=== PATIENT | female | born 1955 | race Caucasian/White ===

== ENCOUNTER 2020-06-16 07:56 | Outpatient (REF) | payer MEDICARE, BC, SELFPAY ==
--- NOTE | 2020-06-16 08:12 | US_ITS ---
EXAMINATION: US ABDOMEN COMPLETE CLINICAL INFORMATION: Cholelithiasis. COMPARISON: Abdominal ultrasound dated 04/14/2011 TECHNIQUE: Real-time imaging of the abdominal viscera. FINDINGS: PANCREAS: Normal. ABDOMINAL AORTA: The visualized proximal segment is normal in caliber. INFERIOR VENA CAVA: Visualized portions are normal. LIVER: The liver demonstrates normal size, contour and echogenicity. No focal lesion or intrahepatic biliary duct dilatation. GALLBLADDER: There is some debris within the gallbladder. No gallbladder wall thickening, tenderness, or pericholecystic fluid. COMMON BILE DUCT: Normal in caliber measuring 0.4 cm in diameter. RIGHT KIDNEY: No hydronephrosis. No renal calculi or focal parenchymal lesions. The kidney measures 11.0 cm in maximum dimension. LEFT KIDNEY: No hydronephrosis. No renal calculi or focal parenchymal lesions. The kidney measures 10.0 cm in maximum dimension. SPLEEN: Normal. The spleen measures 9.3 cm in maximum dimension. FREE FLUID: None. IMPRESSION: No evidence of acute cholecystitis.
--- NOTE | 2020-06-16 08:12 | US_ITS ---
EXAMINATION: US THYROID CLINICAL INFORMATION: Thyroid nodule. COMPARISON: Ultrasound thyroid soft tissues dated 05/15/2019 and 05/20/2018. TECHNIQUE: Linear transducer grayscale and color Doppler examination with attention to the region of the thyroid. FINDINGS: SIZE: Measurements of the thyroid lobes and nodules are given in sagittal, anteroposterior and transverse dimensions respectively. Right Thyroid Lobe: 4.7 x 2.0 x 1.7 cm, volume 8.1 mL. Previously 4.5 x 2.1 x 1.4 cm, volume 6.7 mL. Parenchyma: The gland echotexture is homogeneous. Thyroid vascularity is normal. Left Thyroid Lobe: 4.2 x 1.3 x 1.3 cm, volume 3.8 mL. Previously 4.1 x 1.3 x 1.3 cm, volume 3.5 mL. Parenchyma: The gland echotexture is homogeneous. Thyroid vascularity is normal. Isthmus: 0.4 cm in maximum AP dimension. Previously 0.3 cm. RIGHT THYROID LOBE: There is 1 nodule seen. 1. Location: Upper. Size: 0.2 x 0.1 x 0.2 cm. Previous: Not seen. Nodule characteristics: Hypoechoic and cystic, smooth margin, no calcification and no intranodular flow. ISTHMUS: No nodules. LEFT THYROID LOBE: There are 2 nodules seen. 1. Location: Lower/lateral. Size: 0.3 x 0.2 x 0.2 cm. Previous: 0.3 x 0.2 x 0.2 cm. Nodule characteristics: Hypoechoic and cystic, smooth margin, no calcification and no intranodular flow. 2. Location: Lower. Size: 0.3 x 0.2 x 0.2 cm. Previous: 0.3 x 0.2 x 0.3 cm. Nodule characteristics: Hypoechoic and cystic, smooth margin, no calcification and no intranodular flow. NODES: No lymphadenopathy is seen in the tissue surrounding the thyroid gland. IMPRESSION: Small bilateral cystic nodules, newly appreciated on the right and unchanged on the left from 2019 exam.
== END 2020-06-16 07:57 | disposition home or self-care (01) ==
LOC: HO.US 07:56
PROVIDERS: PCP Internal Medicine; Visit Provider Internal Medicine
DX: E04.1 Nontoxic single thyroid nodule (principal); K80.20 Calculus of gallbladder without cholecystitis without obstruction
CPT/HCPCS: 76536; 76700

== ENCOUNTER 2020-10-01 12:02 | Outpatient (REF) | payer MEDICARE, BC, SELFPAY | END 2020-10-01 12:03 | disposition home or self-care (01) | LOC: HO.WFDLDS 12:02 | PROVIDERS: PCP Internal Medicine; Visit Provider Internal Medicine | DX: Z20.822 Contact with and (suspected) exposure to COVID-19 (principal) | CPT/HCPCS: 36415; C9803; U0003 ==

== ENCOUNTER 2021-03-04 06:27 | Day surgery (SDC) | payer MEDICARE, BC, SELFPAY ==
[2021-03-04] VITALS (9 sets, daily range): BP systolic 100–137; BP diastolic 58–76; PULSE 51–77; RESP 14–18; TEMP 36.5–36.9; O2SAT 97–100; BMI 20.2
--- NOTE | 2021-03-04 07:25 | P.HPSUR_ITS ---
Pre-Procedural Eval Section A Date of Service: 03/04/21 Section B Chief Complaint: screening Details of Present Illness: screening Present Medications: see Short Stay Collaborative assessment Medical History: No relevant PMH Allergies: Allergies Allergy/AdvReac Type Severity Reaction Status Date / Time No Known Allergies Allergy Unverified 05/27/20 16:05 seasonal Allergy Unknown Uncoded 06/30/19 00:00 Review of Systems Sugical H&P ROS: Negative: Constitution, Cardiovascular, Respiratory, Neurological, Psychiatric, Hem-Onc, Allergic/Immunologic, Gastrointestinal, Genitourinary, Musculoskeletal, Integumentary, Endocrine and Eyes/Ears/Nose/Throat Exam Surgical H&P Exam: Normal: HEENT, Normal: Heart, Normal: Lungs, Normal: Extre mities, Normal: Abdomen, Normal: Skin and Normal: Neurological Plan I have reviewed the history and physical and performed a pertinent physical examination on my patient. No changes have occurred unless specified.
--- NOTE | 2021-03-04 07:37 | HO.ANESPROP2 ---
HPI - Anesthesia Eval Consult details Narrative: 65 yo female patient here for colonoscopy PMFSH Active Problems Active Problems: All Active Problems (Updated 02/25/21 @ 08:42 by Tiffany Gallagher) Exposure to COVID-19 virus (Acute) Nausea and vomiting (Acute) Digestive symptoms (Acute) Hypercholesterolemia (Acute) Past Medical History Medical History (Updated 02/25/21 @ 08:42 by Tiffany Gallagher) Digestive symptoms Hypercholesterolemia Nausea & vomiting Nausea and vomiting OAB (overactive bladder) Family History Family history of problems with anesthesia: No Surgical History Surgical History (Updated 02/25/21 @ 08:36 by Tiffany Gallagher) Hx of colonoscopy Hx of eye surgery History of Problems with Anesthesia: Yes (PONV ?after conscious sedation) Social History Social History Patient Tobacco Use Status: Never used Tobacco Second Hand Smoke Exposure: No Use of substances other than those prescribed or required for medical reasons: No Are you DNR?: No Advance Directives: No Advance Directives Information Provided: No Advance Directives Date on File: 06/16/20 Nutrition Risks: No Nutritional Risk Patient : No : No Poor oral hygiene: No Meds Allergies Allergy/AdvReac Type Severity Reaction Status Date / Time No Known Allergies Allergy Unverified 05/27/20 16:05 seasonal Allergy Unknown Uncoded 06/30/19 00:00 Home Medications Medication Instructions Recorded Confirmed Last Taken Type oxybutynin chloride 5 mg 5 mg PO DAILY 09/27/20 02/25/21 Unknown History tablet,extended release 24 hr simvastatin 5 mg tablet 5 mg PO BEDTIME 09/27/20 02/25/21 Unknown History flaxseed oil 1,000 mg PO BID 02/25/21 02/25/21 Unknown History fluticasone propionate 2 spray INTRANASAL DAILY 02/25/21 02/25/21 Unknown History Exam Exam Date and Time: March 04, 2021 0737 Height,Weight and Vital Signs: Height 5 ft 4.5 in Weight 54.431 kg Last Vital Signs Temp 97.7 F 03/04/21 06:47 Pulse 56 03/04/21 06:47 Resp 18 03/04/21 06:47 BP 137/76 03/04/21 06:47 Pulse Ox 97 03/04/21 06:47 Airway Mallampati Class: II TM Dist: >3cm Neck ROM: Full Heart: RRR Lungs: CTAB Assessment and Plan Assessment Anesthesia Assessment: Anesthesia Plan Discussed and Chart Reviewed Final Anesthetic Review NPO: Yes ASA Class: II Final Preanesthetic Review: No Changes in Pt Med Stat, Meds/Allgs Chart Reviewed, Consent Obtained/Reviewed and Anes Risks/Benef Reviewed Patient Risk: Low Procedure Risk: Low Assessment/Block/Sedation in SS: Assess/Block/Sedation-SS Anesthetic Plan Anesthetic Plan: MAC: Disposition: Standard PACU
--- NOTE | 2021-03-04 08:25 | PM.OP ---
Brief Operative Note Date of Service: 03/04/21 Pre-op diagnosis: screening Procedure: colonosocpy Surgeon: Fabricio Sandoval Anesthesia: MAC Was an Guide Delegate used for this Procedure?: No Estimated blood loss (mL): 2 Pathology: other (rectal bx) Condition: stable Disposition: other
[2021-03-04] MEDS: ondansetron HCL 4 MG/2 ML VIAL IVPUSH (08:39)
[2021-03-04] MEDS: Lactated Ringers 1,000 ML 100 ML IVCONT (09:00)
[2021-03-04] MEDS: Scopolamine 1.5 MG PATCH.TD.3 EAR-BEHIND (09:08)
--- NOTE | 2021-03-04 14:31 | OP_ITS ---
SURGEON: Fabricio Sandoval MD INDICATIONS: Colon cancer screening and family history of colon cancer. PREOPERATIVE DIAGNOSIS: POSTOPERATIVE DIAGNOSIS: PROCEDURE PERFORMED: Colonoscopy to the terminal ileum with biopsy. ESTIMATED BLOOD LOSS: COMPLICATIONS: ANESTHESIA: Monitored anesthesia care. ASSISTANTS: SPECIMENS: DESCRIPTION OF PROCEDURE: History and physical was performed. The risks and benefits of the procedure were explained to the patient, and informed consent was obtained. The patient was placed in the left lateral decubitus position. A digital rectal exam was performed and it was found to be normal. The Olympus pediatric video colonoscope was introduced into the rectum and advanced to the cecum with the assistance of abdominal wall pressure. The cecum was identified by transillumination, palpation, and identification of the ileocecal valve. Examination was performed. The scope was removed. She tolerated the procedure well and was taken to the recovery area in stable condition. FINDINGS: The terminal ileum was examined and it appeared normal. The visualized colonic mucosa was normal. The quality of the prep was good. No polyps were identified. Retroflexed examination was normal. There was some mild nonspecific irritation in the rectum, which was biopsied. IMPRESSION: Normal colonoscopy. RECOMMENDATIONS: 1. Follow up biopsy results. 2. Repeat colonoscopy is recommended in 5 years due to family history. MD JEREMY Pendleton/RADUL / [id number]
== END 2021-03-04 13:41 | disposition home or self-care (01) ==
PROVIDERS: PCP Internal Medicine; Visit Provider Internal Medicine Gastroenterology
PROC: 0DJD8ZZ Inspection of Lower Intestinal Tract, Via Natural or Artificial Opening Endoscopic (ICD-10-PCS; CPT 45378; principal; 2021-03-04 07:30)
DX: Z12.11 Encounter for screening for malignant neoplasm of colon (principal); Z80.0 Family history of malignant neoplasm of digestive organs; Z86.010 Personal history of colon polyps; K62.89 Other specified diseases of anus and rectum; R68.89 Other general symptoms and signs; N32.81 Overactive bladder; Z79.899 Other long term (current) drug therapy; Z87.891 Personal history of nicotine dependence
CPT/HCPCS: 45380; 88305; J2250; J2405; J2550

== ENCOUNTER 2021-04-21 10:26 | Outpatient (REF) | payer MEDICARE, BC, SELFPAY | END 2021-04-21 10:27 | disposition home or self-care (01) | LOC: HO.WFDLDS 10:26 | PROVIDERS: Visit Provider Internal Medicine | DX: Z20.822 Contact with and (suspected) exposure to COVID-19 (principal) | CPT/HCPCS: C9803; U0003; U0005 ==

== ENCOUNTER 2021-04-26 07:10 | Outpatient (REF) | payer MEDICARE, BC, SELFPAY ==
[2021-04-26 10:46] LABS: MANUAL DIFF FLAG NO
[2021-04-26 10:59] LABS: Basophils Percent Auto 0.9 % (0-2); Eosinophils Absolute Auto 0.2 X10*3/uL (0.0-0.4); Eosinophils Percent Auto 3.9 % (0-4); Hematocrit 41.5 % (37-47); Hemoglobin 13.9 g/dl (12.0-16.0); Imm Gran Abs Auto 0.01 X10*3/uL (0.00-0.03); Imm Gran Pct Auto 0.2 % (0.0-0.4); Lymphocytes Absolute Auto 1.8 X10*3/uL (1.2-4.9); Lymphocytes Percent Auto 37.6 % (20-40); Mean Corpuscular HGB Conc 33.5 g/dl (31.0-35.0); Mean Corpuscular Hemoglobin 30.2 pg (27.0-33.0); Mean Corpuscular Volume 90.2 fL (80-98); Mean Platelet Volume 9.3 fL (9.4-12.3); Monocytes Absolute Auto 0.4 X10*3/uL (0.1-1.2); Monocytes Percent Auto 8.6 % (2-11); Neutrophils Absolute Auto 2.3 X10*3/uL (2.0-8.3); Neutrophils Percent Auto 48.8 % (45-73); Platelet Count 278 X10*3/uL (160-400); Red Cell Distribution Width 12.1 % (11.0-16.0); White Blood Count 4.7 X10*3/uL (4.8-10.8)
[2021-04-26 11:41] LABS: Alanine Aminotransferase 25 U/L (0-31); Albumin Level 4.2 g/dL (3.5-5.0); Alkaline Phosphatase 85 U/L (39-117); Anion Gap 10 (12-20); Aspartate Amino Transferase 28 U/L (5-31); Bilirubin Total 0.9 mg/dL (0.0-1.0); Blood Urea Nitrogen 16 mg/dL (9-16); Calcium 9.8 mg/dL (8.4-10.2); Carbon Dioxide 27 mmol/L (22-29); Chloride 107 mmol/L (96-108); Cholesterol 221 mg/dL; Estimated Glomerular Filt Rate > 60; Glucose Random 84 mg/dL (60-115); HDL Cholesterol 57 mg/dL; LDL Cholesterol Calculated 149 mg/dl; Potassium 4.1 mmol/L (3.3-5.1); Sodium 140 mmol/L (135-145); Total Protein 6.7 g/dL (6.5-8.0); Triglycerides 77 mg/dL
[2021-04-26 12:05] LABS: Free T4 (Free Thyroxine) 0.87 ng/dL (0.71-1.85); Thyroid Stimulating Hormone 3.12 uIU/mL (0.32-4.0)
[2021-04-26 13:03] LABS: Folate > 20.0 ng/mL (> or = 4.0); Vitamin B12 1005 pg/mL (200-900)
== END 2021-04-26 07:11 | disposition home or self-care (01) ==
LOC: HO.WFDLDS 07:10
PROVIDERS: Visit Provider Internal Medicine
DX: E78.00 Pure hypercholesterolemia, unspecified (principal)
CPT/HCPCS: 36415; 80053; 80061; 82306; 82607; 82746; 84439; 84443; 85025

== ENCOUNTER 2021-06-23 14:29 | Outpatient (REF) | payer MEDICARE, BC, SELFPAY ==
--- NOTE | ~2021-06-23 | MM_ITS ---
EXAMINATION: BONE DENSITOMETRY CLINICAL INDICATION: Other specified disorders of bone density and structure. COMPARISON: Baseline BD dated 04/29/2015. TECHNIQUE: Using a [employer] DXA System (software version: 13.1) manufactured by [employer], dual-energy x-ray absorptiometry was performed of the lumbar spine and left hip. The images are of good technical quality. Summary results are attached. FINDINGS: AP SPINE L1-L4: Current: BMD 0.961 g/cm2, Z-score 0.1, T-score -1.8, osteopenia, 2.2% increase from baseline (<5% change is not significant). Baseline: BMD 0.940 g/cm2. LEFT FEMUR, NECK: Current: BMD 0.746 g/cm2, Z-score -0.4, T-score -2.1, osteopenia. Baseline: BMD 0.780 g/cm2. LEFT FEMUR, TOTAL: Current: BMD 0.818 g/cm2, Z-score 0.0, T-score -1.5, osteopenia, 4.2% increase from baseline (<5% change is not significant). Baseline: BMD 0.785 g/cm2. IDENTIFIED RISK FACTORS: Menopause. HISTORY OF FRACTURE: None listed. MEDICATIONS: Calcium supplements or multivitamin, vitamin D. MM/XR DEXA axial skeleton IMPRESSION: 1. DIAGNOSIS: Osteopenia based on the lowest T-score value of -2.1 in the femoral neck applying World Health Organization criteria. 2. 10-YEAR FRACTURE RISK PREDICTION, FRAX: Major osteoporotic fracture (clinical spine, forearm, hip or shoulder) 10.3%. Hip fracture 1.9%. 3. Treatment Recommendations: NOF guidelines recommend consideration for treatment in postmenopausal women and men age 50 and older presenting with the following: -A hip or vertebral (clinical or morphometric) fracture. -T-score less than or equal to -2.5 at the femoral neck or spine after appropriate evaluation to exclude secondary causes. -Low bone mass at the hip or spine and a 10-year fracture probability by FRAX of greater than or equal to 3% for hip fracture or greater than or equal to 20% for major osteoporotic fracture based on the [place] adapted WHO algorithm. 4. Other Recommendations: All treatment decisions require clinical judgment and consideration of individual patient factors, including patient preferences, comorbidities, previous drug use, risk factors not captured in the FRAX model (e.g. frailty, falls, vitamin D deficiency, increased bone turnover, interval significant decline in bone density) and possible under or overestimation of fracture risk by FRAX. Additional medical evaluation for secondary cause of low bone mineral density may be appropriate. FUTURE SCAN RECOMMENDATION: People with diagnosed cases of osteoporosis or at high risk for fracture should have regular bone mineral density tests. For patients eligible for Medicare, routine testing is allowed once every 2 years. The testing frequency can be increased to one year for patients who have rapidly progressing disease, those who are receiving or discontinuing medical therapy to restore bone mass, or have additional risk factors.
== END 2021-06-23 14:30 | disposition home or self-care (01) ==
LOC: HO.MAMMO 14:29
PROVIDERS: PCP Internal Medicine; Visit Provider Internal Medicine
DX: Z13.820 Encounter for screening for osteoporosis (principal); Z78.0 Asymptomatic menopausal state; M85.80 Other specified disorders of bone density and structure, unspecified site
CPT/HCPCS: 77080

== ENCOUNTER 2021-07-05 14:38 | Outpatient (REF) | payer MEDICARE, BC, SELFPAY ==
--- NOTE | ~2021-07-05 | US_ITS ---
EXAMINATION: US THYROID CLINICAL INFORMATION: Nontoxic single thyroid nodule. COMPARISON: Thyroid ultrasound, most recent 06/16/2020. TECHNIQUE: Linear transducer mcpherson-scale and color Doppler examination with attention to the region of the thyroid. FINDINGS: SIZE: Measurements of the thyroid lobes and nodules are given in sagittal, anteroposterior and transverse dimensions respectively. Right Thyroid Lobe: 4.7 x 1.7 x 1.5 cm, volume 6.4 mL. Previously 4.7 x 2.0 x 1.7 cm, volume 8.1 mL. Parenchyma: The gland echotexture is homogeneous. Thyroid vascularity is normal. Left Thyroid Lobe: 4.1 x 1.1 x 1.3 cm, volume 3.0 mL. Previously 4.2 x 1.3 x 1.3 cm, volume 3.8 mL. Parenchyma: The gland echotexture is homogeneous. Thyroid vascularity is normal. Isthmus: 0.4 cm in maximum AP dimension. Previously 0.4 cm. Estimated total number of nodules greater than or equal to 1 cm: 0. There are small Sleeping Bag Filler nodules are described as follows: 1. Location: Right upper. Size: 0.2 x 0.2 x 0.2 cm, volume 0.003 mL. Previously: 0.2 x 0.1 x 0.2 cm, volume 0.002 mL. 2. Location: Left lower. Size: 0.3 x 0.2 x 0.2 cm, volume 0.007 mL. Previously: 0.3 x 0.2 x 0.2 cm, volume 0.007 mL. Nodule characteristics: Composition: Cystic(0). US/US thyroid IMPRESSION: Upper normal-size right lobe. Two small cystic nodules. According to TI RADS criteria, no imaging follow-up is indicated. ACR TI-RADS RECOMMENDATION REFERENCE: Ultrasound-guided fine-needle aspiration, followup ultrasound, no further follow up. * TR1 (0 point) and TR 2 (2 points): No FNA or follow up * TR3 (3 points): FNA if more than or equal to 2.5 cm in maximum dimension, followup ultrasound in 1, 3 and 5 years if 1.5 to 2.4 cm in maximum dimension. * TR4 (4-6 points): FNA if more than or equal to 1.5 cm in maximum dimension, followup ultrasound in 1, 2, 3 and 5 years if 1 to 1.4 cm in maximum dimension. * TR5 (more than or equal to 7 points): FNA if more than or equal to 1 cm in maximum dimension, followup ultrasound every year for 5 years if 0.5 to 0.9 cm in maximum dimension. * TR3, TR4 or TR5 nodules that are below the size threshold for follow up receive no follow up.
== END 2021-07-05 14:39 | disposition home or self-care (01) ==
LOC: HO.US 14:38
PROVIDERS: PCP Internal Medicine; Visit Provider Internal Medicine
DX: E04.1 Nontoxic single thyroid nodule (principal)
CPT/HCPCS: 76536

== ENCOUNTER 2021-08-23 08:06 | Outpatient (REF) | payer MEDICARE, BC, SELFPAY ==
[2021-08-23 12:22] LABS: Alanine Aminotransferase 31 U/L (0-31); Albumin Level 4.2 g/dL (3.5-5.0); Alkaline Phosphatase 77 U/L (39-117); Anion Gap 12 (12-20); Aspartate Amino Transferase 25 U/L (5-31); Bilirubin Total 0.5 mg/dL (0.0-1.0); Blood Urea Nitrogen 18 mg/dL (9-16); Carbon Dioxide 26 mmol/L (22-29); Chloride 106 mmol/L (96-108); Cholesterol 196 mg/dL; Estimated Glomerular Filt Rate > 60; Glucose Random 94 mg/dL (60-115); HDL Cholesterol 65 mg/dL; LDL Cholesterol Calculated 117 mg/dl; Potassium 4.1 mmol/L (3.3-5.1); Sodium 140 mmol/L (135-145); Total Protein 6.8 g/dL (6.5-8.0); Triglycerides 74 mg/dL
== END 2021-08-23 08:07 | disposition home or self-care (01) ==
LOC: HO.WFDLDS 08:06
PROVIDERS: Visit Provider Internal Medicine
DX: E78.00 Pure hypercholesterolemia, unspecified (principal)
CPT/HCPCS: 36415; 80053; 80061

== ENCOUNTER 2022-05-08 07:32 | Outpatient (REF) | payer MEDICARE, BC, SELFPAY ==
[2022-05-08 11:17] LABS: MANUAL DIFF FLAG NO
[2022-05-08 11:36] LABS: Basophils Absolute Auto 0.1 X10*3/uL (0.0-0.2); Basophils Percent Auto 1.5 % (0-2); Eosinophils Absolute Auto 0.2 X10*3/uL (0.0-0.4); Eosinophils Percent Auto 4.6 % (0-4); Hematocrit 42.7 % (37.0-47.0); Hemoglobin 14.5 g/dl (12.0-16.0); Imm Gran Abs Auto 0.01 X10*3/uL (0.00-0.03); Imm Gran Pct Auto 0.2 % (0.0-0.4); Lymphocytes Absolute Auto 1.8 X10*3/uL (1.2-4.9); Lymphocytes Percent Auto 39.1 % (20-40); Mean Corpuscular Hemoglobin 30.5 pg (27.0-33.0); Mean Corpuscular Volume 89.9 fL (80.0-98.0); Mean Platelet Volume 9.5 fL (9.4-12.3); Monocytes Absolute Auto 0.4 X10*3/uL (0.1-1.2); Monocytes Percent Auto 8.6 % (2-11); Neutrophils Absolute Auto 2.1 x10*3/uL (2.0-8.3); Platelet Count 254 X10*3/uL (160-400); Red Blood Count 4.75 X10*6/uL (4.20-5.50); Red Cell Distribution Width 11.9 % (11.0-16.0); White Blood Count 4.5 X10*3/uL (4.8-10.8)
[2022-05-08 12:21] LABS: Folate 19.9 ng/mL (> or = 4.0); Vitamin B12 651 pg/mL (200-900)
[2022-05-08 12:24] LABS: Alanine Aminotransferase 43 U/L (0-31); Albumin Level 4.2 g/dL (3.5-5.0); Alkaline Phosphatase 83 U/L (39-117); Anion Gap 14 (12-20); Aspartate Amino Transferase 39 U/L (5-31); Bilirubin Total 0.3 mg/dL (0.0-1.0); Blood Urea Nitrogen 22 mg/dL (9-16); Calcium 9.6 mg/dL (8.4-10.2); Carbon Dioxide 27 mmol/L (22-29); Chloride 106 mmol/L (96-108); Cholesterol 214 mg/dL; Estimated Glomerular Filt Rate > 60; Glucose Random 93 mg/dL (60-115); HDL Cholesterol 59 mg/dL; LDL Cholesterol Calculated 140 mg/dl; Potassium 4.7 mmol/L (3.3-5.1); Sodium 142 mmol/L (135-145); Total Protein 6.8 g/dL (6.5-8.0); Triglycerides 78 mg/dL
[2022-05-08 12:34] LABS: Free T4 (Free Thyroxine) 0.89 ng/dL (0.71-1.85); Thyroid Stimulating Hormone 5.11 uIU/mL (0.32-4.0); Vitamin D 25-OH Total 75.3 ng/mL (>30)
== END 2022-05-08 07:33 | disposition home or self-care (01) ==
LOC: HO.WFDLDS 07:32
PROVIDERS: Visit Provider Internal Medicine
DX: E78.00 Pure hypercholesterolemia, unspecified (principal)
CPT/HCPCS: 36415; 80053; 80061; 82306; 82607; 82746; 84439; 84443; 85025

== ENCOUNTER 2022-07-13 07:46 | Outpatient (REF) | payer MEDICARE, BC, SELFPAY ==
--- NOTE | ~2022-07-13 | FL_ITS ---
EXAMINATION: FLUOROSCOPY UPPER GI WITH AIR. BARIUM SWALLOW CLINICAL INFORMATION: Dysphagia COMPARISON: None. TECHNIQUE: A barium swallow with upper GI examination is performed under fluoroscopic observation with digital image acquisition. The patient drank effervescent granules, thick and thin barium consistencies without difficulty. Patient was observed during swallowing in the lateral projection using a cine loop sequence The patient also swallowed a 13 mm barium tablet with water under fluoroscopic observation. FINDINGS: There were a few tertiary contractions of the distal esophagus. Otherwise normal motility and morphology. Normal caliber. No hiatal hernia. No spontaneous gastroesophageal reflux. The stomach demonstrates normal motility with normal rugal folds. The duodenal bulb and proximal duodenum demonstrate no evidence of ulcer, mass lesion, or displacement. The barium tablet coursed promptly into the stomach. No esophageal stricture. FLUOROSCOPY TIME: 2.2 minutes. 42. Fluoroscopy dose: 7.683 Gycm2 ADDITIONAL FINDINGS: None. FL/FL upper GI w air w Ba Swallow IMPRESSION: Few tertiary contractions of the distal esophagus with slight delay in emptying. Otherwise normal UGI. Normal esophageal and gastric motility. No hiatal hernia.
[2022-07-13 08:39] LABS: Alanine Aminotransferase 40 U/L (0-31); Albumin Level 4.4 g/dL (3.5-5.0); Alkaline Phosphatase 88 U/L (39-117); Anion Gap 15 (12-20); Aspartate Amino Transferase 38 U/L (5-31); Bilirubin Direct 0.2 mg/dL (0.0-0.5); Bilirubin Total 0.6 mg/dL (0.0-1.0); Blood Urea Nitrogen 18 mg/dL (9-16); Calcium 10.1 mg/dL (8.4-10.2); Carbon Dioxide 27 mmol/L (22-29); Chloride 105 mmol/L (96-108); Cholesterol 208 mg/dL; Estimated Glomerular Filt Rate > 60; Glucose Random 93 mg/dL (60-115); HDL Cholesterol 60 mg/dL; LDL Cholesterol Calculated 125 mg/dl; Potassium 4.7 mmol/L (3.3-5.1); Sodium 142 mmol/L (135-145); Total Protein 7.1 g/dL (6.5-8.0); Triglycerides 115 mg/dL
[2022-07-13 09:03] LABS: Free T4 (Free Thyroxine) 0.92 ng/dL (0.71-1.85); Thyroid Stimulating Hormone 4.83 uIU/mL (0.32-4.0)
[2022-07-13 10:20] LABS: HBS Num1 1.21 mIU/mL (0-7.99); HBsAGNum1 0.18 S/CO (0.00-0.99); Hepatitis B Core Antibody Nonreactive (Nonreactive); Hepatitis B Surface Antigen Negative (Negative); ~HepC Num1 0.08 S/CO (0.00-0.79); ~Hepatitis B Surface Antibody NONREACTIVE (Nonreactive); ~Hepatitis C Antibody Nonreactive (Nonreactive)
== END 2022-07-13 07:47 | disposition home or self-care (01) ==
LOC: HO.XRAY 07:46
PROVIDERS: PCP Internal Medicine; Visit Provider Internal Medicine
DX: E78.00 Pure hypercholesterolemia, unspecified (principal); R79.89 Other specified abnormal findings of blood chemistry; E04.1 Nontoxic single thyroid nodule; R13.10 Dysphagia, unspecified
CPT/HCPCS: 36415; 74246; 80053; 80061; 82248; 84439; 84443; 86704; 86706; 86803; 87340

== ENCOUNTER 2022-07-18 07:48 | Outpatient (REF) | payer MEDICARE, BC, SELFPAY ==
--- NOTE | ~2022-07-18 | US_ITS ---
EXAMINATION: US ABDOMEN COMPLETE CLINICAL INFORMATION: Other specified abnormal findings of blood chemistry. COMPARISON: Ultrasound abdomen complete 06/16/2020. TECHNIQUE: Real-time imaging of the abdominal viscera. FINDINGS: PANCREAS: Normal. ABDOMINAL AORTA: The proximal, mid, and distal segments are normal in caliber. INFERIOR VENA CAVA: Visualized portions are normal. LIVER: Normal. The liver is normal in size. The liver contour is normal. Parenchymal echogenicity is normal. No focal hepatic lesion. There is no intrahepatic biliary duct dilatation seen. GALLBLADDER: Gallbladder wall thickness is 0.2 cm. The gallbladder is physiologically distended without evidence of stones, sludge, polyps, wall thickening or pericholecystic fluid. COMMON BILE DUCT: Normal in caliber measuring 0.5 cm in diameter. RIGHT KIDNEY: There is mild pelvic fullness. No hydronephrosis is seen. No renal calculi or focal parenchymal lesions. The kidney measures 10.0 cm in maximum dimension. LEFT KIDNEY: Normal. No hydronephrosis. No renal calculi or focal parenchymal lesions. The kidney measures 9.0 cm in maximum dimension. SPLEEN: Normal. The spleen measures 8.6 cm in maximum dimension. FREE FLUID: None. US/US abdomen complete IMPRESSION: Mild pelvic right renal fullness. No echogenic renal calculi are seen. The rest of the abdominal ultrasound is unremarkable.
== END 2022-07-18 07:49 | disposition home or self-care (01) ==
LOC: HO.US 07:48
PROVIDERS: PCP Internal Medicine; Visit Provider Internal Medicine
DX: R79.89 Other specified abnormal findings of blood chemistry (principal)
CPT/HCPCS: 76700

== ENCOUNTER 2023-01-29 15:14 | Outpatient (REF) | payer MEDICARE, BC, SELFPAY ==
--- NOTE | ~2023-01-29 | XR_ITS ---
EXAMINATION: XR CHEST CLINICAL INFORMATION: Other specified symptoms and signs involving involving the circumflex of the pituitary respiratory system COMPARISON: None available. TECHNIQUE: 2 views of the chest were obtained. FINDINGS: The cardiac and mediastinal contours are normal. There is increased retrosternal density seen on the lateral view posterior to the lower sternum. This may be artifactual due to rotation on the lateral view. The lungs are otherwise clear. No pleural effusion or pneumothorax. Degenerative changes of the spine. XR/XR chest 2V IMPRESSION: Retrosternal density seen on the lateral view. This may be artifactual related to rotation. Repeat chest x-ray recommended.
== END 2023-01-29 15:15 | disposition home or self-care (01) ==
LOC: HO.XRAY 15:14
PROVIDERS: Visit Provider Family Medicine
DX: R09.89 Other specified symptoms and signs involving the circulatory and respiratory systems (principal)
CPT/HCPCS: 71046

== ENCOUNTER 2023-02-08 15:46 | Outpatient (REF) | payer MEDICARE, BC, SELFPAY ==
--- NOTE | ~2023-02-08 | XR_ITS ---
EXAMINATION: XR CHEST CLINICAL INFORMATION: Retrosternal density COMPARISON: Chest x-ray 01/29/2023 TECHNIQUE: 2 views of the chest were obtained. FINDINGS: Cardiac silhouette is normal in size. The lungs are well aerated. There is no lobar consolidation. No pleural effusion or pneumothorax. Persistent but slightly less prominent retrosternal density. No acute osseous abnormality. XR/XR chest 2V IMPRESSION: 1. No acute pulmonary pathology. 2. Persistent but slightly less prominent retrosternal density. This can be further assessed with chest CT if clinically indicated.
== END 2023-02-08 15:47 | disposition home or self-care (01) ==
LOC: HO.XRAY 15:46
PROVIDERS: PCP Internal Medicine; Visit Provider Internal Medicine
DX: J98.4 Other disorders of lung (principal)
CPT/HCPCS: 71046

== ENCOUNTER 2023-02-09 15:34 | Outpatient (REF) | payer MEDICARE, BC, SELFPAY ==
[2023-02-09 16:37] LABS: Blood Urea Nitrogen 20 mg/dL (9-16); Estimated Glomerular Filt Rate > 60
== END 2023-02-09 15:35 | disposition home or self-care (01) ==
LOC: HO.LAB 15:34
PROVIDERS: PCP Internal Medicine; Visit Provider Internal Medicine
DX: J98.4 Other disorders of lung (principal)
CPT/HCPCS: 36415; 82565; 84520

== ENCOUNTER 2023-02-12 13:05 | Outpatient (REF) | payer MEDICARE, BC, SELFPAY ==
--- NOTE | ~2023-02-12 | CT_ITS ---
EXAMINATION: CT CHEST WITH CONTRAST CLINICAL INFORMATION: Retrosternal density. COMPARISON: Chest x-rays of 02/08/2023 and 01/29/2023. TECHNIQUE: Multidetector volumetric CT imaging of the chest was obtained after the administration of 65 mL of Omnipaque 350 intravenous contrast without immediate adverse reactions. Axial MIP volume rendering provided. Sagittal and coronal reformatted images were obtained. This CT examination was performed using dose optimization techniques as appropriate, variously including the following: *Automated exposure control *Adjustment of mA and/or kV according to patient size (this includes techniques or standardized protocols for targeted exams where dose is matched to indication/reason for exam; i.e. extremities or head) *Use of iterative reconstruction technique DLP: 80 mGy-cm FINDINGS: LUNGS: The central airways are patent. No bronchial wall thickening or bronchiectasis appreciated. No emphysematous changes are seen. There are some sub-4 mm densities present. There are a few scattered calcified granulomas seen. A few linear or oval intrafissural lymph nodes are present. There is a 3 mm region of mucus plugging seen within the right middle lobe on image [address] series #7. There are some bilateral dependent regions of pleural-parenchymal density which may be related to atelectasis. Within the anterior aspect of the right upper lobe extending to the minor fissure there is a 1.9 x 1.3 x 2.5 cm soft tissue density which is also abutting the anterior pericardium and anterior pleural surface. No calcification is identified. MEDIASTINUM: Heart normal size. No pericardial effusion. No coronary artery calcification is seen. Visualized thyroid gland unremarkable. No thoracic aortic aneurysm or dissection. No hilar or mediastinal lymphadenopathy appreciated. No internal mammary lymphadenopathy is seen. PLEURA: There is no pleural effusion. No pleural mass or thickening. AXILLA: No lymphadenopathy. UPPER ABDOMEN: Unremarkable. OSSEOUS STRUCTURES: No suspicious destructive bony lesion identified. CT/CT chest w IV con IMPRESSION: 1. Right upper lobe soft tissue lesion measuring up to 2.5 cm in diameter. According to the UPDATED 2017 Fleischner Society recommendations, the advised follow-up imaging for a single solid nodule measuring 8 mm or greater is: Consider CT, PET/CT, or tissue sampling at 3 months. 2. Old granulomatous disease.
[2023-02-12] MEDS: iohexoL 350 MG/ML 100 ML INFUS..BTL 85 ML IV (15:13)
== END 2023-02-12 13:06 | disposition home or self-care (01) ==
LOC: HO.CT 13:05
PROVIDERS: PCP Internal Medicine; Visit Provider Internal Medicine
DX: J98.4 Other disorders of lung (principal)
CPT/HCPCS: 71260; Q9967

== ENCOUNTER → 2023-02-23 09:47 | Outpatient (BNVA) | payer MEDICARE, BC, SELFPAY | PROVIDERS: PCP Internal Medicine; Visit Provider Surgery | DX: R91.8 Other nonspecific abnormal finding of lung field (principal); J98.4 Other disorders of lung | CPT/HCPCS: 99202 ==

== ENCOUNTER 2023-05-15 12:42 | Outpatient (REF) | payer MEDICARE, BC, SELFPAY ==
--- NOTE | ~2023-05-15 | CT_ITS ---
EXAMINATION: CT CHEST WITHOUT CONTRAST CLINICAL INFORMATION: Prior abnormal imaging. COMPARISON: 02/12/2023 TECHNIQUE: Multidetector volumetric CT imaging of the chest was done. Axial MIP volume rendering provided. Sagittal and coronal reformatted images were obtained. This CT examination was performed using dose optimization techniques as appropriate, variously including the following: *Automated exposure control *Adjustment of mA and/or kV according to patient size (this includes techniques or standardized protocols for targeted exams where dose is matched to indication/reason for exam; i.e. extremities or head) *Use of iterative reconstruction technique DLP: 167 mGy-cm FINDINGS: LUNGS: No suspicious pulmonary nodule. No focal consolidation. Central airways are patent. Interval resolution of nodular density in the anterior right upper lobe extending to the interlobar fissure. MEDIASTINUM: Imaged thyroid gland is unremarkable. No bulky axillary, hilar or mediastinal lymphadenopathy. Great vessels are of normal caliber. Heart size is normal. No pericardial effusion. CORONARY ARTERY CALCIFICATION: None visualized on this study. PLEURA: No pleural effusion. UPPER ABDOMEN: No adrenal mass. OSSEOUS STRUCTURES: No destructive bone lesions. CT/CT chest wo IV con IMPRESSION: No suspicious pulmonary nodule.
== END 2023-05-15 12:43 | disposition home or self-care (01) ==
LOC: HO.CT 12:42
PROVIDERS: PCP Internal Medicine; Visit Provider Surgery
DX: R91.8 Other nonspecific abnormal finding of lung field (principal)
CPT/HCPCS: 71250

== ENCOUNTER 2023-05-19 07:23 | Outpatient (REF) | payer MEDICARE, BC, SELFPAY ==
[2023-05-19 07:51] LABS: MANUAL DIFF FLAG NO
[2023-05-19 08:19] LABS: Basophils Absolute Auto 0.1 X10*3/uL (0.0-0.2); Basophils Percent Auto 1.8 % (0-2); Eosinophils Absolute Auto 0.2 X10*3/uL (0.0-0.4); Eosinophils Percent Auto 4.6 % (0-4); Hematocrit 39.8 % (37.0-47.0); Hemoglobin 13.4 g/dl (12.0-16.0); Imm Gran Abs Auto 0.01 X10*3/uL (0.00-0.03); Imm Gran Pct Auto 0.3 % (0.0-0.4); Lymphocytes Absolute Auto 1.3 X10*3/uL (1.2-4.9); Lymphocytes Percent Auto 33.2 % (20-40); Mean Corpuscular HGB Conc 33.7 g/dl (31.0-35.0); Mean Corpuscular Hemoglobin 30.2 pg (27.0-33.0); Mean Corpuscular Volume 89.8 fL (80.0-98.0); Mean Platelet Volume 9.2 fL (9.4-12.3); Monocytes Absolute Auto 0.3 X10*3/uL (0.1-1.2); Monocytes Percent Auto 8.4 % (2-11); Neutrophils Percent Auto 51.7 % (45-73); Platelet Count 252 X10*3/uL (160-400); Red Blood Count 4.43 X10*6/uL (4.20-5.50); Red Cell Distribution Width 12.2 % (11.0-16.0); White Blood Count 3.9 X10*3/uL (4.8-10.8)
[2023-05-19 08:59] LABS: Alanine Aminotransferase 36 U/L (0-31); Alkaline Phosphatase 78 U/L (39-117); Anion Gap 9 (12-20); Aspartate Amino Transferase 33 U/L (5-31); Bilirubin Total 0.5 mg/dL (0.0-1.0); Blood Urea Nitrogen 18 mg/dL (9-16); Carbon Dioxide 26 mmol/L (22-29); Chloride 110 mmol/L (96-108); Cholesterol 195 mg/dL (<200); Estimated Glomerular Filt Rate > 60; Glucose Random 84 mg/dL (60-115); HDL Cholesterol 59 mg/dL (>40); LDL Cholesterol Calculated 120 mg/dL (<100); Sodium 141 mmol/L (135-145); Total Protein 6.6 g/dL (6.5-8.0); Triglycerides 84 mg/dL (<150)
[2023-05-19 09:09] LABS: Free T4 (Free Thyroxine) 0.97 ng/dL (0.71-1.85); Thyroid Stimulating Hormone 3.35 uIU/mL (0.32-4.0); Vitamin D 25-OH Total 73.2 ng/mL (>30)
[2023-05-19 09:19] LABS: Folate 16.3 ng/mL (> or = 4.0); Vitamin B12 825 pg/mL (200-900)
== END 2023-05-19 07:24 | disposition home or self-care (01) ==
LOC: HO.LAB 07:23
PROVIDERS: PCP Internal Medicine; Visit Provider Internal Medicine
DX: K21.9 Gastro-esophageal reflux disease without esophagitis (principal); E03.8 Other specified hypothyroidism; E78.00 Pure hypercholesterolemia, unspecified; M85.80 Other specified disorders of bone density and structure, unspecified site; E55.9 Vitamin D deficiency, unspecified
CPT/HCPCS: 36415; 80053; 80061; 82306; 82607; 82746; 84439; 84443; 85025

== ENCOUNTER 2023-05-25 10:48 | Outpatient (AMB) | payer MEDICARE, BC, SELFPAY ==
--- NOTE | 2023-05-25 11:34 | MHC.OFFVIS ---
Intake Vital Signs 05/25/23 11:35 Height 5 ft 4 in Weight 119 lb BMI 20.4 BP 110/70 Blood Pressure Location Lt brachial Position Sitting Pulse 90 Pulse Oximetry (%) 98 Intake Visit Reasons: Lung Mass Allergies No Known Allergies Allergy (Verified 05/25/23 11:36) seasonal Allergy (Unknown, Uncoded 05/25/23 11:36) Itchy Eyes Medication List - Last Reconciled 05/25/23 by Herlinda Rowell MD ascorbate calcium (vitamin C) 500 mg PO DAILY azithromycin (Zithromax Z-Tate) take 500 mg today (day 1), then 250 mg for 4 days (days 2-5) PO 5 days C,E,zinc,copper 88-[id number] 250-5-1 mg (Ocuvite Adult 50 Plus) 1 cap PO DAILY calcium carb,lactat-vitamin D3 200 mg-6.25 mcg (250 unit) 2 tabs PO DAILY cetirizine 10 mg PO DAILY PRN clobetasol 0.05% 1 appl topical BEDTIME flaxseed oil 1,000 mg PO BID fluticasone propionate 50 mcg/actuation 2 sprays intranasal DAILY tlnpylwq-eku-etodi-[id number]-gbns 500-500-66.7 mg (Hqvcpffuzhz-Dqiphnytfgw-GBB (with antiox)) tabs PO mometasone 0.1% 1 appl topical DAILY Monodox (doxycycline monohydrate) 100 mg PO DAILY NS omeprazole 20 mg PO DAILY 90 days oxybutynin chloride ER 5 mg PO DAILY prednisone 40 mg (2 x 20 mg) PO DAILY 5 days psyllium husk (Fiber (psyllium husk)) 0.4 grams PO BEDTIME simvastatin 5 mg PO BEDTIME 90 days triamcinolone acetonide 0.1% 1 appl topical BID HPI Lung Mass HPI Details 67-year-old woman nonsmoker never smoker who January 29 actually presented in to urgent care with a cough and was diagnosed with a sinus infection at that time was given antibiotics in the form of a Z-Tate with some improvement but not resolution of her symptoms. Around that time she had a chest x-ray followed by a 2nd chest x-ray 2 weeks ago which was ultimately followed with a CT scan of the chest done on 02/12/2023. This scan was reviewed interpreted by me directly. It shows a 1.9 x 1.3 x 2.3 cm anterior right upper lobe irregular looking pulmonary nodule at does have an inflammatory look to it. There is also old granulomatous disease in some sub 5 mm pulmonary nodules. There is no pleural fluid in there is no mediastinal lymphadenopathy. At that time, given her symptoms and its appearance I repeated her CT scan which was done on 05/17/23 which I reviewed and interepreted showing resolution of the nodue in question in the right upper lobe indicating this was likely an inflammatory nodule. She is very active and reports feeling generally in good health. She does report a 5-9 lb weight loss over the past year denies decreased appetite fevers chills or soaking sweats. She denies chest pain or hemoptysis. With this episode she does report some shortness of breath although she is very active with wheezing and a persistent cough that she says is worse in the morning and at night but this does seem to be slowly improving. She denies any neurologic symptoms. Her cough and sob has now totally resolved and she feels well. [facility] Medical History Urinary incontinence, mixed History of COVID-19 Vitamin D deficiency Otosclerosis Peptic ulcer disease Allergic rhinitis Cholelithiasis Thyroid nodule Tubular adenoma of colon (~2006) Hypercholesterolemia Surgical History History of eye surgery History of colonoscopy Family History Father Colorectal cancer Mother Colorectal cancer Social History Housing: House Alcohol intake: never Patient Tobacco Use Status: Former Tobacco user Years Smoked: stopped 12/1986 e-Cigarette/Vaping Use: Never Used Second Hand Smoke Exposure: No Advance Directives Date on File: 06/16/20 service: No Current occupational status: employed Cognitive needs: No Hearing needs: No Vision needs: Yes Physical Exam Vital Signs: Last Vital Signs Pulse 90 05/25/23 11:35 BP 110/70 05/25/23 11:35 Pulse Ox 98 05/25/23 11:35 BMI result Body Mass Index 20.4 nad rrr ctab abd soft nl bs no edema Assessment & Plan Assessment & Plan (1) Mass of upper lobe of right lung: Comment: (1.9 x 1.3 x 2.5 cm RUL soft tissue density extending to minor fissure - 02/12/[address] - no longer noted on 05/15/[address]) Code(s): R91.8 - Other nonspecific abnormal finding of lung field Plan: I went over the ct scan with her and explained that the resolution of the nodularity indicates this was indeed an inflammatory or infectious nodule correlating with her symptoms at the time. She was quite pleased with this and all questions were answered. She can follow up as needed moving forward. Coding Level of Care Code Est Pt Level 4 (28348) Diagnoses Mass of upper lobe of right lung R91.8 Time Spent (min) 32
[2023-05-25 11:35] VITALS: BP 110/70; PULSE 90; O2SAT 98; BMI 20.4
== END 2023-05-25 13:01 | disposition home or self-care (01) ==
PROVIDERS: PCP Internal Medicine; Visit Provider Surgery
DX: R91.8 Other nonspecific abnormal finding of lung field (principal)

== ENCOUNTER → 2023-05-25 10:48 | Outpatient (BNVA) | payer MEDICARE, BC, SELFPAY | PROVIDERS: PCP Internal Medicine; Visit Provider Surgery | DX: R91.8 Other nonspecific abnormal finding of lung field (principal) | CPT/HCPCS: 99212 ==

== ENCOUNTER 2023-06-11 14:37 | Outpatient (AMB) | payer MEDICARE, BC, SELFPAY ==
[2023-06-11 14:38] VITALS: BP 132/76; PULSE 65; O2SAT 100; BMI 20.1
--- NOTE | 2023-06-11 14:38 | A.OFFPC_ITS ---
Vital Signs 06/11/23 14:38 Height 5 ft 4 in Weight 117 lb 0.4 oz BMI 20.1 BP 132/76 Blood Pressure Location Lt brachial Position Sitting Pulse 65 Pulse Source Pulse Oximeter Temp Source Skin Pulse Oximetry (%) 100 Oxygen Delivery Method Room Air Intake Visit Reasons: Annual Exam Intake Note: Patient is here today for a physical. [employer] Required: No Allergies No Known Allergies Allergy (Verified 06/11/23 14:39) seasonal Allergy (Unknown, Uncoded 06/11/23 14:39) Itchy Eyes Medication List - Last Reconciled 06/11/23 by Ida Campa MD ascorbate calcium (vitamin C) 500 mg PO DAILY C,E,zinc,copper 86-[id number] 250-5-1 mg (Ocuvite Adult 50 Plus) 1 cap PO DAILY calcium carb,lactat-vitamin D3 200 mg-6.25 mcg (250 unit) 2 tabs PO DAILY cetirizine 10 mg PO DAILY PRN clobetasol 0.05% 1 appl topical BEDTIME flaxseed oil 1,000 mg PO BID fluticasone propionate 50 mcg/actuation 2 sprays intranasal DAILY yuncwhkb-mqo-jhjxx-[id number]-tpkq 500-500-66.7 mg (Indujrvvalq-Rmeszydekfd-KDI (with antiox)) tabs PO mometasone 0.1% 1 appl topical DAILY omeprazole 20 mg PO DAILY PRN oxybutynin chloride ER 5 mg PO DAILY psyllium husk (Fiber (psyllium husk)) 0.4 grams PO BEDTIME simvastatin 5 mg PO BEDTIME 90 days triamcinolone acetonide 0.1% 1 appl topical BID Tobacco use date assessed: 06/11/23 Fall risk assessment: No Falls in past year Last assessed Fall Risk: 06/11/23 Dental Screening Dental Screen Date: 06/11/23 Did you have a dental visit in the last 12 months?: Yes Did you have a dental problem in the last 6 months where you did not have access to dental care?: No Was dental information given to patient?: Patient has dentist HPI Annual Exam HPI Details 67-year-old female with hypercholesterol emia GERD coming here for physical exam. Last seen in September 2022. Patient had an LFT elevation and TSH. Patient's colonoscopy is up-to-date, has osteopenia and last bone density was done in June 2021. Mammogram is due patient had a CT scan done in May 2023 and results show no suspicious pulmonary nodule R =neck pain, deny fall or trauma patient has a nonhealing wound on the right Amber Nasi and so discussed with the patient about this and has dermatology to see Dr. Robison in so advised to mention to derm. [facility] Medical History Urinary incontinence, mixed History of COVID-19 Vitamin D deficiency Otosclerosis Peptic ulcer disease Allergic rhinitis Cholelithiasis Thyroid nodule Tubular adenoma of colon (~2006) Hypercholesterolemia Surgical History History of eye surgery History of colonoscopy Family History Father Colorectal cancer Mother Colorectal cancer Social History Housing: House Alcohol intake: never Patient Tobacco Use Status: Former Tobacco user Years Smoked: stopped 12/1986 e-Cigarette/Vaping Use: Never Used Second Hand Smoke Exposure: No Advance Directives Date on File: 06/16/20 service: No Current occupational status: employed Cognitive needs: No Hearing needs: No Vision needs: Yes Questionnaire Thrive Questionnaire Date Thrive assessed: 09/21/22 AUDIT C Alcohol Use Questionnaire (AUDIT-C) 1. How often do you have a drink containing alcohol?: Never 3. How often do you have six or more drinks on one occasion?: Never Total Score: 0 LANA-7 AMB Questionnaire LANA-7 Date LANA - 7 assessed: 09/21/22 Feeling nervous, anxious, or on edge: 0 = Not at all Not being able to stop or control worryin = Not at all Worrying too much about different things: 0 = Not at all Trouble relaxin = Not at all Being so restless that it is hard to sit still: 0 = Not at all Becoming easily annoyed or irritable: 0 = Not at all Feeling afraid as if something awful might happen: 0 = Not at all Total LANA-7 score (0-4 normal; 5-9 mild; 10-14 moderate; 15-21 severe): 0 Source: Developed by Drs. Wally Agustin, Lenore Garrison, Lee Limon and colleagues, with an educational jose carlos from [employer]. Review of Systems Const Denies poor appetite and Denies weakness Eyes Denies no additional complaints ENT Reports Normal hearing present, Denies dizziness, Denies nasal congestion, Denies tinnitus and Denies sore throat Card Denies chest pain, Denies syncope, Denies rapid heart rate and Denies dyspnea Resp Denies cough and Denies dyspnea GI Denies change in stool character, Reports constipation, Denies diarrhea, Denies nausea and Denies vomiting Denies urinary frequency, Denies difficulty voiding and Denies dysuria Neuro Reports Normal hearing present, Denies confusion, Denies dizziness, Denies syncope and Denies weakness Psych Denies confusion Physical exam (Primary Care) Vital Signs: Last Vital Signs Pulse 65 06/11/23 14:38 BP 132/76 06/11/23 14:38 Pulse Ox 100 06/11/23 14:38 Oxygen Delivery Method Room Air 06/11/23 14:38 BMI result Body Mass Index 20.1 Tobacco/Smoking Status: Tobacco use Status Tobacco use date assessed 06/11/23 06/11/23 14:40 Patient Tobacco Use Status Former Tobacco user 06/11/23 14:40 e-Cigarette/Vaping Use Never Used 06/11/23 14:40 Thrive Assessment: Date of Thrive Assessment Date Thrive assessed 09/21/22 06/11/23 14:40 Const General: alert and awake; No confusion Orientation/consciousness: No confusion HENMT Head: Yes normocephalic Ears: external ears normal and TM's normal bilaterally Face and sinus: Yes normal facial exam Mouth: moist mucous membranes Throat: Yes tonsils normal Eyes Conjunctivae: conjunctivae normal Pupils: Equal, round and reactive pupils present and Pupil accommodation reflex normal Direct Ophthalmoscopy: normal light reflex Neck Neck: No lymphadenopathy Thyroid: Thyroid normal Chest Chest palpation & inspection: normal inspection of the chest Resp Effort & Inspection: normal respiratory effort and no audible wheezes Auscultation: clear to auscultation bilaterally, no crackles, no wheezes and lung sounds not diminished Cardio Rate: regular rate Rhythm: regular rhythm Peripheral pulses: radial pulses present and dorsalis pedis present GI Palpation (GI): no masses Auscultation: normal bowel sounds and normoactive bowel sounds Rectal Exam - Female: deferred Skin General skin exam: no rashes or lesions noted Rashes: no rashes Neuro General: deep tendon reflexes 2+ bilaterally and No confusion Cranial nerves: Yes Equal, round and reactive pupils present, Yes Midline tongue present, Yes Normal hearing present and Yes Ability to bilaterally elevate shoulders present Cognition (Neuro): normal cognition Gait exam (Neuro): Normal gait present Motor exam (neuro): 5/5 motor strength present throughout Deep tendon reflexes (DTR's): Right brachioradialis reflex intensity grade: 2+, Left brachioradialis reflex intensity grade: 2+, Right patellar reflex intensity grade: 2+ and Left patellar reflex intensity grade: 2+ Extrem General: No edema Office Procedures Flu Questionnaire Does the patient have a severe egg allergy?: No Does the patient have severe life threatening allergies?: No Does the patient have a fever or illness today?: No Has the patient ever had Guillain-[place] Syndrome?: No Has the patient ever had any past reaction to a flu shot?: No Immunizations flu vacc [id number] 6mos up(PF) 60 mcg(15 mcgx4)/0.5 mL IM syringe Performing Provider: Ida Campa MD [facility] Documented (not given) by: Lorraine Pillai Eleonora on 06/11/23 14:49 Reason Not Given: Patient Refused Assessment and Plan Assessment & Plan (1) Annual physical exam: Code(s): Z00.00 - Encounter for general adult medical examination without abnormal findings (2) Osteopenia: Onset Date: ~2014 Comment: (Bone Dexa T-score: -2.0 on 05/07/15; -2.1 on 06/23/21) Code(s): M85.80 - Other specified disorders of bone density and structure, unspecified site Plan: Advised to repeat bone density (3) Hypercholesterolemia: Code(s): E78.00 - Pure hypercholesterolemia, unspecified Plan: Avoid fried foods, chicken skin, eggs, butter margarine, pastries and meat. Be it pork or beef they have a lot of cholesterol patient on simvastatin 5 mg once a day (4) GERD (gastroesophageal reflux disease): Code(s): K21.9 - Gastro-esophageal reflux disease without esophagitis Plan: Avoid the foods that causes that usually spicy foods, tomato products, juices, coffee, soda and foods that your sensitive to. After eating do not lie down, allow 3-4 hours before in lie down. And keep the head of bed above 30 degrees to avoid the acid from going up. (5) Urge incontinence: Code(s): N39.41 - Urge incontinence Plan: Timed voiding meaning every 1-2 hours even if you do not feel like urinating e mpty the bladder, avoid drinks with high sweet content like juices or caffeine that makes her urinate, 2 hours before you sleep hold liquids so that in the morning you do not get the bladder to be too full. (6) Dysphagia: Code(s): R13.10 - Dysphagia, unspecified (7) Neck pain: Code(s): M54.2 - Cervicalgia Orders: Orders XR cervical spine 2V Today M54.2 - Cervicalgia Influenza [id number] Immunization Today Z23 - Encounter for immunization XR DEXA axial skeleton Today M81.0 - Age-related osteoporosis without current pathological fracture, M85.80 - Other specified disorders of bone density and structure, unspecified site Referrals Allergy & Immunology Referral R13.10 - Dysphagia, unspecified Medications: Changed From omeprazole 20 mg PO DAILY 90 days 90 caps 3RF To omeprazole 20 mg PO DAILY PRN Refilled simvastatin 5 mg PO BEDTIME 90 tabs 3RF 90 days E78.00 - Pure hypercholest erolemia, unspecified Coding Level of Care Code Est Pt Prev Care >65y(22563) Diagnoses Annual physical exam Z00.00 Osteopenia M85.80 Hypercholesterolemia E78.00 GERD (gastroesophageal reflux disease) K21.9 Urge incontinence N39.41 Dysphagia R13.10 Neck pain M54.2
== END 2023-06-11 15:28 | disposition home or self-care (01) ==
PROVIDERS: Visit Provider Internal Medicine
DX: Z00.00 Encounter for general adult medical examination without abnormal findings (principal); M85.80 Other specified disorders of bone density and structure, unspecified site; E78.00 Pure hypercholesterolemia, unspecified; K21.9 Gastro-esophageal reflux disease without esophagitis; N39.41 Urge incontinence; R13.10 Dysphagia, unspecified; M54.2 Cervicalgia
CPT/HCPCS: 99397

== ENCOUNTER 2023-06-11 15:32 | Outpatient (REF) | payer MEDICARE, BC, SELFPAY ==
--- NOTE | ~2023-06-11 | XR_ITS ---
EXAMINATION: XR CERVICAL SPINE CLINICAL INFORMATION: Cervicalgia COMPARISON: None available. TECHNIQUE: 4 views of the cervical spine were obtained. FINDINGS: Mild anterolisthesis C4 on C5. Vertebral bodies and intervertebral discs are maintained in height. Odontoid is intact, posterior elements are aligned and no prevertebral soft tissue swelling is seen. Lung apices are clear. Soft tissues are unremarkable. XR/XR cervical spine 2V IMPRESSION: Mild anterolisthesis C4 on C5.
== END 2023-06-11 15:33 | disposition home or self-care (01) ==
LOC: HO.XRAY 15:32
PROVIDERS: PCP Internal Medicine; Visit Provider Internal Medicine
DX: M54.2 Cervicalgia (principal); M81.0 Age-related osteoporosis without current pathological fracture; M85.80 Other specified disorders of bone density and structure, unspecified site
CPT/HCPCS: 72040

== ENCOUNTER 2023-07-19 14:33 | Outpatient (REF) | payer MEDICARE, BC, SELFPAY ==
--- NOTE | ~2023-07-19 | MM_ITS ---
EXAMINATION: BONE DENSITOMETRY CLINICAL INDICATION: Osteopenia. COMPARISON: Previous BD dated 06/23/2021 and baseline BD dated 05/04/2015. TECHNIQUE: Using a [employer] DXA System (software version: 13.1) manufactured by [employer], dual-energy x-ray absorptiometry was performed of the lumbar spine and left hip. The images are of good technical quality. Summary results are attached. FINDINGS: LEFT FEMUR, NECK: Current: BMD 0.754 g/cm2, Z-score -0.2, T-score -2.0, osteopenia. Prior: BMD 0.746 g/cm2. Baseline: BMD 0.780 g/cm2. LEFT FEMUR, TOTAL: Current: BMD 0.797 g/cm2, Z-score 0.0, T-score -1.7, osteopenia, 2.6% decrease from previous, 1.5% increase from baseline (<5% change is not significant). Prior: BMD 0.818 g/cm2. Baseline: BMD 0.785 g/cm2. AP SPINE L1-L4: Current: BMD 0.946 g/cm2, Z-score 0.1, T-score -2.0, osteopenia, 1.6% decrease from previous, 0.6% increase from baseline (<5% change is not significant). Prior: BMD 0.961 g/cm2. Baseline: BMD 0.940 g/cm2. IDENTIFIED RISK FACTORS: Menopause. HISTORY OF FRACTURE: None listed. MEDICATIONS: Calcium or multivitamin. Vitamin D. MM/XR DEXA axial skeleton IMPRESSION: 1. DIAGNOSIS: Osteopenia based on the lowest T-score value of -2.0 in the lumbar spine and femur neck applying World Health Organization criteria. 2. 10-YEAR FRACTURE RISK PREDICTION, FRAX: Major osteoporotic fracture (clinical spine, forearm, hip or shoulder) 10.1%. Hip fracture 2.0%. 3. Treatment Recommendations: NOF guidelines recommend consideration for treatment in postmenopausal women and men age 50 and older presenting with the following: -A hip or vertebral (clinical or morphometric) fracture. -T-score less than or equal to -2.5 at the femoral neck or spine after appropriate evaluation to exclude secondary causes. -Low bone mass at the hip or spine and a 10-year fracture probability by FRAX of greater than or equal to 3% for hip fracture or greater than or equal to 20% for major osteoporotic fracture based on the [place] adapted WHO algorithm. 4. Other Recommendations: All treatment decisions require clinical judgment and consideration of individual patient factors, including patient preferences, comorbidities, previous drug use, risk factors not captured in the FRAX model (e.g. frailty, falls, vitamin D deficiency, increased bone turnover, interval significant decline in bone density) and possible under or overestimation of fracture risk by FRAX. Additional medical evaluation for secondary cause of low bone mineral density may be appropriate. FUTURE SCAN RECOMMENDATION: People with diagnosed cases of osteoporosis or at high risk for fracture should have regular bone mineral density tests. For patients eligible for Medicare, routine testing is allowed once every 2 years. The testing frequency can be increased to one year for patients who have rapidly progressing disease, those who are receiving or discontinuing medical therapy to restore bone mass, or have additional risk factors.
== END 2023-07-19 14:34 | disposition home or self-care (01) ==
LOC: HO.MAMMO 14:33
PROVIDERS: PCP Internal Medicine; Visit Provider Internal Medicine
DX: Z13.820 Encounter for screening for osteoporosis (principal); Z78.0 Asymptomatic menopausal state; M81.0 Age-related osteoporosis without current pathological fracture; M85.80 Other specified disorders of bone density and structure, unspecified site
CPT/HCPCS: 77080

== ENCOUNTER 2024-06-10 08:02 | Outpatient (REF) | payer MEDICARE, BC, SELFPAY ==
[2024-06-10 11:12] LABS: Appearance Urine Clear; Color Urine Yellow; Glucose Urine UA Negative (Negative); Leukocyte Esterase Urine Negative (Negative); Nitrite Urine Negative (Negative); Specific Gravity - Urine 1.015 (1.005-1.025); Urine Blood Negative (Negative); Urine Ketones Negative (Negative); Urine Protein Negative (Neg-Trace)
[2024-06-10 11:29] LABS: Alanine Aminotransferase 42 U/L (0-31); Albumin Level 4.4 g/dL (3.5-5.0); Alkaline Phosphatase 82 U/L (39-117); Anion Gap 12 (12-20); Aspartate Amino Transferase 38 U/L (5-31); Bilirubin Total 0.5 mg/dL (0.0-1.0); Blood Urea Nitrogen 21 mg/dL (9-16); Calcium 10.1 mg/dL (8.4-10.2); Carbon Dioxide 27 mmol/L (22-29); Chloride 107 mmol/L (96-108); Cholesterol 204 mg/dL (<200); Estimated Glomerular Filt Rate > 60; Glucose Random 88 mg/dL (60-115); HDL Cholesterol 57 mg/dL (>40); LDL Cholesterol Calculated 133 mg/dL (<100); Sodium 142 mmol/L (135-145); Total Protein 7.1 g/dL (6.5-8.0); Triglycerides 74 mg/dL (<150)
[2024-06-10 11:50] LABS: Free T4 (Free Thyroxine) 0.79 ng/dL (0.71-1.85); Vitamin D 25-OH Total 90.2 ng/mL (>30)
[2024-06-10 11:57] LABS: Folate > 20.0 ng/mL (> or = 4.0); Vitamin B12 890 pg/mL (200-900)
[2024-06-10 14:21] LABS: MANUAL DIFF FLAG NO
[2024-06-10 14:33] LABS: Basophils Absolute Auto 0.1 X10*3/uL (0.0-0.2); Basophils Percent Auto 1.5 % (0-2); Eosinophils Absolute Auto 0.1 X10*3/uL (0.0-0.4); Eosinophils Percent Auto 3.4 % (0-4); Hematocrit 42.2 % (37.0-47.0); Hemoglobin 13.8 g/dl (12.0-16.0); Imm Gran Abs Auto 0.01 X10*3/uL (0.00-0.03); Imm Gran Pct Auto 0.2 % (0.0-0.4); Lymphocytes Absolute Auto 1.4 X10*3/uL (1.2-4.9); Lymphocytes Percent Auto 34.1 % (20-40); Mean Corpuscular HGB Conc 32.7 g/dl (31.0-35.0); Mean Corpuscular Hemoglobin 29.9 pg (27.0-33.0); Mean Corpuscular Volume 91.5 fL (80.0-98.0); Mean Platelet Volume 9.4 fL (9.4-12.3); Monocytes Absolute Auto 0.4 X10*3/uL (0.1-1.2); Monocytes Percent Auto 9.1 % (2-11); Neutrophils Absolute Auto 2.1 x10*3/uL (2.0-8.3); Neutrophils Percent Auto 51.7 % (45-73); Platelet Count 259 X10*3/uL (160-400); Red Blood Count 4.61 X10*6/uL (4.20-5.50); Red Cell Distribution Width 12.3 % (11.0-16.0); White Blood Count 4.1 X10*3/uL (4.8-10.8)
== END 2024-06-10 08:03 | disposition home or self-care (01) ==
LOC: HO.WFDLDS 08:02
PROVIDERS: Visit Provider Internal Medicine
DX: E78.00 Pure hypercholesterolemia, unspecified (principal); R30.0 Dysuria
CPT/HCPCS: 36415; 80053; 80061; 81003; 82306; 82607; 82746; 84439; 84443; 85025

== ENCOUNTER 2024-06-24 14:49 | Outpatient (AMB) | payer MEDICARE, BC, SELFPAY ==
[2024-06-24 15:03] VITALS: BP 130/78; PULSE 60; O2SAT 99; BMI 19.9
--- NOTE | 2024-06-24 15:03 | MHC.PC.OV ---
Vital Signs 06/24/24 15:03 Height 5 ft 4 in Weight 116 lb BMI 19.9 BP 130/78 Blood Pressure Location Lt brachial Position Sitting Pulse 60 Pulse Source Pulse Oximeter Pulse Oximetry (%) 99 Oxygen Delivery Method Room Air Intake Visit Reasons: pe Filter Washer And Presser Required: No Accompanied by: Self / Same As Patient Allergies No Known Allergies Allergy (Verified 06/24/24 15:05) seasonal Allergy (Unknown, Uncoded 06/24/24 15:05) Itchy Eyes Medication List - Last Reconciled 06/24/24 by Ida Campa MD ascorbate calcium (vitamin C) 500 mg PO DAILY C,E,zinc,copper 78-bzvyt9s-jah 250-5-1 mg (Ocuvite Adult 50 Plus) 1 cap PO DAILY calcium carb,lactat-vitamin D3 200 mg-6.25 mcg (250 unit) 2 tabs PO DAILY cetirizine 10 mg PO DAILY PRN clobetasol 0.05% 1 appl topical BEDTIME flaxseed oil 1,000 mg PO BID fluticasone propionate 50 mcg/actuation 2 sprays intranasal DAILY ybfmuocd-ynq-wupuk-coj474-bhyf 500-500-66.7 mg (Hsotdrfcthx-Tuopfyjjfdq-JBH (with antiox)) tabs PO mometasone 0.1% 1 appl topical DAILY oxybutynin chloride ER 10 mg PO DAILY psyllium husk (Fiber (psyllium husk)) 0.4 grams PO BEDTIME simvastatin 5 mg PO BEDTIME 90 days triamcinolone acetonide 0.1% 1 appl topical BID Tobacco use date assessed: 06/24/24 Fall risk assessment: No Falls in past year Last assessed Fall Risk: 06/24/24 Dental Screening Dental Screen Date: 06/24/24 Did you have a dental visit in the last 12 months?: Yes Did you have a dental problem in the last 6 months where you did not have access to dental care?: No Was dental information given to patient?: Patient has dentist HPI pe HPI Details 68-year-old female with a history of osteopenia hypercholesterolemia GERD urge incontinence coming in for physical exam last seen in June 2023. Patient is colon test was done in 2020 5 years bone density up-to-date July 2023 mammogram is up-to-date 05/30/2024 review of the notes has been following up with Urology seen in February 21 on oxybutynin ER 10 mg once a day. Patient also follows up with Allergy and immunology allergic rhinitis Declan Haider. [facility] Medical History (Updated 06/24/24 @ 15:46 by Ida Campa MD) Urinary incontinence, mixed History of COVID-19 Vitamin D deficiency Otosclerosis Peptic ulcer disease Allergic rhinitis Cholelithiasis Thyroid nodule Tubular adenoma of colon (~2006) Hypercholesterolemia Surgical History History of eye surgery History of colonoscopy Family History Father Colorectal cancer Mother Colorectal cancer Social History Housing: House Alcohol intake: never Patient Tobacco Use Status: Former Tobacco user Tobacco use type: Cigarette Years Smoked: stopped 12/1986 e-Cigarette/Vaping Use: Never Used Second Hand Smoke Exposure: No Advance Directives Date on File: 06/16/20 service: No Current occupational status: employed Cognitive needs: No Hearing needs: No Vision needs: Yes Questionnaire PHQ-9 Over the last 2 weeks, how often have you been bothered by any of the following problems? 1. Little interest or pleasure in doing things: not at all 2. Feeling down, depressed, or hopeless: not at all 3. Trouble falling or staying asleep, or sleeping too much: not at all 4. Feeling tired or having little energy: not at all 5. Poor appetite or overeating: not at all 6. Feeling bad about yourself - or that you are a failure or have let yourself or your family down: not at all 7. Trouble concentrating on things, such as reading the newspaper or watching television: not at all 8. Moving or speaking so slowly that other people could have noticed. Or the opposite - being so fidgety or restless that you have been moving around a lot more than usual: not at all 9. Thoughts that you would be better off or of hurting yourself in some way: not at all Total score: 0 Source: Developed by Drs. Wally Agustin, Lenore Garrison, Lee Limon and colleagues, with an educational jose carlos from [employer]. Thrive Questionnaire Date Thrive assessed: 06/17/24 I am a: Patient What is your living situation today?: I have a steady place to live Within the past 12 months, did the food you bought not last and you didn't have the money to get more?: Never true Within the past 12 months, did you worry whether your food would run out before you got money to buy more?: Never true Do you have trouble paying for medicines?: No Do you have trouble getting transportation to medical appointments?: No Do you have trouble paying your heating and electricity bill?: No Do you have trouble taking care of your child, family member or friend?: No Do you have trouble with day-to-day activities such as bathing, preparing meals, shopping, managing finances, etc.?: No Are you currently unemployed and looking for a job?: No Are you interested in more education?: No Please select the resources that you would like help with: None Currently or been in a relationship where the following occur: No concerns reported THRIVE Score: 0 AUDIT C Alcohol Use Questionnaire (AUDIT-C) 1. How often do you have a drink containing alcohol?: Never Total Score: 0 LANA-7 AMB Questionnaire LANA-7 Date LANA - 7 assessed: 06/24/24 Feeling nervous, anxious, or on edge: 0 = Not at all Not being able to stop or control worryin = Not at all Worrying too much about different things: 0 = Not at all Trouble relaxin = Not at all Being so restless that it is hard to sit still: 0 = Not at all Becoming easily annoyed or irritable: 0 = Not at all Feeling afraid as if something awful might happen: 0 = Not at all Total LANA-7 score (0-4 normal; 5-9 mild; 10-14 moderate; 15-21 severe): 0 Source: Developed by Drs. Wally Agustin, Lenore Garrison, Lee Limon and colleagues, with an educational jose carlos from [employer]. Review of Systems Const Denies poor appetite and Denies weakness Eyes Denies no additional complaints ENT Reports Normal hearing present, Denies dizziness, Denies nasal congestion, Denies tinnitus and Denies sore throat Card Denies chest pain, Denies syncope, Denies rapid heart rate and Denies dyspnea Resp Denies cough and Denies dyspnea GI Denies change in stool character, Reports constipation, Denies diarrhea, Denies nausea and Denies vomiting Denies urinary frequency, Denies difficulty voiding and Denies dysuria Neuro Reports Normal hearing present, Denies confusion, Denies dizziness, Denies syncope and Denies weakness Psych Denies confusion Physical exam (Primary Care) Vital Signs: Last Vital Signs Pulse 60 06/24/24 15:03 BP 130/78 06/24/24 15:03 Pulse Ox 99 06/24/24 15:03 Oxygen Delivery Method Room Air 06/24/24 15:03 BMI result Body Mass Index 19.9 Tobacco/Smoking Status: Tobacco use Status Tobacco use date assessed 06/24/24 06/24/24 15:08 Patient Tobacco Use Status Former Tobacco user 06/24/24 15:08 Tobacco use type Cigarette 06/24/24 15:08 e-Cigarette/Vaping Use Never Used 06/24/24 15:08 PHQ-9: PHQ-9 Score PHQ-9: Total score 0 06/24/24 15:08 Thrive Assessment: Date of Thrive Assessment Date Thrive assessed 06/17/24 06/24/24 15:08 Currently or been in a relationship where the following occur: No concerns reported Const General: No confusion Orientation/consciousness: No confusion HENMT Head: Yes normocephalic Ears: external ears normal and TM's normal bilaterally Face and sinus: Yes normal facial exam Mouth: moist mucous membranes Throat: Yes tonsils normal Eyes Conjunctivae: conjunctivae normal Pupils: Equal, round and reactive pupils present and Pupil accommodation reflex normal Direct Ophthalmoscopy: normal light reflex Neck Neck: No lymphadenopathy Thyroid: Thyroid normal Chest Chest palpation & inspection: normal inspection of the chest Resp Effort & Inspection: normal respiratory effort and no audible wheezes Auscultation: clear to auscultation bilaterally, no crackles, no wheezes and lung sounds not diminished Cardio Rate: regular rate Rhythm: regular rhythm Peripheral pulses: radial pulses present and dorsalis pedis present GI Palpation (GI): no masses Auscultation: normal bowel sounds and normoactive bowel sounds Rectal Exam - Female: deferred Skin General skin exam: no rashes or lesions noted Rashes: no rashes Neuro General: No confusion Cranial nerves: Yes Equal, round and reactive pupils present and Yes Normal hearing present Cognition (Neuro): normal cognition Gait exam (Neuro): Normal gait present Motor exam (neuro): 5/5 motor strength present throughout Deep tendon reflexes (DTR's): Right brachioradialis reflex intensity grade: 2+, Left brachioradialis reflex intensity grade: 2+, Right patellar reflex intensity grade: 2+ and Left patellar reflex intensity grade: 2+ Extrem General: No edema Coding Level of Care Code Est Pt Prev Care >65y(66965) Diagnoses Annual physical exam Z00.00 Gastroesophageal reflux disease without esophagitis K21.9 Esophagitis presence: without esophagitis Hypercholesterolemia E78.00 Urinary incontinence, mixed N39.46 Allergic rhinitis J30.9 Assessment & Plan Assessment & Plan (1) Annual physical exam: Code(s): Z00.00 - Encounter for general adult medical examination without abnormal findings Category: Medical Plan: Patient is advised to eat healthy, keep well hydrated, keep active and have adequate sleep. (2) GERD (gastroesophageal reflux disease): Code(s): K21.9 - Gastro-esophageal reflux disease without esophagitis Category: Medical Qualifiers: Esophagitis presence: without esophagitis Qualified Code(s): K21.9 - Gastro-esophageal reflux disease without esophagitis Plan: Avoid the foods that causes that usually spicy foods, tomato products, juices, coffee, soda and foods that your sensitive to. After eating do not lie down, allow 3-4 hours before in lie down. And keep the head of bed above 30 degrees to avoid the acid from going up. (3) Hypercholesterolemia: Code(s): E78.00 - Pure hypercholesterolemia, unspecified Category: Medical Plan: Avoid fried foods, chicken skin, eggs, butter margarine, pastries and meat. Be it pork or beef they have a lot of cholesterol LDL goal of less than 130 and triglyceride of less than 150 on simvastatin 5 mg at bedtime (4) Urinary incontinence, mixed: Comment: (known to [facility]) Code(s): N39.46 - Mixed incontinence Category: Medical Plan: Patient follows up with urology and has been placed on oxybutynin ER 10 mg once a day (5) Allergic rhinitis: Code(s): J30.9 - Allergic rhinitis, unspecified Category: Medical Plan: Patient follows up with Allergy and immunology on Zyrtec Medications: Refilled fluticasone propionate 50 mcg/actuation 2 sprays intranasal DAILY 3 ea 3RF simvastatin 5 mg PO BEDTIME 90 days 90 tabs 3RF E78.00 - Pure hypercholesterolemia, unspecified
== END 2024-06-24 16:08 | disposition home or self-care (01) ==
PROVIDERS: PCP Internal Medicine; Visit Provider Internal Medicine
DX: Z00.00 Encounter for general adult medical examination without abnormal findings (principal); K21.9 Gastro-esophageal reflux disease without esophagitis; E78.00 Pure hypercholesterolemia, unspecified; N39.46 Mixed incontinence; J30.9 Allergic rhinitis, unspecified

== ENCOUNTER → 2024-06-24 14:49 | Outpatient (BNVA) | payer MEDICARE, BC, SELFPAY | PROVIDERS: PCP Internal Medicine; Visit Provider Internal Medicine | DX: Z00.01 Encounter for general adult medical examination with abnormal findings (principal); K21.9 Gastro-esophageal reflux disease without esophagitis; E78.00 Pure hypercholesterolemia, unspecified; J30.9 Allergic rhinitis, unspecified | CPT/HCPCS: 96127; 99397 ==

== ENCOUNTER 2024-10-31 07:44 | Day surgery (SDC) | payer MEDICARE, BC, SELFPAY ==
[2024-10-29 12:22] VITALS: BMI 19.9
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
--- OUTSIDE RECORDS SUMMARY | 2024-10-29 15:23 | XMS_ITS ---
Author Organization [facility] Address [address] [place] [phone] Care Team Providers Care Transportation Modeler Name Role Phone Ida Campa MD Primary Care Provider Fabricio Sutherland Jr Unavailable [phone] ALLERGIES Allergen (clinical drug ingredient) Drug/Non Drug Allergy documented on EMR Reaction Allergy Type Onset Date Status trees,grass (uncoded) Unknown Allergy Active REASON FOR VISIT Patient presents today for can't swallow foods MEDICATIONS Medication SIG (Take, Route, Frequency, Duration) Notes Start Date End Date Status Fiber Orally once a day Ac tive Vitamin C 1000 MG 1 tablet Orally Once a day Active Mupirocin 2 % 1 application Operations Officer Afloat ally as needed Active Mometasone Furoate 0.1 % Externally as needed Active MiraLax (colon prep) 8.3 ounce ((238) grams mixed with Gatorade or Crystal Light orally begin at 5:00 p.m. the day before the procedure for 1 day 01/27/2021 Active Glucosamine 1500 1 tablet with meals Orally Once a day Active Simvastatin 5 MG TAKE 1 TABLET BY MARCOS TH EVERY DAY IN THE EVENING Oral for 90 Active ZyrTEC 10 MG 1 tablet Orally Once a day for 30 day(s) Active Multi Vitamin/Minerals Orally Active oxyBUTYnin Chloride 5 MG 1 tablet Orally Twice a day Active Ocuvite Orally Active Flax Seed Oil 1000 MG as directed Orally twice a day Active Calcium + D 3 1 tablet Orally once a day Active Triamcinolone Acet-Pentoxifyll 0.1-0.5 % as directed Externally Active Clobetasol Prop Emollient Base 0.05 % 1 application Externally Twice a day for 10 day(s) Active Flonase 50 MCG/ACT 1 spray in each nost ril Nasally Once or twice a day Active Tacrolimus 0.1 % 1 application Operations Officer Afloat ally Once a day Active PROBLEMS Problem Type ICD Code Onset Dates Problem Status W/U Status Risk SNOMED Code Notes Problem Other dysphagia (R13.19) Active confirmed 24936949 VITAL SIGNS BMI 19.94 kg/m2 09/18/2024 Blood pressure systolic 00 mm Hg 09/18/19 25 Blood pressure diastolic 00 mm Hg 025 Height 64.5 in 09/18/2024 Weight 118 lbs 09/18/2024 Encounters Encounter Location Date Provider Diagnosis [facility] [address] [place] [address] 09/18/2024 Fabricio Sandoval Jr Other dysphagia R13.19 ASSESSMENTS Encounter Date Diagnosis Assessment Notes Treatment Notes Treatment Clinical Notes 09/18/2024 Other dysphagia (ICD-10 - R13.19) Swallowing problems material was printed PLAN OF TREATMENT Treatment Notes Assessment Notes Other dysphagia Swallowing problems material was printed Future Test Test Name Order Date UPPER GI ENDOSCOPY 09/18/2024 Next Appt Details Follow Up: 1 Year, Reason: Provider Name:Fabricio jackson Jr, 10/31/2024 09:00:00 AM, [address] [place] [address] , [place], [place], [phone], Progress Notes * Examination Category Sub-Category Detail Notes General Examination GENERAL APPEARANCE: in no ac tyler distress HEAD: normocephalic EYES: sclera non-icteric NECK/THYROID: no lymphadenopathy HEART: S1, S2 normal, no mu rmurs CHEST: normal shape and exp ansion LUNGS: clear to auscultatio n bilaterally ABDOMEN: soft, nontender, non distended, bowel sounds present, no organomegaly SKIN: anicteric EXTREMITIES: no clubbing, cyanosi s, or edema PSYCH: cognitive function i ntact ORAL CAVITY: mucosa moist
--- OUTSIDE RECORDS SUMMARY | 2024-10-29 15:23 | XMS_ITS ---
Author Organization [facility] Address [address] [place] [phone] Care Team Providers Care Cargo Broker Name Role Phone Ida Campa MD Primary Care Provider Fabricio Sutherland Jr REASON FOR VISIT food not going down Encounters Encounter Location Date Provider Diagnosis [facility] [address] [place] [phone] 09/12/2024 Fabricio Sandoval Jr PLAN OF TREATMENT Next Appt Details Provider Name:Fabricio jackson Jr, 10/31/2024 09:00:00 AM, [address] [place] [address] , [place], [place], [phone],
[2024-10-31 07:54] VITALS: BP 136/74; PULSE 61; RESP 20; TEMP 36.4; O2SAT 98
[2024-10-31] MEDS: Lactated Ringers 1,000 ML 50 ML IVCONT (08:18)
--- NOTE | 2024-10-31 08:29 | HO.ANESPROP2 ---
[facility] Active Problems Active Problems: All Active Problems Annual physical exam (Acute) COVID-19 virus infection (Acute) Neck pain (Acute) Urge incontinence (Acute) Mass of upper lobe of right lung (Acute) Lung density on x-ray (Acute) Abnormal lung sounds (Acute) Dysphagia (Acute) TSH (thyroid-stimulating hormone deficiency) (Acute) LFT elevation (Acute) GERD (gastroesophageal reflux disease) (Acute) Osteopenia (Acute ~2015) Allergic rhinitis (Acute) Hypercholesterolemia (Acute) Thyroid nodule (Acute) Urinary incontinence, mixed (Acute) Past Medical History Medical History Pulmonary nodule Osteopenia GERD (gastroesophageal reflux disease) Urinary incontinence, mixed History of COVID-19 Vitamin D deficiency Otosclerosis Peptic ulcer disease Allergic rhinitis Cholelithiasis Thyroid nodule Tubular adenoma of colon (~2006) Hypercholesterolemia Family History Family History Father Colorectal cancer Mother Colorectal cancer Family history of problems with anesthesia: No Surgical History Surgical History History of eye surgery History of colonoscopy History of Problems with Anesthesia: Yes (PONV ?after conscious sedation) Social History Social History Housing: House Alcohol intake: never Patient Tobacco Use Status: Former Tobacco user Tobacco use type: Cigarette Years Smoked: stopped 12/1986 e-Cigarette/Vaping Use: Never Used Second Hand Smoke Exposure: No Have you been hit, kicked, punched, or otherwise hurt by someone within the past year? If so, by whom?: No Are you DNR?: No Advance Directives: No Advance Directives Information Provided: Yes Advance Directives Date on File: 06/16/20 service: No Current occupational status: employed Cognitive needs: No Hearing needs: No Vision needs: Yes Meds Allergies Allergy/AdvReac Type Severity Reaction Status Date / Time Seasonal Allergies Allergy Intermediate Itchy Eyes Verified 10/29/24 12:16 Active Medications: Current Medications Lactated Ringer's (Lr) 1,000 mls @ 50 mls/hr IVCONT .Q20H DAREK Last Admin: 10/31/24 08:18 Dose: 50 mls/hr Home Medications ?Medication ?Instructions ?Recorded ?Confirmed ?Last Taken ?Type flaxseed oil 1,000 mg capsule 1,000 mg PO BID 02/25/21 10/29/24 10/23/24 History ascorbate calcium (vitamin C) 500 500 mg PO DAILY 05/11/21 10/29/24 Unknown History mg tablet calcium carb and lactate 200 2 tab PO DAILY 05/11/21 10/29/24 Unknown History mg-vitamin D3 6.25 mcg (250 unit) tablet cetirizine 10 mg tablet 10 mg PO DAILY PRN Allergy Symptoms 05/11/21 10/29/24 Unknown History clobetasol 0.05 % topical ointment 1 appl topical BEDTIME 05/11/21 10/29/24 Unknown History agzqgavtroc-yqv-aisqzbdwh-hrb 2 tab PO DAILY 05/11/21 10/29/24 Unknown History 149-hyalur 500 mg-500 mg-66.7 mg tablet (Ypdgfhaldez-Ukhasidffjk-GZO (with antiox)) mometasone 0.1 % topical cream 1 appl topical DAILY 05/11/21 10/29/24 Unknown History psyllium husk 0.4 gram capsule 0.4 g PO BEDTIME 05/11/21 10/29/24 Unknown History (Fiber (psyllium husk)) vit C,E,zinc,copper-lfzbn2q 250 1 cap PO DAILY 05/11/21 10/29/24 Unknown History mg-lutein 5 mg-zeaxanthin 1 mg capsule (Ocuvite Adult 50 Plus) triamcinolone acetonide 0.1 % 1 appl topical BID 06/09/22 10/29/24 Unknown History topical ointment oxybutynin chloride 5 mg 10 mg PO DAILY 06/24/24 10/29/24 Unknown History tablet,extended release 24 hr Exam Height,Weight and Vital Signs: Height 5 ft 4.5 in Weight 53.8 kg Last Vital Signs Temp 97.5 F 10/31/24 07:54 Pulse 61 10/31/24 07:54 Resp 20 10/31/24 07:54 BP 136/74 10/31/24 07:54 Pulse Ox 98 10/31/24 07:54 O2 Del Method Room Air 10/31/24 07:54 Airway Mallampati Class: III TM Dist: >3cm Neck ROM: Full Loose/Missing/Broken Teeth: No Heart: RRR Lungs: CTA Assessment and Plan Assessment Anesthesia Assessment: Anesthesia Plan Discussed and Chart Reviewed Final Anesthetic Review Family History of Problems with Anesthesia: No History of Problems with Anesthesia: Yes (PONV ?after conscious sedation) NPO: Yes ASA Class: II Final Preanesthetic Review: Meds/Allgs Chart Reviewed, Consent Obtained/Reviewed and Anes Risks/Benef Reviewed Patient Risk: Low Procedure Risk: Intermediate Anesthetic Plan Anesthetic Plan: MAC: Disposition: Standard PACU
--- NOTE | 2024-10-31 08:42 | MHC.SHP ---
Pre-Procedural Eval Section A - 24 Hr Update-Section A only Date of Service: 10/31/24 Section B - Complete if H&P > 30 days Chief Complaint: Other dysphagia Details of Present Illness: see H&P no changes Relevant Family History (Specify if Yes): No Relevant Social History: None Present Medications: see Short Stay Collaborative assessment Medical History: No relevant PMH History of Previous Operations: No relevant previous surgery Allergies: Allergies Allergy/AdvReac Type Severity Reaction Status Date / Time Seasonal Allergies Allergy Intermediate Itchy Eyes Verified 10/29/24 12:16 Review of Systems Sugical H&P ROS: Negative: Constitution, Cardiovascular, Respiratory, Neurological, Psychiatric, Hem-Onc, Allergic/Immunologic, Gastrointestinal, Genitourinary, Musculoskeletal, Integumentary, Endocrine and Eyes/Ears/Nose/Throat Exam Surgical H&P Exam: Normal: HEENT, Normal: Heart, Normal: Lungs, Normal: Extremities, Normal: Abdomen, Normal: Skin and Normal: Neurological Plan Diagnosis/Plan: Unchanged I have reviewed the history and physical and performed a pertinent physical examination on my patient. No changes have occurred unless specified. Time Spent With Patient Time: Total time managing care of this patient today ____ minutes.
--- NOTE | 2024-10-31 09:22 | PM.OP ---
Brief Operative Note Date of Service: 10/31/24 Pre-op diagnosis: dysphagia Post-op diagnosis: same Procedure: egd Surgeon: Fabricio Sandoval MD Anesthesia: MAC Was an Finish Painter used for this Procedure?: No Estimated blood loss (mL): 5 Pathology: other Condition: stable Disposition: PACU
[2024-10-31 09:27] VITALS: BP 98/56; PULSE 63; RESP 18; TEMP 36.4; O2SAT 99
[2024-10-31 09:46] VITALS: BP 118/67; PULSE 58; RESP 18; TEMP 36.1; O2SAT 96
[2024-10-31] MEDS: Haloperidol Lactate 5 MG/ML VIAL 1 MG IVPUSH (09:51)
[2024-10-31] MEDS: Scopolamine 1.5 MG PATCH.TD.3 EAR-BEHIND (09:52)
--- NOTE | 2024-10-31 09:57 | OP_ITS ---
DATE OF SERVICE: 10/31/2024 SURGEON: Fabricio Sandoval MD INDICATIONS: Dysphagia. PREOPERATIVE DIAGNOSIS: POSTOPERATIVE DIAGNOSIS: PROCEDURE PERFORMED: Upper endoscopy with balloon dilation and biopsy. ESTIMATED BLOOD LOSS: COMPLICATIONS: ANESTHESIA: Monitored anesthesia care. ASSISTANTS: SPECIMENS: DESCRIPTION OF PROCEDURE: A history and physical was performed. The risks and benefits of the procedure were explained to the patient, and informed consent was obtained. The patient was placed in the left lateral decubitus position. The Olympus video gastroscope was introduced into the esophagus, stomach, and duodenum. Examination was performed. The scope was removed. She tolerated the procedure well and was returned to the recovery area in stable condition. FINDINGS: Esophagus: The esophagus was remarkable for a nonobstructive Schatzki ring at about 34 cm. There was no esophagitis. Stomach: Stomach showed no evidence of masses, ulcers, or polyps. Duodenum: The bulb and 2nd portion were normal. Balloon dilation of the Schatzki ring and LES were performed for 60 seconds and inflations of 18 and 20 mm with some mucosal disruption consistent with successful dilation. There was no excessive bleeding or significant laceration. Biopsies were obtained from the EG junction and at 30 cm. Biopsies were also obtained from the antrum of the stomach. IMPRESSION: Schatzki ring, dysphagia. RECOMMENDATION: Follow up the biopsy results. MD JEREMY Pendleton/ARIA / [phone]
[2024-10-31 10:01] VITALS: BP 112/60; PULSE 63; RESP 16; O2SAT 99
--- NOTE | 2024-10-31 10:39 | PC.NURSE ---
Patient aware of all medications and scopolamine patch given in pacu and has education sheets regarding all. patient vomited x 1 in discharge after ride from pacu. Stayed in discharge and stated was feeling so much better after vomiting. pallor wnl. patient stated felt well to go home. okay to car via w/c.
== END 2024-10-31 10:41 | disposition home or self-care (01) ==
PROVIDERS: PCP Internal Medicine; Visit Provider Internal Medicine Gastroenterology
PROC: 0DJ08ZZ Inspection of Upper Intestinal Tract, Via Natural or Artificial Opening Endoscopic (ICD-10-PCS; CPT 43235; principal; 2024-10-31 09:00)
DX: R13.19 Other dysphagia (principal); K22.2 Esophageal obstruction; K22.70 Barrett's esophagus without dysplasia; K20.80 Other esophagitis without bleeding; K29.50 Unspecified chronic gastritis without bleeding; Z87.11 Personal history of peptic ulcer disease; Z80.0 Family history of malignant neoplasm of digestive organs; E78.5 Hyperlipidemia, unspecified; J30.2 Other seasonal allergic rhinitis; N32.81 Overactive bladder; Z98.890 Other specified postprocedural states; Z79.51 Long term (current) use of inhaled steroids; Z79.899 Other long term (current) drug therapy; Z87.891 Personal history of nicotine dependence
CPT/HCPCS: 43249; 43239; 88305; 88313; 88342; C1726; J1630; J2003; J2405; J2704

== ENCOUNTER 2024-11-26 08:36 | Outpatient (AMB) | payer MEDICARE, BC, SELFPAY ==
--- NOTE | 2024-11-26 08:45 | AM.OFFWIN_ITS ---
Intake Vital Signs 11/26/24 08:48 Height 5 ft 4.5 in Weight 120 lb 2 oz BMI 20.3 BP 124/72 Blood Pressure Location Rt brachial Position Sitting Respiration 13 Pulse 93 Pulse Source Pulse Oximeter Temp 98.2 F Temp Source Oral Pulse Oximetry (%) 99 Oxygen Delivery Method Simple Mask Intake Visit Reasons: est/congestion/cough Intake Note: Patient complaining of cough and chest congestion x 6days. Patient also tested negative for covid at home this morning. Patient Tobacco Use Status: Former Tobacco user Allergies Seasonal Allergies Allergy (Intermediate, Verified 11/26/24 09:07) Itchy Eyes Medication List - Last Reconciled 11/26/24 by Homa Gauthier, ELECT[employer]IC [employer] WELDER-BC ascorbate calcium (vitamin C) 500 mg PO DAILY C,E,zinc,copper 85-joqto5v-qfg 250-5-1 mg (Ocuvite Adult 50 Plus) 1 cap PO DAILY calcium carb,lactat-vitamin D3 200 mg-6.25 mcg (250 unit) 2 tabs PO DAILY cetirizine 10 mg PO DAILY PRN clobetasol 0.05% 1 appl topical BEDTIME flaxseed oil 1,000 mg PO BID fluticasone propionate 50 mcg/actuation 2 sprays intranasal DAILY lwsrjgat-jgn-aqjqk-gzf898-mqkw 500-500-66.7 mg (Nmuwqryymwi-Sfwsxwfylqj-KMD (with antiox)) 2 tabs PO DAILY mometasone 0.1% 1 appl topical DAILY omeprazole 20 mg PO DAILY oxybutynin chloride ER 10 mg PO DAILY psyllium husk (Fiber (psyllium husk)) 0.4 grams PO BEDTIME simvastatin 5 mg PO BEDTIME 90 days triamcinolone acetonide 0.1% 1 appl topical BID Do you need a note to return to daycare/school/sports/work: No HPI HPI Comments History of Present Illness Details History - The patient is a 69-year-old female pr esenting with cough and chest congestion. - Symptoms of cough and chest congestion have been ongoing for approximately 6 days. - She confirmed testing negative for COV ID-19 on the day of the visit. - The patient denied experiencing fever, chills, or ear pain. - + seasonal allergies and confirmed rec eiving this season's influenza vaccination. - Prior attempts at symptom management i ncluded various cough medications, which provided no relief. 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 - takes flonase and zyrtec QD Exam: Awake alert NAD Sclera and conjunctiva clear bilat Nares with white d/c bilat, turbinates pale, no sinus tenderness with palpation bilat TM intact bilat with clouding MMM, pharynx WNL + PND RRR LS CTAB, dry cough noted occassionally during exam w/o distress Results - CT of the chest in 2022: Interval reso lution of a nodular density in the right upper lobe. Discussion Notes I discussed with the patient that her cough and chest congestion are likely due to postnasal drip. Her lungs are clear, suggesting the cough originates from upper airway irritation. I explained the potential use of Xyzal instead of Zyrtec due to her body's adaptation to the current antihistamine. I advised on the added use of Flonase to manage inflammation and introduced ipratropium as a nasal drying agent to help reduce secretions. We talked about increasing Zyrtec to twice a day as another option if the Xyzal is not covered by her insurance. Additionally, the benefits of saltwater gargles to help clear throat secretions were discussed. I advised seeking further assessment should she develop a fever or her symptoms worsen. Xyzal prescription attempts will be processed through [facility], and a refill for the nasal spray has been provided. Assessment and Plan 1. Cough due to postnasal drip: The safia ent's symptoms suggest postnasal drip, identified as the cause of her persistent cough. Management involves a shift in antihistamine use or dosage adjustment, along with nasal spray application and saline gargles. This comprehensive approach is expected to diminish upper airway irritation contributing to symptoms. 2. History of resolved nodular density: A previously noted lung nodule has r esolved and does not require any current action but is documented for medical history purposes. 3. Former tobacco use: Recognized as par t of her social history with implications for respiratory health. Patient Instructions - Take Zyrtec twice daily or switch to X yzal, depending on insurance coverage or preference. - Use ipratropium nasal spray, two spray s per nostril twice daily, until sympto ms improve. - Continue Flonase as prescribed. - Perform saltwater gargles at bedtime a nd upon waking to reduce throat secretions. - Monitor for fever or worsening symptom s and return for evaluation if needed. - Obtain prescribed medications from [facility] in [place]. Consent Patient was informed and verbally consented to the use of an ambient scribe for clinic note documentation during this visit. Total time spent caring for the patient today was 30 minutes. This includes time spent before the visit reviewing the chart, time spent during the visit, and time spent after the visit on documentation, reviewing laboratory results, diagnostic imaging, medications, performing a medically necessary evaluation, counseling on diagnoses, care coordination, ordering appropriate tests, ordering appropriate medications, review of tests performed by other providers, reporting test results with the patient, communication with other healthcare providers. [facility] Medical History Pulmonary nodule Osteopenia GERD (gastroesophageal reflux disease) Urinary incontinence, mixed History of COVID-19 Vitamin D deficiency Otosclerosis Peptic ulcer disease Allergic rhinitis Cholelithiasis Thyroid nodule Tubular adenoma of colon (~2006) Hypercholesterolemia Surgical History History of eye surgery History of colonoscopy Family History Father Colorectal cancer Mother Colorectal cancer Social History Housing: House Alcohol intake: never Patient Tobacco Use Status: Former Tobacco user Tobacco use type: Cigarette Years Smoked: stopped 12/1986 e-Cigarette/Vaping Use: Never Used Second Hand Smoke Exposure: No Advance Directives Date on File: 06/16/20 service: No Current occupational status: employed Cognitive needs: No Hearing needs: No Vision needs: Yes Physical Exam Vital Signs: Last Vital Signs Temp 98.2 F 11/26/24 08:48 Pulse 93 11/26/24 08:48 Resp 13 11/26/24 08:48 BP 124/72 11/26/24 08:48 Pulse Ox 99 11/26/24 08:48 Oxygen Delivery Method Simple Mask 11/26/24 08:48 BMI result Body Mass Index 20.3 Assessment & Plan Assessment & Plan (1) Post-nasal drip: Code(s): R09.82 - Postnasal drip (2) Cough: Code(s): R05.9 - Cough, unspecified Qualifiers: Cough type: acute Qualified Code(s): R05.1 - Acute cough (3) Seasonal allergies: Code(s): J30.2 - Other seasonal allergic rhinitis Plan . Medications: New levocetirizine (Xyzal) 5 mg PO DAILY 30 tabs 1RF ipratropium bromide administer into each nostril 2 sprays intranasal BID 30 mL 1RF Coding Level of Care Code Est Pt Level 4 (49298) Diagnoses Post-nasal drip R09.82 Acute cough R05.1 Cough type: acute Seasonal allergies J30.2
[2024-11-26 08:48] VITALS: BP 124/72; PULSE 93; RESP 13; TEMP 36.8; O2SAT 99; BMI 20.3
--- OUTSIDE RECORDS SUMMARY | 2024-11-26 09:24 | XMS_ITS ---
Author Organization [facility] Address [address] [place] [address] Care Team Providers Care Occupancy Specialist Name Role Phone Ida Campa MD Primary Care Provider Fabricio Sutherland Jr [phone] REASON FOR VISIT food not going down Encounters Encounter Location Date Provider Diagnosis [facility] [address] [place] [address] 10/30/2024 Fabricio Sandoval Jr Plan Of Treatment Next Appt Details Provider Name:Fabricio jackson Jr, 03/02/2025 11:00:00 AM, [address] [place] [address], [address], [place], [address], Progress Notes * GUSTABO EUGENE EDOB:[birth year] (69 yo F)Acc No.[id number]:10/30/2024 Progress Notes Patient:?GUSTABO EUGENE Provider:?Fabricio Sandoval MD :1955???Age:69 Y???Sex:Female D ate:10/30/2024 [address] Pcp:Ida Campa MD Subjective: * Chief Complaints: * ???1. Food not going down. * Medical History:? Objective: * Vitals:? Assessment: Plan: * Treatment: * * The named appointment provid er may or may not be the originator of this progress note, and it is not deemed complete until electronically signed by the appointment provider. Sign off status: Pending * Provider:?Fabricio Sandoval MD Date:?0 10/30/2024 Generated for Trena carpio/Genet/Thaddeus on:?11/26/2024 09:23 AM EDT
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
--- OUTSIDE RECORDS SUMMARY | 2024-11-26 09:24 | XMS_ITS ---
Author Organization [facility] Address [address] [place] [address] [place] [phone] Care Team Providers Care Supervisor Contact Lens Name Role Phone Ida Campa MD Primary Care Provider Eduard Sandoval Jr, Fabricio Pichardo [phone] REASON FOR VISIT path Medications Medication SIG (Take, Route, Fr equency, Duration) Notes Start Date End Date Status Omeprazole 20 MG 1 capsule 1/2 to 1 h our before morning meal Orally Once a day for 30 days 11/17/2024 Active Encounters Encounter Location Date Provider Diagnosis [facility] [address] [place] [phone] 11/04/2024 Fabricio Sandoval Jr Plan Of Treatment Medication Medication Name Sig Start Date Stop Date Notes Omeprazole 20 MG 1 capsule 1/2 to 1 h our before morning meal Orally Once a day for 30 days 11/17/2024 Next Appt Details Provider Name:Fabricio jackson Jr, 03/02/2025 11:00:00 AM, [address] [place] [address], Suite [facility], [place], [address], Progress Notes * GUSTABO EUGENE EDOB:[birth year] (69 yo F)Acc No.[id number]:11/04/2024 Patient:?GUSTABO EUGENE :1955???Age:69 Y???Sex:Female Address:[facility] [address], [place] [address] * Refills? Start Omeprazole Capsule Delayed Release, 20 MG, Orally, 30, 1 capsule 1/2 to 1 hour before morning meal, Once a day, 30 days, Refills=5 * true * Date:? Generated for Trena carpio/Genet/Brysonitting on:?11/26/2024 09:24 AM EDT
--- OUTSIDE RECORDS SUMMARY | 2024-11-26 09:24 | XMS_ITS ---
Author Organization [facility] Address [address] [place] [address] Care Team Providers Care Folder Machine Name Role Phone Ida Campa MD Primary Care Provider Fabricio Sutherland Jr Unavailable REASON FOR VISIT dysphagia Medications Medication SIG (Take, Route, Frequency, Duration) Notes Start Date End Date Status Flonase 50 MCG/ACT 1 spray in each nost ril Nasally Once or twice a day Active Triamcinolone Acet-Pentoxifyll 0.1-0.5 % as directed Externally Active Tacrolimus 0.1 % 1 application Senior It Engineer ally Once a day Active Clobetasol Prop Emollient Base 0.05 % 1 application Externally Twice a day for 10 day(s) Active MiraLax (colon prep) 8.3 ounce ((238) grams mixed with Gatorade or Crystal Light orally begin at 5:00 p.m. the day before the procedure for 1 day 01/27/2021 Active Mometasone Furoate 0.1 % Externally as needed Active Mupirocin 2 % 1 application Senior It Engineer ally as needed Active Fiber Orally once [...] Status W/U Status Risk Notes Problem Dysphagia (92512395) Dysphagia (R13.10) Active confirmed Problem Schatzki's ring (14067859) Schatzki's ring (K22.2) Active confirmed Encounters Encounter Location Date Provider Diagnosis [facility] Outpatient [address] [place] [phone] 10/31/2024 Fabricio Sandoval Jr Dysphagia R13.10 and Schatzki's ring K22.2 Assessments Encounter Date Diagnosis (ICD Code) Assessment Notes Treatment Notes Treatment Clinical Notes Section Notes 10/31/2024 Dysphagia (ICD-10 - R13.10) 10/31/2024 Schatzki's ring (ICD-10 - K22.2) Plan Of Treatment Next Appt Details Provider Name:Fabricio jackson Jr, 03/02/2025 11:00:00 AM, [address] [place] [address], [address], [place], [address], Progress Notes * GUSTABO EUGENE EDOB:[birth year] (69 yo F)Acc No.[id number]:10/31/2024 EGD/MAC Patient:?CLAIREMONTYKelsea GUSTABO E Provider:?Fabricio Sandoval MD :1955???Age:69 Y???Sex:Female D ate:10/31/2024 Address:[address] [place], [place] [id number] Pcp:Ida Campa MD Subjective: * Chief Complaints: * ???1. Dysphagia. * Medical History:? * Medications:?Taking Clobetas ol Prop Emollient Base 0.05 % Cream 1 [...] the day before the procedure Objective: * Vitals:? Assessment: * Assessment: 1.?Dysphagia - R13.10 (Prima ry)???2.?Schatzki's ring - K22.2??? Plan: * Treatment: * Procedure Codes:?66144 UPPER GI ENDOSCOPY, BIOPSY, 35984 ESOPH ENDOSCOPY, DILATION, Modifiers: 59 * * The named appointment provid er may or may not be the originator of this progress note, and it is not deemed complete until electronically signed by the appointment provider. Sign off status: Pending * Provider:?Fabricio Sandoval MD Date:?0 10/31/2024 Generated for Trena carpio/Genet/Thaddeus on:?11/26/2024 09:24 AM EDT
== END 2024-11-26 09:16 | disposition home or self-care (01) ==
PROVIDERS: PCP Internal Medicine; Visit Provider Nurse Practitioner Family
DX: R09.82 Postnasal drip (principal); R05.1 Acute cough; J30.2 Other seasonal allergic rhinitis

== ENCOUNTER → 2024-11-26 08:36 | Outpatient (BNVA) | payer MEDICARE, BC, SELFPAY | PROVIDERS: PCP Internal Medicine | DX: R09.82 Postnasal drip (principal); R05.1 Acute cough; J30.2 Other seasonal allergic rhinitis | CPT/HCPCS: 99212 ==

== ENCOUNTER 2024-11-27 10:51 | Outpatient (AMB) | payer MEDICARE, BC, SELFPAY ==
[2024-11-27 10:56] VITALS: BP 122/78; PULSE 68; RESP 22; TEMP 36.4; O2SAT 99; BMI 19.7
--- NOTE | 2024-11-27 10:56 | MHC.PC.OV ---
Vital Signs 11/27/24 10:56 Height 5 ft 4.5 in Weight 116 lb 6.4 oz BMI 19.7 BP 122/78 Blood Pressure Location Lt brachial Position Sitting Respiration 22 H Pulse 68 Pulse Source Pulse Oximeter Temp 97.5 F Temp Source Oral Pulse Oximetry (%) 99 Oxygen Delivery Method Room Air Intake Visit Reasons: cough, congestion, fatigue Automobile Mechanic Assistant Required: No Accompanied by: Self / Same As Patient Allergies Seasonal Allergies Allergy (Intermediate, Verified 12/08/24 11:22) Itchy Eyes Medication List - Last Reconciled 11/27/24 by CARISA Joy ascorbate calcium (vitamin C) 500 mg PO DAILY C,E,zinc,copper 91-sbmeh7j-zca 250-5-1 mg (Ocuvite Adult 50 Plus) 1 cap PO DAILY calcium carb,lactat-vitamin D3 200 mg-6.25 mcg (250 unit) 2 tabs PO DAILY cetirizine 10 mg PO DAILY PRN clobetasol 0.05% 1 appl topical BEDTIME flaxseed oil 1,000 mg PO BID fluticasone propionate 50 mcg/actuation 2 sprays intranasal DAILY qkvcsexm-yls-kspix-dph200-sjtt 500-500-66.7 mg (Oebadsqkbav-Tpxuuvefnwk-LTU (with antiox)) 2 tabs PO DAILY ipratropium bromide 2 sprays intranasal BID levocetirizine (Xyzal) 5 mg PO DAILY omeprazole 20 mg PO DAILY oxybutynin chloride ER 10 mg PO DAILY psyllium husk (Fiber (psyllium husk)) 0.4 grams PO BEDTIME simvastatin 5 mg PO BEDTIME 90 days Tobacco use date assessed: 11/27/24 Fall risk assessment: No Falls in past year Last assessed Fall Risk: 11/27/24 Dental Screening Dental Screen Date: 11/27/24 Did you have a dental visit in the last 12 months?: Yes Did you have a dental problem in the last 6 months where you did not have access to dental care?: No Was dental information given to patient?: Patient has dentist HPI cough, congestion, fatigue HPI Details The patient is a 69-year-old female who is presenting with cold symptoms Reports that her symptoms have been going on since last . She went to the walk-in yesterday and she is still not having any relief. She was given ipratropium bromide and xyzal 5 mg daily and she is using cough syrups. The patient reports that her cough is worse in the evening into the night. Breathing feels heavy, coughing up greenish secretion intermittently. Denies having fever, reports that her chest feels heavier. On exam: Her nasal passage with erythematous and boggy, yellowish drainage in right nostril [facility] Medical History Pulmonary nodule Osteopenia GERD (gastroesophageal reflux disease) Urinary incontinence, mixed History of COVID-19 Vitamin D deficiency Otosclerosis Peptic ulcer disease Allergic rhinitis Cholelithiasis Thyroid nodule Tubular adenoma of colon (~2006) Hypercholesterolemia Surgical History History of eye surgery History of colonoscopy Family History Father Colorectal cancer Mother Colorectal cancer Social History Housing: House Alcohol intake: never Patient Tobacco Use Status: Former Tobacco user Tobacco use type: Cigarette Years Smoked: stopped 12/1986 e-Cigarette/Vaping Use: Never Used Second Hand Smoke Exposure: No Advance Directives Date on File: 06/16/20 service: No Current occupational status: employed Cognitive needs: No Hearing needs: No Vision needs: Yes Questionnaire PHQ-9 Over the last 2 weeks, how often have you been bothered by any of the following problems? 1. Little interest or pleasure in doing things: not at all 2. Feeling down, depressed, or hopeless: not at all 3. Trouble falling or staying asleep, or sleeping too much: not at all 4. Feeling tired or having little energy: not at all 5. Poor appetite or overeating: not at all 6. Feeling bad about yourself - or that you are a failure or have let yourself or your family down: not at all 7. Trouble concentrating on things, such as reading the newspaper or watching television: not at all 8. Moving or speaking so slowly that other people could have noticed. Or the opposite - being so fidgety or restless that you have been moving around a lot more than usual: not at all 9. Thoughts that you would be better off or of hurting yourself in some way: not at all Total score: 0 Depression Screening Interpretation: Negative Depression Screening Done: Yes 88721 - PHQ-9 Billing: Yes Source: Developed by Drs. Wally Agustin, Lenore Garrison, Lee Limon and colleagues, with an educational jose carlos from [employer]. Thrive Questionnaire Date Thrive assessed: 11/27/24 I am a: Patient What is your living situation today?: I have a steady place to live Within the past 12 months, did the food you bought not last and you didn't have the money to get more?: Never true Within the past 12 months, did you worry whether your food would run out before you got money to buy more?: Never true Do you have trouble paying for medicines?: No Do you have trouble getting transportation to medical appointments?: No Do you have trouble paying your heating and electricity bill?: No Do you have trouble taking care of your child, family member or friend?: No Do you have trouble with day-to-day activities such as bathing, preparing meals, shopping, managing finances, etc.?: No Are you currently unemployed and looking for a job?: No Are you interested in more education?: No Please select the resources that you would like help with: None Currently or been in a relationship where the following occur: No concerns reported THRIVE Score: 0 AUDIT C Alcohol Use Questionnaire (AUDIT-C) 1. How often do you have a drink containing alcohol?: Never Total Score: 0 LANA-7 AMB Questionnaire LANA-7 Date LANA - 7 assessed: 11/27/24 Feeling nervous, anxious, or on edge: 0 = Not at all Not being able to stop or control worryin = Not at all Worrying too much about different things: 0 = Not at all Trouble relaxin = Not at all Being so restless that it is hard to sit still: 0 = Not at all Becoming easily annoyed or irritable: 0 = Not at all Feeling afraid as if something awful might happen: 0 = Not at all Total LANA-7 score (0-4 normal; 5-9 mild; 10-14 moderate; 15-21 severe): 0 Source: Developed by Mitch Abreuet B.W. Bladimir, Lee Limon and colleagues, with an educational jose carlos from [employer]. LANA-7 Assessment Billing LANA-7 Assessment Tool: LANA-7 Assessment 37371 Review of Systems Const Denies headache(s) Eyes Denies loss of vision ENT Denies vertigo, Denies dizziness, Denies headache(s), Reports nasal congestion, Reports nasal discharge, Reports sinus pressure and Denies sore throat Card Denies chest pain, Denies leg edema and Denies lightheadedness Resp Denies cough, Denies hemoptysis and Denies wheezing GI Denies abdominal pain, Denies melena, Denies constipation, Denies diarrhea and Denies vomiting Denies urinary frequency, Denies dysuria and Denies urinary urgency Musc Denies arthralgias, Denies joint swelling, Denies numbness and Denies tingling Neuro Denies behavioral changes, Denies vertigo, Denies dizziness, Denies headache(s), Denies loss of vision, Denies memory loss, Denies numbness and Denies tingling Psych Denies anxiety, Denies behavioral changes, Denies depression, Denies memory loss and Denies panic attacks César/Lymph Denies easy bleeding and Denies easy bruising Aller/Immun Denies wheezing Physical exam (Primary Care) Vital Signs: Last Vital Signs Temp 97.5 F 11/27/24 10:56 Pulse 68 11/27/24 10:56 Resp 22 H 11/27/24 10:56 BP 122/78 11/27/24 10:56 Pulse Ox 99 11/27/24 10:56 Oxygen Delivery Method Room Air 11/27/24 10:56 BMI result Body Mass Index 19.7 Tobacco/Smoking Status: Tobacco use Status Tobacco use date assessed 11/27/24 11/27/24 11:10 Patient Tobacco Use Status Former Tobacco user 11/27/24 11:10 Tobacco use type Cigarette 11/27/24 11:10 e-Cigarette/Vaping Use Never Used 11/27/24 11:10 PHQ-9: PHQ-9 Score PHQ-9: Total score 0 11/27/24 11:40 Depression Screening Interpretation: Negative Thrive Assessment: Date of Thrive Assessment Date Thrive assessed 11/27/24 11/27/24 11:10 Currently or been in a relationship where the following occur: No concerns reported Const General: healthy appearing, no acute distress, alert and awake Nutritional Appearance: well nourished HENMT Ears: TM's normal bilaterally General nose exam: Abnormal mucous membranes and turbinates present boggy and erythematous Face and sinus: Yes sinus tenderness Mouth: Normal oral and palatal mucosa present Throat: Yes posterior oropharynx normal Eyes Conjunctivae: conjunctivae normal Sclerae: sclerae normal Neck Neck: Yes no lymphadenopathy and Yes no JVD Thyroid: Thyroid normal Carotids: no bruits Resp Effort & Inspection: normal respiratory effort and not tachypneic Auscultation: no crackles, no rales, no rhonchi and no wheezes Cardio Rate: regular rate Rhythm: regular rhythm Heart sounds: no murmurs and normal S1 and S2 GI Palpation (GI): Soft to palpation, nontender, no hepatomegaly and no splenomegaly Auscultation: normal bowel sounds Coding Level of Care Code Est Pt Level 3 (08696) Diagnoses Rhinosinusitis J32.9 Additional Codes LANA-7 Assessment Billing - LANA-7 Assessment Tool: LANA-7 Assessment 23607 ([id number]) PHQ-9 - 10269 - PHQ-9 Billing: Yes ([id number]) Time Spent (min) 29 Assessment & Plan Assessment & Plan (1) Rhinosinusitis: Code(s): J32.9 - Chronic sinusitis, unspecified Category: Medical Plan: Augmentin b.i.d. times 10 days was ordered. Continue Flonase nose spray 2 spray intranasally daily and cetirizine 10 mg daily p.r.n. contact office if symptoms are not improving or worsens Medications: New amoxicillin-pot clavulanate 875-125 mg 1 tab PO BID 20 tabs 0RF 10 days J32.9 - Chronic sinusitis, unspecified
== END 2024-11-27 11:57 | disposition home or self-care (01) ==
LOC: HO.HMCH 10:52
PROVIDERS: PCP Internal Medicine
DX: J32.9 Chronic sinusitis, unspecified (principal)

== ENCOUNTER → 2024-11-27 10:51 | Outpatient (BNVA) | payer MEDICARE, BC, SELFPAY | PROVIDERS: PCP Internal Medicine | DX: J32.9 Chronic sinusitis, unspecified (principal) | CPT/HCPCS: 96127; 99212 ==

== ENCOUNTER 2025-05-15 13:24 | Outpatient (REF) | payer MEDICARE, BC, SELFPAY ==
--- OUTSIDE RECORDS SUMMARY | 2024-10-30 10:35 | XMS_ITS ---
Author Organization [facility] Address [address] [facility] [address] [place] [phone] Care Team Providers Care Dictaphone Transcriber Name Role Phone Ida Campa MD Primary Care Provider Fabricio Sutherland Jr REASON FOR VISIT food not going down Encounters Encounter Location Date Provider Diagnosis [facility] [address] [place] [address] 10/30/2024 Fabricio Sandoval Jr Plan Of Treatment Next Appt Details Provider Name:Fabricio jackson Jr, 03/01/2026 11:10:00 AM, [address] [place] [address], [address], [place], [phone], Progress Notes * GUSTABO EUGENE EDOB:[birth year] (69 yo F)Acc No.[id number]:10/30/2024 Progress Notes Patient: NOEMY TONGAN Brook Provider: Leo Sandoval MD :1955 A ge:69 Y S ex:Female Date:10/30/2024 [facility] Pcp:Ida Campa MD Subjective: * Chief Complaints: [...] 0 10/30/2024 Generated for Trena carpio/Genet/Thaddeus on: 0 05/15/2025 01:33 PM EDT
--- OUTSIDE RECORDS SUMMARY | 2024-10-31 05:00 | XMS_ITS ---
Author Organization [facility] Address [address] [place] [phone] Care Team Providers Care Manager Group Name Role Phone Ida Campa MD Primary Care Provider Fabricio Sutherland Jr Unavailable REASON FOR VISIT dysphagia Medications Medication SIG (Take, Route, Frequency, Duration) Notes Start Date End Date Status Flonase 50 MCG/ACT 1 spray in each nost ril Nasally Once or twice a day Active Triamcinolone Acet-Pentoxifyll 0.1-0.5 % as directed Externally Active Tacrolimus 0.1 % 1 application Criminal Justice Lawyer ally Once a day Active Clobetasol Prop Emollient Base 0.05 % 1 application Externally Twice a day for 10 day(s) Active MiraLax (colon prep) 8.3 ounce ((238) grams mixed with Gatorade or Crystal Light orally begin at 5:00 p.m. the day before the procedure for 1 day 01/27/2021 Active Mometasone Furoate 0.1 % Externally as needed Active Mupirocin 2 % 1 application Criminal Justice Lawyer ally as needed Active Fiber Orally once [...] Status W/U Status Risk Notes Problem Dysphagia (65630809) Dysphagia (R13.10) Active confirmed Problem Schatzki's ring (80722766) Schatzki's ring (K22.2) Active confirmed Encounters Encounter Location Date Provider Diagnosis [facility] [place] [address] [place] [phone] 10/31/2024 Fabricio Sandoval Jr Dysphagia R13.10 and Schatzki's ring K22.2 Assessments Encounter Date Diagnosis (ICD Code) Assessment Notes Treatment Notes Treatment Clinical Notes Section Notes 10/31/2024 Dysphagia (ICD-10 - R13.10) 10/31/2024 Schatzki's ring (ICD-10 - K22.2) Plan Of Treatment Next Appt Details Provider Name:Fabricio jackson Jr, 03/01/2026 11:10:00 AM, [address] [place] [address], [address], [place], [address], Progress Notes * GUSTABO EUGENE EDOB:[birth year] (69 yo F)Acc No.[id number]:10/31/2024 EGD/MAC Patient: NOEMY TONGAN Brook Provider: Leo Sandoval MD :1955 A ge:69 Y S ex:Female Date:10/31/2024 Address:[address] [place], [place] [id number] Pcp:Ida Campa MD Subjective: * Chief Complaints: [...] ysphagia - R13.10 (Primary) 2 . S francy's ring - K22.2 ? Plan: * Treatment: * Procedure Codes: 4 3239 UPPER GI ENDOSCOPY, BIOPSY, [address] ESOPH ENDOSCOPY, DILATION, Modifiers: 59 * * The named appointment provid er may or may not be the originator of this progress note, and it is not deemed complete until electronically signed by the appointment provider. Sign off status: Pending * Provider: Leo Sandoval MD Date: 0 10/31/2024 Generated for Trena carpio/Genet/Thaddeus on: 0 05/15/2025 01:34 PM EDT
--- OUTSIDE RECORDS SUMMARY | 2025-05-15 13:33 | XMS_ITS | Encounter Summary ---
Author Organization [facility] Address [address] [place] [address] Phone Care Team Providers Care Waterproofer Name Role Phone Roberth Smith Unavailable [phone] Ida Campa MD Unavailable [phone] Janis Stoll MD Unavailable Zainab Wakefield RD Unavailable [email or web address] Ida Campa MD Primary Care Provider [phone] Encounter Details Date Type Department Care Team (Late st Contact Info) Description 03/15/2018 Ancillary Orders Virtual Department [address] [place] [address] Ida Campa MD [address] [place] [phone] Breast screening Social History Tobacco Use Types Packs/Day Years Used Date Smoking Tobacco: Former Cigarettes Q uit: 12/12/1986 Smokeless Tobacco: Never Alcohol Use Standard Drinks/Week Comments No 0 (1 standard drink = 0.6 oz pur e alcohol) Comments No Sex and Gender Information Value Date Recorded Sex Assigned at Female 09/17/2017 9:38 AM EST Legal Sex Female 9:55 PM EDT Gender Identity Female 09/17/2017 9:38 AM EST Sexual Orientation Straight 09/17/2017 9: 38 AM EST documented as of this encounter Plan of Treatment Not on file documented as of this encounter Results * BI MAMMOGRAM SCREENING WITH TOMOSYNTHESIS WITH CAD (BILATERAL) (04/26/2018 1:42 PM EDT) Anatomical Region Laterality Modality Breast Left, Breast Right, Breast Bilateral Bila teral Mammography 04/29/2018 11:4 0 AM EDT Impressions 04/29/2018 1:02 PM EDT No mammographic signs of malignancy. Annual screening is recommended. BI-RADS CATEGORY: 1 - Negative. DENSITY: The breast tissue is heterogeneously dense, an appearance which lowers the sensitivity of mammography. POS - [id number] Narrative 04/29/2018 1:02 PM EDT Bilateral mammography is performed in conjunction with computed aided detection. 3-D tomography along with 2-D C view imaging was also performed. Comparison made to previous dated as far back as 03/08/2012 and as recent as 04/25/2017. Patient is status-post benign excisional biopsies bilaterally. No suspicious masses, areas of architectural distortion or suspicious microcalcifications. Procedure Note Pedro Neal MD - 04/29/2018 Bilateral mammography is performed in conjunction with computed aideddetection. 3-D tomography along with 2-D C view imaging was alsoperformed. Comparison made to previous dated as far back as 03/08/2012 andas recent as 04/25/2017. Patient is status-post benign excisional biopsies bilaterally. No suspicious masses, areas of architectural distortion or suspiciousmicrocalcifications. IMPRESSION: No mammographic signs of malignancy. Annual screening is recommended. BI-RADS CATEGORY: 1 - Negative. DENSITY: The breast tissue is heterogeneously dense, an appearance whichlowers the sensitivity of mammography. POS - [id number] Ida Campa MD IMG MG EXAMS Final Result documented in this encounter Visit Diagnoses Diagnosis Breast screening Breast screening, unspecified Breast screening Breast screening, unspecified documented in this encounter Care Teams Waterproofer Relationship Specialty Start Date End Date Ida Campa MD [address] [place] [address] [place] [phone] PCP - General 09/13/17 Roberth Smith PA [address] [place] [address] Historical LMR Provider 06/28/17 2 Ida Campa MD [address] [place] [address] [address] [place] [phone] Historical LMR Provider 06/28/17 Janis Stoll MD [address] [facility], [address] [place] [address] Historical LMR Provider 06/28/17 Zainab Wakefield RDCS Historical LMR Provider 06/28/17 09/17/21 documented as of this encounter Additional Source Comments The information contained in this document represents components of the legal health record. It is not the complete legal health record.[facility]
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
--- OUTSIDE RECORDS SUMMARY | 2025-05-15 13:33 | XMS_ITS | Encounter Summary ---
Author Organization [facility] Address [address] [place] [address] Phone Care Team Providers Care Hydraulic Press Tender Name Role Phone Roberth Smith Unavailable Ida Campa MD Unavailable [phone] Janis Stoll MD Unavailable Zainab Wakefield RD Unavailable [email or web address] Ida Campa MD Primary Care Provider [phone] Encounter Details Date Type Department Care Team (Late st Contact Info) Description 02/04/2019 Ancillary Orders Virtual Department [address] [place] [address] Ida Campa MD [address] [place] [phone] Breast screening Social History Tobacco Use [...] MAMMOGRAM SCREENING WITH TOMOSYNTHESIS WITH CAD (BILATERAL) (04/28/2019 12:57 PM EDT) Anatomical Region Laterality Modality Breast Left, Breast Right, Breast Bilateral Bila teral Mammography 04/28/2019 1:06 PM EDT Impressions 04/28/2019 1:10 PM EDT No mammographic evidence of malignancy. Recommend routine annual surveillance. BI-RADS CATEGORY: 1 - Negative. DENSITY: The breast tissue is heterogeneously dense, an appearance which lowers the sensitivity of mammography. POS - [id number] Narrative 04/28/2019 1:10 PM EDT 63-year-old female with no current breast symptoms. Comparison made to previous on 04/26/2018 and as far back as 04/03/2013. Interpretation made in conjunction with computer-aided detection and tomosynthesis. The breasts are heterogeneously dense, which may obscure small masses. There are no suspicious masses, areas of architectural distortion, or suspicious clusters of microcalcifications. Procedure Note Alicia Ellis MD - 04/28/2019 63-year-old female with no current breast symptoms. Comparison made toprevious on 04/26/2018 and as far back as 04/03/2013. Interpretation madein conjunction with computer-aided detection and tomosynthesis. The breasts are heterogeneously dense, which may obscure small masses. There are no suspicious masses, areas of architectural distortion, orsuspicious clusters of microcalcifications. IMPRESSION: No mammographic evidence of malignancy. Recommend routine annualsurveillance. BI-RADS CATEGORY: 1 - Negative. DENSITY: The breast tissue is heterogeneously dense, an appearance whichlowers the sensitivity of mammography. POS - [id number] Ida RONG MG EXAMS Final Result documented in this encounter Visit Diagnoses Diagnosis Breast screening Breast screening, unspecified Breast screening Breast screening, unspecified documented in this encounter Care Teams Hydraulic Press Tender Relationship Specialty Start Date End Date Ida Campa MD [address] [facility] [address] [place] [phone] PCP - General 09/13/17 Roberth Smith PA [address] [place] [address] Historical LMR Provider 06/28/17 2 Ida Campa MD [address] [place] [address] [place] [phone] Historical LMR Provider 06/28/17 Janis Stoll MD [address] [place] [address], [address] [address] Historical LMR Provider 06/28/17 Zainab Wakefield, EBONI Historical LMR Provider 06/28/17 09/17/21 documented as of this encounter Additional Source Comments The information contained in this document represents components of the legal health record. It is not the complete legal health record.[facility]
--- OUTSIDE RECORDS SUMMARY | 2025-05-15 13:33 | XMS_ITS | Clinical Summary ---
Author Organization [facility] Address [address] [place] [address] Phone Care Team Providers Care International Relations Teacher Name Role Phone Ida Campa MD Unavailable [phone] Janis Stoll MD Unavailable Ida Campa MD Primary Care Provider [phone] Allergies No known active allergies Medications calcium carbonate-vitam in D3 1,500 mg (600 mg elemental)-200 units Tab 1 tablet with food Active clobetasol (TEMOVATE) 0.05 % cream 1 application to affected area Active polycarbophil (FIBERCON) 625 mg tablet Active Medication-Free Text Flax seed oil Active fluticasone propionate (FLONASE) 50 mcg/actuation nasal spray 1 spray in each nostril Active glucosam storey svu-ppxgraffl-V -Mn 534-887-27-3 mg Cap Active mometasone (ELOCON) 0.1 % ointment 1 application to affected area Active MULTIVIT WITH MINERALS/LUTEIN (MULTIVITAMIN 50 PLUS ORAL) Active mupirocin (BACTROBAN) 2 % ointment 1 application to affected area Active vitamin A,C & P-ooezbb-hfamah ls (OCUVITE) 300 mcg-200 mg-27 mg-2 mg Tab Active oxybutynin (DITROPAN) 5 MG tablet Active cetirizine (ZYRTEC) 10 mg capsule Active simvastatin (ZOCOR) 5 MG tablet Take 5 mg by mouth nightly at bedtime. 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 08/18/2021 Overview (10/18/2023): 2014 - NILM/HPV neg 2020 - HPV16 Sep 2021 - colpo done, ECC sent 09/2022 - NILM/HPV neg 10/2023 - NILM/HPV neg PLAN PAP 3 yrs Assessment & Plan (09/21/2021 12:47 PM EST): colpo reviewed - if HGSIL , advise treatment; if OMAR 1 or better, pap in one year Encounters Date Type Department Care Team Description 04/15/2025 Transcribe Orders Virtual Department [address] [place] [address] Ida Campa MD Breast screening (Primary Dx) from Last 3 Months Immunizations Immunization Administration Dates Next Due COVID-19 (Pre-07/02) Moderna Vaccine, mRNA, PF 11/08/2020,10/08/2020 [id number] FORMULATION 07/30/2009 INFLUENZA, SPLIT VIRUS, TRIVALENT PF 06/20/2017 Influenza Quadrivalent Adjuv anted Preservative Free IM 06/24/2021 Influenza Quadrivalent Prese rvative Free IM 06/24/2019,06/25/2018,06/27/2016 Influenza, Unspecified Formulation 05/22,06/29/2010,06/16/2009,07/09,06/28/2007,08/29/2004,06/30/2003 ,07/15/2001,08/07/2000,06/23/1999,06/10,06/10/1997,06/18/1996 Pneumococcal polysaccharide PPSV23 05/11/2021 Tdap 06/27/2016 Zoster recombinant 12/13/2018,10/14/2018 Family History Medical History Relation Comments Cancer Father Colon Cancer Colon cancer Father Cancer Mother Colon Cancer Colon cancer Mother Breast cancer Neg Hx Relation Status Comments Father Mother Social History Tobacco Use Types Packs/Day Years Used Date Smoking Tobacco: Former Cigarettes 1 16 1 - 12/12/1986 Smokeless Tobacco: Never Alcohol Use Standard Drinks/Week Comments No 0 (1 standard drink = 0.6 oz pur e alcohol) Education Answer Date Recorded Are you interested in more education? Not on [place] e 01/05/2023 Are you concerned about learning? Not on file 01/05/2023 No 01/05/2023 No 01/05/2023 Digital Access Answer Date Recorded No 02/05/2023 No 02/05/2023 Reliable internet access at home? Not on file 02/05/2023 Device with a working camera? Not on file Comments No Sex and Gender Information Value Date Recorded Sex Assigned at Female 09/17/2017 9:38 AM EST Legal Sex Female 9:55 PM EDT Gender Identity Female 09/17/2017 9:38 AM EST Sexual Orientation Straight 09/17/2017 9: 38 AM EST Last Filed Vital Signs Vital Sign Reading Time Taken Comments Blood Pressure 112/74 10/11/2023 2:55 PM EST Pulse 58 06/20/2016 10:21 AM EDT Temperature - - Respiratory Rate - - Oxygen Saturation - - Inhaled Oxygen Concentration - - Weight 52.2 kg (115 lb) 10/11/2023 2:55 PM EST Height 163.8 cm (5' 4.5 ) 10/11/2023 2:55 PM EST Body Mass Index 19.43 10/11/2023 2:55 PM EST Plan of Treatment Health Maintenance Due Date Last Done Comments DEPRESSION SCREENING 1967 HEPATITIS C SCREENING 1973 COLOGUARD 2000 COLONOSCOPY 2000 COLORECTAL CANCER SCREENING 2000 FIT TEST 2000 FOBT 2000 SIGMOIDOSCOPY 2000 VIRTUAL COLONOSCOPY 2000 OSTEOPOROSIS SCREENING INITIAL (ONE-TIME) 2020 INFLUENZA VACCINE (#1) 2025 , 06/26/2022, 06/24/2021, Additional history exists LIPID PANEL 04/19/2025 04/19/2020 COVID-19 VACCINE ( season) 2025 08/20/2023, 06/05/2022, 12/18/2021, Additional history exists MAMMOGRAM 06/09/2026 06/09/2024, 05/11, 05/25/2022, Additional history exists Adult Td,Tdap Booster 06/27/2026 06/27/2016 PAP SMEAR 10/11/2026 10/11/2023, 09/11, 08/10/2021, Additional history exists ZOSTER VACCINES Completed 12/13/2018, 10/14/2018 PNEUMOCOCCAL VACCINES (50+ years) Completed 06/09/2022, 05/11/2021 RSV VACCINE Completed 08/20/2023 SMOKING STATUS SCREENING (Once After 26 Yrs) Completed 06/09/2024 HEPATITIS A VACCINES Aged Out No long er eligible based on patient's age to complete this topic HIB VACCINES Aged Out No longer eligi ble based on patient's age to complete this topic MENINGOCOCCAL VACCINES (ACWY) Aged Out No longer eligible based on patient's age to complete this topic MENINGOCOCCAL VACCINES (B) Aged Out N o longer eligible based on patient's age to complete this topic Medical Devices Not on file Procedures Procedure Name Priority Date/Time Associated Diagnosis Comments BI MAMMOGRAM SCREENING WITH TOMOSYNTHESIS WITH CAD (BILATERAL) Routine 06/09/2024 2:49 PM EDT Visit for screening mammogram PAP TEST Routine 10/11/2023 12:00 AM EST LIPID PANEL Routine 04/19/2020 7:36 AM EDT Hypothyroidism, unspecified type Hypercholesteremia from Last 3 Months or Most Recently Relevant to Health Maintenance Results * BI MAMMOGRAM SCREENING WITH TOMOSYNTHESIS WITH CAD (BILATERAL) (06/09/2024 2:49 PM EDT) Anatomical Region Laterality Modality Breast Left, Breast Right, Breast Bilateral Bila teral Mammography 06/09/2024 6:06 PM EDT Impressions 06/09/2024 6:12 PM EDT No mammographic evidence of malignancy in either breast. Annual screening mammography is recommended. BI-RADS 1 NEGATIVE The patient will be notified of the results and recommendations. Narrative 06/09/2024 6:12 PM EDT BI MAMMOGRAM SCREENING WITH TOMOSYNTHESIS WITH CAD (BILATERAL) Additional patient information: Screening. COMPARISON: Comparison is made with relevant prior imaging. Breast composition: The breast tissue is heterogeneously dense which may obscure small masses. FINDINGS: Accounting for differences in patient positioning, no suspicious interval change. No abnormal masses, suspicious calcifications, or other significant findings are identified mammographically in either breast. Procedure Note Gelacio Wei MD - 06/09/2024 BI MAMMOGRAM SCREENING WITH TOMOSYNTHESIS WITH CAD (BILATERAL) Additional patient information: Screening. COMPARISON: Comparison is made with relevant prior imaging. Breast composition: The breast tissue is heterogeneously dense which mayobscure small masses. FINDINGS: Accounting for differences in patient positioning, no suspicious intervalchange. No abnormal masses, suspicious calcifications, or other significantfindings are identified mammographically in either breast. IMPRESSION: No mammographic evidence of malignancy in either breast. Annual screening mammography is recommended. BI-RADS 1 NEGATIVE The patient will be notified of the results and recommendations. Ida Campa MD IMG MG EXAMS Final Result * Pap Test (10/11/2023 12:00 AM EST) 10/11/2023 10/12/2023 9:3 0 AM EST Narrative SEE NARRATIVE - 10/17/2023 1:16 [place] [address] Bill Hiker: Nela Castro MD LOGISTICS ADMINISTRATOR Cytology Report FINAL DIAGNOSIS A. PAP SMEAR (SUREPATH) CE: SPECIMEN ADEQUACY: Satisfactory for evaluation; transformation zone present. Evaluation limited by scant cellularity. INTERPRETATION: NEGATIVE FOR INTRAEPITHELIAL LESION OR MALIGNANCY. Atrophy. Electronically Signed Out By: SAÚL Figueroa(ASCP) SAÚL Alvarado(ASCP) The Pap test is a screening test primarily for squamous cancers and precursors and has associated false-negative and false-positive results. New technologies such as liquid-based preparations may decrease but will not eliminate all false-negative results. Regular sampling and follow-up of unexplained clinical signs and symptoms are recommended to minimize false negative results. PROCEDURES/ADDENDA HPV Testing (Requested) Ordered Date: 10/12/2023 A. PAP SMEAR (SUREPATH) CE: Human Papilloma Virus Test NEGATIVE for high-risk Human Papilloma Virus types 16, 18, 45 and the Other high risk probe set (Includes 31, 33, 35, 39, 51, 52, 56, 58, 59, 66, 68) Note: Testing performed by [employer] HR-HPV analysis. Clinical correlation is advised. This HPV test was performed at [facility], [address] [place] [address]. This test has been FDA approved for Sure[employer] cervical cytology specimens. The accuracy and precision of this test for all other specimen sources has been verified in the Cytopathology Laboratory of the [facility] and has not been cleared or approved by the U.S. Food and Drug Administration. Clinical correlation is advised. CLINICAL HISTORY Date of Last Menstrual Period: Not Provided Menstrual History: Post Menopausal Infection History: HPV: OTHER HIGH RISK, 2020 Other Clinical Conditions: Diagnostic Pap SPECIMEN SOURCE A: PAP SMEAR (SUREPATH) CE Patient Name: CARI EUGENE : 1955 (Age: 68) Sex: F Institution: [facility] Location: [facility] Date of Collection: 10/11/2023 Date of Reported: 10/17/2023 13:16 Results to: Mikaela Morgan MD Mikaela Morgan MD CYTOLOGY ORDERABLES Final Result SEE NARRATIVE * (ABNORMAL) Lipid panel (04/19/2020 7:36 AM EDT) HDL 66 mg/dL [facility] Comment: Interpretation <40 mg/dL: Low HDL cholesterol (major risk factor for CHD) Greater than or equal to 60 mg/dL: High HDL cholesterol ( negative risk factor for CHD) HDL - cholesterol is affected by a number of factors, e.g. smoking, excerise, hormones, sex and age. CHOLESTEROL 214 0 - 240 mg/dL [facility] TRIGLYCERIDES 89 30 - 160 mg/dL [facility] LDL 130(H) 50 - 129 mg/dL [facility] Comment: LDL levels in terms of risk for coronary heart disease: <100 mg/dL: Optimal 100-129 mg/dL: Near or above optimal 130-159 mg/dL: Borderline high 160-189 mg/dL: High >190 mg/dL: Very High CARDIAC RISK RATIO 3.2(L) 3.3 - 4.4 C [facility] Blood 04/19/2020 7:36 AM EDT 04/19/2020 7:42 AM EDT us Ida Campa MD LAB BLOOD ORDERABLES Final Re sult [facility] [address] [place] [address] from Last 3 Months or Most Recently Relevant to Health Maintenance Insurance [facility] Address: [facility] [id number] [place] [address] MEDICARE PART A & B Member Subscriber Plan / Payer (Ef fective 2020-Present) Name:Cari Eugene Member ID:[id number] Relation to Subscriber:Self Name:Cari Eugene Subscriber ID:[id number] Payer ID:[id number] Group ID:Not on file Type:Medicare Address: [facility] Handseeing Information [facility] [address] [facility] [place] [address] [facility] MEDICARE PART A & B [facility] MEDICARE PART A & B [facility] MEDICARE PART A & [place] [address] [place] [address] MEDICARE PART A & B [facility] MEDICARE PART A & B [facility] MEDICARE PART A & B [facility] Address: [address] [place] [address] MEDICARE PART A & B MEDICARE PART A & B Care Teams International Relations Teacher Relationship Specialty Start Date End Date Ida Campa MD [address] [place] [phone] PCP - General 09/13/17 PoIda MD [address] [place] [address] Historical LMR Provider 06/28/17 Janis Stoll MD [address] [facility], [address] [place] [address] Historical LMR Provider 06/28/17 Additional Source Comments The information contained in this document represents components of the legal health record. It is not the complete legal health record.[facility]
--- OUTSIDE RECORDS SUMMARY | 2025-05-15 13:34 | XMS_ITS | Encounter Summary ---
Author Organization [facility] Address [address] [place] [address] Phone Care Team Providers Care Weatherization Technician Name Role Phone Roberth Smith Unavailable [phone] Ida Campa MD Unavailable [phone] Janis Stoll MD Unavailable Zainab Wakefield RD Unavailable [email or web address] Ida Campa MD Primary Care Provider Encounter Details Date Type Department Care Team (Late st Contact Info) Description 03/03/2021 Ancillary Orders Virtual Department [address] [place] [address] Ida Campa MD [address] [place] [phone] Breast screening Social History Tobacco Use [...] MAMMOGRAM SCREENING WITH TOMOSYNTHESIS WITH CAD (BILATERAL) (05/23/2021 2:52 PM EDT) Anatomical Region Laterality Modality Breast Left, Breast Right, Breast Bilateral Bila teral Mammography 05/23/2021 4:04 PM EDT Impressions 05/23/2021 4:09 PM EDT No findings suspicious for malignancy are identified. In the absence of a worrisome palpable abnormality, annual screening mammography is recommended. BI-RADS CATEGORY: 1 - Negative. DENSITY: The breast tissue is heterogeneously dense, which could obscure a lesion on mammography. Narrative 05/23/2021 4:09 PM EDT COMPARISON: 04/16/2015 through 05/21/2020 Bilateral 3-D tomosynthesis with 2-D reconstructions in the CC and MLO projection. Computer-aided detection system was utilized. No new mass, asymmetry, architectural distortion or suspicious calcifications have become apparent on either side. Procedure Note Holland Howell MD - 05/23/2021 COMPARISON: 04/16/2015 through 05/21/2020 Bilateral 3-D tomosynthesis with 2-D reconstructions in the CC and MLOprojection. Computer-aided detection system was utilized. No new mass, asymmetry, architectural distortion or suspiciouscalcifications have become apparent on either side. IMPRESSION: No findings suspicious for malignancy are identified. In the absence of aworrisome palpable abnormality, annual screening mammography isrecommended. BI-RADS CATEGORY: 1 - Negative. DENSITY: The breast tissue is heterogeneously dense, which could obscurea lesion on mammography. Ida Campa MD IMG MG EXAMS Final Result documented in this encounter Visit Diagnoses Diagnosis Breast screening Breast screening, unspecified Breast screening Breast screening, unspecified documented in this encounter Care Teams Weatherization Technician Relationship Specialty Start Date End Date Ida Campa MD [address] [place] [address] [place] [phone] PCP - General 09/13/17 Roberth Smith PA [address] [place] [address] Historical LMR Provider 06/28/17 2 Ida Campa MD [address] [place] [address] [address] [place] [phone] Historical LMR Provider 06/28/17 Janis Stoll MD [address] [facility], [address] [place] [address] Historical LMR Provider 06/28/17 Zainab Wakefield RDCS Historical LMR Provider 06/28/17 09/17/21 documented as of this encounter Additional Source Comments The information contained in this document represents components of the legal health record. It is not the complete legal health record.[facility]
--- OUTSIDE RECORDS SUMMARY | 2025-05-15 13:34 | XMS_ITS | Encounter Summary ---
Author Organization [facility] Address [address] [facility] [address] [place] [address] Phone Care Team Providers Care Final Inspector And Tester Name Role Phone Roberth Smith Unavailable [phone] Ida Campa MD Unavailable [phone] Janis Stoll MD Unavailable Zainab Wakefield RD Unavailable [email or web address] Ida Campa MD Primary Care Provider [phone] Encounter Details Date Type Department Care Team (Late st Contact Info) Description 04/16/2020 Ancillary Orders Virtual Department [address] [place] [address] Ida Campa MD [address] [place] [phone] Breast screening Social History Tobacco Use [...] MAMMOGRAM SCREENING WITH TOMOSYNTHESIS WITH CAD (BILATERAL) (05/21/2020 4:08 PM EDT) Anatomical Region Laterality Modality Breast Left, Breast Right, Breast Bilateral Bila teral Mammography 05/21/2020 4:17 PM EDT Impressions 05/21/2020 4:20 PM EDT No mammographic evidence of malignancy. Recommend routine annual surveillance. BI-RADS CATEGORY 2 - BENIGN DENSITY: The breast tissue is heterogeneously dense, an appearance which lowers the sensitivity of mammography. Narrative 05/21/2020 4:20 PM EDT 64-year-old female with no current breast symptoms. Comparison made to previous on 04/28/2019 and as far back as 04/14/2014. Interpretation made in conjunction with computer-aided detection and tomosynthesis. The breasts are heterogeneously dense, which may obscure small masses. Stable subtle 4 mm circumscribed low-density mass in the posterior upper outer left breast which is likely an incidental lymph node or cyst. There are no suspicious masses, areas of architectural distortion, or suspicious clusters of microcalcifications. Ida Campa MD IMG MG EXAMS Final Result documented in this encounter Visit Diagnoses Diagnosis Breast screening Breast screening, unspecified Breast screening Breast screening, unspecified documented in this encounter Care Teams Final Inspector And Tester Relationship Specialty Start Date End Date Ida Campa MD [address] [place] [phone] PCP - General 09/13/17 Roberth Smith PA [address] [place] [address] Historical LMR Provider 06/28/17 2 Ida Campa MD [address] [place] [phone] Historical LMR Provider 06/28/17 Janis Stoll MD [address] [place] [address], [address] [place] [address] Historical LMR Provider 06/28/17 Zainab Wakefield RDCS [email or web address] Historical LMR Provider 06/28/17 09/17/21 documented as of this encounter Additional Source Comments The information contained in this document represents components of the legal health record. It is not the complete legal health record.[facility]
--- OUTSIDE RECORDS SUMMARY | 2025-05-15 13:34 | XMS_ITS | Encounter Summary ---
Author Organization [facility] Address [address] [place] [address] Phone Care Team Providers Care Welder Production Line Arc Name Role Phone Ida Campa MD Unavailable [phone] Janis Stoll MD Unavailable Ida Campa MD Primary Care Provider Encounter Details Date Type Department Care Team (Late st Contact Info) Description 03/10/2022 Procedure Pass [facility], [address] [address] Social History Tobacco Use Types Packs/Day Years [...] on file documented as of this encounter Visit Diagnoses Not on filedocumented in this encounter Care Teams Welder Production Line Arc Relationship Specialty Start Date End Date Ida Campa MD [address] [place] [address] PCP - General 09/13/17 Ida Campa MD [address] [place] [address] Drive [address] [place] [address] Historical LMR Provider 06/28/17 Janis Stoll MD [address] [facility], [address] [place] [address] [email or web address] Historical LMR Provider 06/28/17 documented as of this encounter Additional Source Comments The information contained in this document represents components of the legal health record. It is not the complete legal health record.[facility]
--- OUTSIDE RECORDS SUMMARY | 2025-05-15 13:34 | XMS_ITS | Encounter Summary ---
Author Organization [facility] Address [address] [place] [address] Phone Care Team Providers Care Flight Dispatcher Name Role Phone Ida Campa MD Unavailable [phone] Jansi Stoll MD Unavailable Ida Campa MD Primary Care Provider [phone] Encounter Details Date Type Department Care Team (Late st Contact Info) Description 03/10/2022 Transcribe Orders Virtual Department [address] [place] [address] Ida Campa MD [address] [place] [address] Encounter for screening mammogram for malignant neoplasm of breast (Primary Dx) Social History Tobacco Use Types Packs/Day Years [...] MAMMOGRAM SCREENING WITH TOMOSYNTHESIS WITH CAD (BILATERAL) (05/25/2022 3:23 PM EDT) Anatomical Region Laterality Modality Breast Left, Breast Right, Breast Bilateral Bila teral Mammography 05/25/2022 3:25 PM EDT Impressions 05/25/2022 3:38 PM EDT No mammographic evidence of malignancy. Recommend routine annual surveillance. BI-RADS CATEGORY: 1 - Negative. DENSITY: The breast tissue is heterogeneously dense, which could obscure a lesion on mammography. Narrative 05/25/2022 3:38 PM EDT 66-year-old female. Comparison made to previous on 05/23/2021 and as far back as 11/27/2003. Interpretation made in conjunction with computer-aided detection and tomosynthesis. The breasts are heterogeneously dense, which may obscure small masses. There are no suspicious masses, areas of architectural distortion, or suspicious clusters of microcalcifications. us Provider Not In System PhD IMG MG EXAMS Final Result documented in this encounter Visit Diagnoses Diagnosis Encounter for screening mammogram for malignant neoplasm of breast- Primary Encounter for screening mammogram for malignant neoplasm of breast documented in this encounter Care Teams Flight Dispatcher Relationship Specialty Start Date End Date Ida Campa MD [address] [place] [address] [place] [phone] PCP - General 09/13/17 Ida Campa MD [address] [place] [address] [place] [phone] Historical LMR Provider 06/28/17 Janis Stoll MD [address] [facility], [address] [place] [address] [email or web address] Historical LMR Provider 06/28/17 documented as of this encounter Additional Source Comments The information contained in this document represents components of the legal health record. It is not the complete legal health record.[facility]
--- OUTSIDE RECORDS SUMMARY | 2025-05-15 13:34 | XMS_ITS | Encounter Summary ---
Author Organization [facility] Address [address] [place] [address] Phone Care Team Providers Care Assembler Caterpillar Spider Name Role Phone Ida Campa MD Unavailable [phone] Janis Stoll MD Unavailable Ida Campa MD Primary Care Provider [phone] Encounter Details Date Type Department Care Team (Late st Contact Info) Description 04/15/2025 Transcribe Orders Virtual Department [address] [place] [address] Ida Campa MD [address] [place] [address] Breast screening (Primary Dx) Social History Tobacco Use Types [...] as of this encounter Plan of Treatment Scheduled Orders Name Type Priority Associated Diagnoses Orde r Schedule Mammogram Screening (Bilateral) Imaging Routine Breast screening Expected: 05/16/2025, Expires: 04/15/2026 documented as of this encounter Visit Diagnoses Diagnosis Breast screening- Primary Breast screening, unspecified documented in this encounter Care Teams Assembler Caterpillar Spider Relationship Specialty Start Date End Date Ida Campa MD [address] [place] [phone] PCP - General 09/13/17 Ida Campa MD [address] [place] [address] Drive [address] [place] [phone] Historical LMR Provider 06/28/17 Janis Stoll MD [address] [facility], [address] [place] [address] [email or web address] Historical LMR Provider 06/28/17 documented as of this encounter Additional Source Comments The information contained in this document represents components of the legal health record. It is not the complete legal health record.[facility]
--- OUTSIDE RECORDS SUMMARY | 2025-05-15 13:34 | XMS_ITS | Encounter Summary ---
Author Organization [facility] Address [address] [facility] [address] [place] [address] Phone Care Team Providers Care Tierce Filler Name Role Phone Roberth Smith Unavailable [phone] Ida Campa MD Unavailable [phone] Janis Stoll MD Unavailable Zainab Wakefield RD Unavailable [email or web address] Ida Campa MD Primary Care Provider [phone] Encounter Details Date Type Department Care Team (Late st Contact Info) Description 05/11/2020 Procedure Pass [address] [id number] Social History Tobacco Use Types Packs/Day Years [...] on filedocumented in this encounter Care Teams Tierce Filler Relationship Specialty Start Date End Date Ida Campa MD [address] [place] [address] PCP - General 09/13/17 Roberth Smith PA [address] [place] [address] Historical LMR Provider 06/28/17 2 Ida Campa MD [address] [place] [address] [place] [phone] Historical LMR Provider 06/28/17 Janis Stoll MD [address] [facility], [address] [place] [address] Historical LMR Provider 06/28/17 Zainab Wakefield, EBONI Historical LMR Provider 06/28/17 09/17/21 documented as of this encounter Additional Source Comments The information contained in this document represents components of the legal health record. It is not the complete legal health record.[facility]
--- OUTSIDE RECORDS SUMMARY | 2025-05-15 13:34 | XMS_ITS | Encounter Summary ---
Author Organization [facility] Address [address] [facility] [address] [place] [address] Phone Care Team Providers Care Senior Sous Chef Name Role Phone Ida Campa MD Unavailable [phone] Janis Stoll MD Unavailable Ida Campa MD Primary Care Provider [phone] Encounter Details Date Type Department Care Team (Late st Contact Info) Description 02/28/2023 Procedure Pass [facility] [address] [place] [address] Social History Tobacco Use Types Packs/Day Years [...] on filedocumented in this encounter Care Teams Senior Sous Chef Relationship Specialty Start Date End Date Ida Campa MD [address] [place] [address] [place] [address] PCP - General 09/13/17 Ida Campa MD [address] [place] [address] [place] [address] Historical LMR Provider 06/28/17 Janis Stoll MD [address] [place] [address], [address] [place] [address] [email or web address] Historical LMR Provider 06/28/17 documented as of this encounter Additional Source Comments The information contained in this document represents components of the legal health record. It is not the complete legal health record.[facility]
--- OUTSIDE RECORDS SUMMARY | 2025-05-15 13:34 | XMS_ITS | Encounter Summary ---
Author Organization [facility] Address [address] [facility] [address] [place] [address] Phone Care Team Providers Care Barrel Filler Head Name Role Phone Roberth Smith Unavailable [phone] Ida Campa MD Unavailable [phone] Janis Stoll MD Unavailable Zainab Wakefield RD Unavailable [email or web address] Ida Campa MD Primary Care Provider [phone] Encounter Details Date Type Department Care Team (Late st Contact Info) Description 03/03/2021 Procedure Pass [address] [address] Social History Tobacco Use Types Packs/Day Years [...] on filedocumented in this encounter Care Teams Barrel Filler Head Relationship Specialty Start Date End Date Ida Campa MD [address] [place] [address] PCP - General 09/13/17 Roberth Smith PA [address] [place] [address] Historical LMR Provider 06/28/17 2 Ida Campa MD [address] [place] [address] [place] [phone] Historical LMR Provider 06/28/17 Janis Stoll MD [address] [place] [address], [address] [place] [address] Historical LMR Provider 06/28/17 Zainab Wakefield, EBONI Historical LMR Provider 06/28/17 09/17/21 documented as of this encounter Additional Source Comments The information contained in this document represents components of the legal health record. It is not the complete legal health record.[facility]
--- OUTSIDE RECORDS SUMMARY | 2025-05-15 13:34 | XMS_ITS | Encounter Summary ---
Author Organization [facility] Address [address] [facility] [address] [place] [address] Phone Care Team Providers Care Presser And Blocker Knitted Goods Name Role Phone Ida Campa MD Unavailable [phone] Janis Stoll MD Unavailable Ida Campa MD Primary Care Provider [phone] Encounter Details Date Type Department Care Team (Late st Contact Info) Description 03/06/2024 Procedure Pass [facility] 30 [place] [address] Social History Tobacco Use Types Packs/Day Years [...] on filedocumented in this encounter Care Teams Presser And Blocker Knitted Goods Relationship Specialty Start Date End Date Ida Campa MD [address] [place] [address] [place] [address] PCP - General 09/13/17 Ida Campa MD [address] [place] [address] [place] [address] Historical LMR Provider 06/28/17 Janis Stoll MD [address] [place] [address], [address] [place] [address] [email or web address] Historical LMR Provider 06/28/17 documented as of this encounter Additional Source Comments The information contained in this document represents components of the legal health record. It is not the complete legal health record.[facility]
== END 2025-05-15 13:25 | disposition home or self-care (01) ==
LOC: CF 13:24
DX: Z13.89 Encounter for screening for other disorder (principal)

== ENCOUNTER 2025-06-15 14:42 | Outpatient (REF) | payer MEDICARE, BC, SELFPAY ==
--- OUTSIDE RECORDS SUMMARY | 2024-10-30 10:35 | XMS_ITS ---
Author Organization [facility] Address [address] [place] [phone] Care Team Providers Care Food Trades Assistants Name Role Phone Ida Campa MD Primary Care Provider Fabricio Sutherland Jr REASON FOR VISIT food not going down Encounters Encounter Location Date Provider Diagnosis [facility] [address] [place] [phone] 10/30/2024 Fabricio Sandoval Jr Plan Of Treatment Next Appt Details Provider Name:Fabricio jackson Jr, 03/01/2026 11:10:00 AM, [address] [place] [address], [address], [place], [phone], Progress Notes * GUSTABO EUGENE EDOB:[birth year] (69 yo F)Acc No.[id number]:10/30/2024 Progress Notes Patient: NOEMY TONGAN Brook Provider: Leo Sandoval MD :1955 A ge:69 Y S ex:Female Date:10/30/2024 [id number] Pcp:Ida Campa MD Subjective: * Chief Complaints: * 1 . Food not going down. * Medical History: Objective: * Vitals: Assessment: Plan: * Treatment: * * The named appointment provid er may or may not be the originator of this progress note, and it is not deemed complete until electronically signed by the appointment provider. Sign off status: Pending * Provider: Leo Sandoval MD Date: 0 10/30/2024 Generated for Trena carpio/Genet/Thaddeus on: 1 05:08 PM EDT
--- OUTSIDE RECORDS SUMMARY | 2024-10-31 05:00 | XMS_ITS ---
Author Organization [facility] Address [address] [place] [address] Care Team Providers Care Anodic Operator Name Role Phone Ida Campa MD Primary Care Provider Fabricio Sutherland Jr Unavailable [phone] REASON FOR VISIT dysphagia Medications Medication SIG (Take, Route, Frequency, Duration) Notes Start Date End Date Status Flonase 50 MCG/ACT 1 spray in each nost ril Nasally Once or twice a day Active Triamcinolone Acet-Pentoxifyll 0.1-0.5 % as directed Externally Active Tacrolimus 0.1 % 1 application Identification Technician ally Once a day Active Clobetasol Prop Emollient Base 0.05 % 1 application Externally Twice a day for 10 day(s) Active MiraLax (colon prep) 8.3 ounce ((238) grams mixed with Gatorade or Crystal Light orally begin at 5:00 p.m. the day before the procedure for 1 day 01/27/2021 Active Mometasone Furoate 0.1 % Externally as needed Active Mupirocin 2 % 1 application Identification Technician ally as needed Active Fiber Orally once a day Ac tive Vitamin C 1000 MG 1 tablet Orally Once a day Active ZyrTEC 10 MG 1 tablet Orally Once a day for 30 day(s) Active Simvastatin 5 MG TAKE 1 TABLET BY MARCOS TH EVERY DAY IN THE EVENING Oral for 90 Active Flax Seed Oil 1000 MG as directed Orally twice a day Active Glucosamine 1500 1 tablet with meals Orally Once a day Active Calcium + D 3 1 tablet Orally once a day Active Ocuvite Orally Active oxyBUTYnin Chloride 5 MG 1 tablet Orally Twice a day Active Multi Vitamin/Minerals Orally Active Problems Problem Type SNOMED Code ICD Code Onset Dates Problem Status W/U Status Risk Notes Problem Dysphagia (82105789) Dysphagia (R13.10) Active confirmed Problem Schatzki's ring (09006546) Schatzki's ring (K22.2) Active confirmed Encounters Encounter Location Date Provider Diagnosis [facility] [place] [address] [place] [id number] 10/31/2024 Fabricio Sandoval Jr Dysphagia R13.10 and Schatzki's ring K22.2 Assessments Encounter Date Diagnosis (ICD Code) Assessment Notes Treatment Notes Treatment Clinical Notes Section Notes 10/31/2024 Dysphagia (ICD-10 - R13.10) 10/31/2024 Schatzki's ring (ICD-10 - K22.2) Plan Of Treatment Next Appt Details Provider Name:Fabricio jacksno Jr, 03/01/2026 11:10:00 AM, [address] [place] [address], [address], [place], [address], Progress Notes * GUSTABO EUGENE EDOB:[birth year] (69 yo F)Acc No.[id number]:10/31/2024 EGD/MAC Patient: NOEMY TONGAN Brook Provider: Leo Sandoval MD :1955 A ge:69 Y S ex:Female Date:10/31/2024 Address:[address] [place], [place] [id number] Pcp:Ida Campa MD Subjective: * Chief Complaints: * 1 . Dysphagia. * Medical History: * Medications: T aking Clobetasol Prop Emollient Base 0.05 % Cream 1 application Externally Twice a day , Taking Triamcinolone Acet-Pentoxifyll 0.1-0.5 % Gel as directed Externally , Taking Tacrolimus 0.1 % Ointment 1 application Externally Once a day , Taking Flonase 50 MCG/ACT Suspension 1 spray in each nostril Nasally Once or twice a day , Taking oxyBUTYnin Chloride 5 MG Tablet 1 tablet Orally Twice a day , Taking Multi Vitamin/Minerals Tablet Orally , Taking Ocuvite Tablet Orally , Taking Calcium + D 3 1 tablet Orally once a day , Taking Flax Seed Oil 1000 MG Capsule as directed Orally twice a day , Taking Glucosamine 1500 1 tablet with meals Orally Once a day , Taking Simvastatin 5 MG Tablet TAKE 1 TABLET BY MOUTH EVERY DAY IN THE EVENING Oral , Taking ZyrTEC 10 MG Tablet 1 tablet Orally Once a day , Taking Fiber Orally once a day , Taking Vitamin C 1000 MG Tablet 1 tablet Orally Once a day , Taking Mometasone Furoate 0.1 % Cream Externally as needed , Taking Mupirocin 2 % Ointment 1 application Externally as needed , Taking MiraLax (colon prep) 8.3 ounce ((238) grams mixed with Gatorade or Crystal Light orally begin at 5:00 p.m. the day before the procedure Objective: * Vitals: Assessment: * Assessment: 1. D ysphagia - R13.10 (Primary) 2 . S piyushki's ring - K22.2 ? Plan: * Treatment: * Procedure Codes: 4 3239 UPPER GI ENDOSCOPY, BIOPSY, [address] ESOPH ENDOSCOPY, DILATION, Modifiers: 59 * * The named appointment provid er may or may not be the originator of this progress note, and it is not deemed complete until electronically signed by the appointment provider. Sign off status: Pending * Provider: Leo Sandoval MD Date: 0 10/31/2024 Generated for Trena carpio/Genet/Thaddeus on: 1 05:08 PM EDT
--- OUTSIDE RECORDS SUMMARY | 2025-06-15 17:08 | XMS_ITS | Encounter Summary ---
Author Organization [facility] Address [address] [facility] [address] [place] [address] Phone Care Team Providers Care Analytics Consultant Name Role Phone Ida Campa MD Unavailable [phone] Janis Stoll MD Unavailable Ida Campa MD Primary Care Provider [phone] Encounter Details Date Type Department Care Team (Late st Contact Info) Description 03/10/2022 Transcribe Orders Virtual Department 30 [place] [address] Ida Campa MD [address] [place] [address] Encounter for screening mammogram for [...] breast documented in this encounter Care Teams Analytics Consultant Relationship Specialty Start Date End Date Ida Campa MD [address] [place] [address] [place] [phone] PCP - General 09/13/17 Ida Campa MD [address] [place] [address] [place] [phone] Historical LMR Provider 06/28/17 Janis Stoll MD [address] [facility], [address] [place] [address] [email or web address] Historical LMR Provider 06/28/17 documented as of this encounter Additional Source Comments The information contained in this document represents components of the legal health record. It is not the complete legal health record.[facility]
--- OUTSIDE RECORDS SUMMARY | 2025-06-15 17:08 | XMS_ITS | Encounter Summary ---
Author Organization [facility] Address [address] [facility] [address] [place] [address] Phone Care Team Providers Care Operating Room Registered Nurse Name Role Phone Roberth Smith Unavailable Ida Campa MD Unavailable [phone] Janis Stoll MD Unavailable Zainab Wakefield RD Unavailable [email or web address] Ida Campa MD Primary Care Provider [phone] Encounter Details Date Type Department Care Team (Late st Contact Info) Description 03/15/2018 Ancillary Orders Virtual Department 30 [place] [address] Ida Campa MD [address] [place] [address] Breast screening Social History Tobacco Use [...] unspecified documented in this encounter Care Teams Operating Room Registered Nurse Relationship Specialty Start Date End Date Ida Campa MD [address] [place] [address] [place] [address] PCP - General 09/13/17 Roberth Smith PA 4 [place] [address] Historical LMR Provider 06/28/17 2 Ida Campa MD [address] [place] [address] [address] [place] [address] Historical LMR Provider 06/28/17 Janis Stoll MD [address] [facility], [address] [place] [address] Historical LMR Provider 06/28/17 Zainab Wakefield RDCS Historical LMR Provider 06/28/17 09/17/21 documented as of this encounter Additional Source Comments The information contained in this document represents components of the legal health record. It is not the complete legal health record.[facility]
--- OUTSIDE RECORDS SUMMARY | 2025-06-15 17:08 | XMS_ITS | Encounter Summary ---
Author Organization [facility] Address [address] [facility] [address] [place] [address] Phone Care Team Providers Care Bindery Worker Name Role Phone Roberth Smith Unavailable [phone] Ida Campa MD Unavailable [phone] Janis Stoll MD Unavailable Zainab Wakefield RD Unavailable [email or web address] Ida Campa MD Primary Care Provider [phone] Encounter Details Date Type Department Care Team (Late st Contact Info) Description 02/04/2019 Ancillary Orders Virtual Department 30 [place] [address] Ida Campa MD [address] [place] [address] Breast screening Social History Tobacco Use [...] lowers the sensitivity of mammography. POS - [id number] Narrative 04/28/2019 1:10 PM EDT 63-year-old female [...] whichlowers the sensitivity of mammography. POS - [id number] Ida RONG MG EXAMS Final Result documented in this encounter Visit Diagnoses Diagnosis Breast screening Breast screening, unspecified Breast screening Breast screening, unspecified documented in this encounter Care Teams Bindery Worker Relationship Specialty Start Date End Date Ida Campa MD [address] [facility] [address] [place] [phone] PCP - General 09/13/17 Roberth Smith PA [address] [place] [address] Historical LMR Provider 06/28/17 2 Ida Campa MD [address] [place] [address] [place] [phone] Historical LMR Provider 06/28/17 Janis Stoll MD [address] [place] [address], [address] [address] Historical LMR Provider 06/28/17 Zainab Wakefield, EBONI Historical LMR Provider 06/28/17 09/17/21 documented as of this encounter Additional Source Comments The information contained in this document represents components of the legal health record. It is not the complete legal health record.[facility]
--- OUTSIDE RECORDS SUMMARY | 2025-06-15 17:08 | XMS_ITS | Encounter Summary ---
Author Organization [facility] Address [address] [facility] [address] [place] [address] Phone Care Team Providers Care Vest Front Presser Name Role Phone Ida Campa MD Unavailable [phone] Janis Stoll MD Unavailable Ida Campa MD Primary Care Provider [phone] Encounter Details Date Type Department Care Team (Late st Contact Info) Description 03/10/2022 Procedure Pass [facility], [address] [address] Social History Tobacco Use Types Packs/Day Years [...] on filedocumented in this encounter Care Teams Vest Front Presser Relationship Specialty Start Date End Date Ida Campa MD [address] [place] [address] PCP - General 09/13/17 Ida Campa MD [address] [place] [address] Drive [address] [place] [address] Historical LMR Provider 06/28/17 Janis Stoll MD [address] [facility], [address] [place] [address] [email or web address] Historical LMR Provider 06/28/17 documented as of this encounter Additional Source Comments The information contained in this document represents components of the legal health record. It is not the complete legal health record.[facility]
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
--- OUTSIDE RECORDS SUMMARY | 2025-06-15 17:08 | XMS_ITS | Clinical Summary ---
Author Organization [facility] Address [address] [place] [address] Phone Care Team Providers Care Freight Caller Name Role Phone Ida Campa MD Unavailable [phone] Janis Stoll MD Unavailable Ida Campa MD Primary Care Provider [phone] Allergies No known active allergies Medications calcium carbonate-vitam in D3 1,500 mg (600 mg elemental)-200 units Tab 1 tablet with food Active clobetasol (TEMOVATE) 0.05 % cream 1 application to affected area Active polycarbophil (FIBERCON) 625 mg tablet Active Medication-Free Text Flax seed oil Active fluticasone propionate (FLONASE) 50 mcg/actuation nasal spray 1 spray in each nostril Active glucosam storey dpw-qrmbvnwen-G -Mn 742-326-46-3 mg Cap Active mometasone (ELOCON) 0.1 % ointment 1 application to affected area Active MULTIVIT WITH MINERALS/LUTEIN (MULTIVITAMIN 50 PLUS ORAL) Active mupirocin (BACTROBAN) 2 % ointment 1 application to affected area Active vitamin A,C & M-tmfhdu-zzocco ls (OCUVITE) 300 mcg-200 mg-27 mg-2 mg [...] Encounters Date Type Department Care Team Description 05/20/2025 Orders Only [facility] [address] [facility] [address] [place] [address] Abigail Persaud MD 04/15/2025 Transcribe Orders Virtual Department 30 [place] [address] Po, Ida Power MD Breast screening (Primary Dx) from Last 3 Months Immunizations Immunization Administration Dates Next Due COVID-19 (Pre-07/02) Moderna Vaccine, mRNA, PF 11/08/2020,10/08/2020 [id number] FORMULATION 07/30/2009 INFLUENZA, SPLIT VIRUS, TRIVALENT PF [...] INITIAL (ONE-TIME) 2020 INFLUENZA VACCINE (#1) 2025 3, 06/26/2022, 06/24/2021, Additional history exists LIPID PANEL [...] SEE NARRATIVE - 10/17/2023 1:16 PM EST [address] [address] Patient Services Coordinator: Nela Castro MD MANAGER DENTAL Cytology Report FINAL DIAGNOSIS A. PAP SMEAR (SUREPATH) CE: SPECIMEN ADEQUACY: Satisfactory for evaluation; transformation zone present. Evaluation limited by scant cellularity. INTERPRETATION: NEGATIVE FOR INTRAEPITHELIAL LESION OR MALIGNANCY. Atrophy. Electronically Signed Out By: Zee Menendez CT(ASCP) SAÚL Alvarado(ASCP) The Pap test is a [...] 59, 66, 68) Note: Testing performed by [employer] HR-HPV analysis. Clinical correlation is advised. This HPV test was performed at [facility], [address] [place] [address]. This test has been FDA approved for [employer] cervical cytology specimens. The accuracy and precision of this test for all other specimen sources has been verified in the Cytopathology Laboratory of the [facility] and has not been cleared or [...] F Institution: [facility] Location: [facility] Date of Collection: 10/11/2023 Date of Reported: 10/17/2023 13:16 Results to: Mikaela Morgan MD us Mikaela Morgan MD CYTOLOGY ORDERABLES Final Result SEE NARRATIVE * (ABNORMAL) Lipid panel (04/19/2020 7:36 AM EDT) HDL 66 mg/dL [facility] Comment: Interpretation <40 mg/dL: Low HDL cholesterol (major risk factor for CHD) Greater than or equal to 60 mg/dL: High HDL cholesterol ( negative risk factor for CHD) HDL - cholesterol is affected by a number of factors, e.g. smoking, excerise, hormones, sex and age. CHOLESTEROL 214 0 - 240 mg/dL [facility] TRIGLYCERIDES 89 30 - 160 mg/dL [facility] LDL 130(H) 50 - 129 mg/dL [facility] Comment: LDL levels in terms of risk for coronary heart disease: <100 mg/dL: Optimal 100-129 mg/dL: Near or above optimal 130-159 mg/dL: Borderline high 160-189 mg/dL: High >190 mg/dL: Very High CARDIAC RISK RATIO 3.2(L) 3.3 - 4.4 C [facility] Blood 04/19/2020 7:36 AM EDT 04/19/2020 7:42 AM EDT us Ida Campa MD LAB BLOOD ORDERABLES Final Re sult [facility] [address] [place], [place] [phone] from Last 3 Months or Most Recently Relevant to Health Maintenance Insurance [facility] MEDICARE PART A & B MEDICARE PART A & B MEDICARE PART A & B MEDICARE PART A & [place] [address] [address] MEDICARE PART A & B MEDICARE PART A & B MEDICARE PART A & B [facility] MEDICARE PART A & B [facility] MEDICARE PART A & B Care Teams Freight Caller Relationship Specialty Start Date End Date Ida Campa MD [address] [facility] [address] [place] [phone] PCP - General 09/13/17 Ida Campa MD [address] [place] [address] [place] [phone] Historical LMR Provider 06/28/17 Janis Stoll MD [address] [place] [address], [address] [place] [address] Historical LMR Provider 06/28/17 Additional Source Comments The information contained in this document represents components of the legal health record. It is not the complete legal health record.[facility]
--- OUTSIDE RECORDS SUMMARY | 2025-06-15 17:08 | XMS_ITS | Encounter Summary ---
Author Organization [facility] Address [address] [facility] [address] [place] [address] Phone Care Team Providers Care Cdl Driver Name Role Phone Ida Campa MD Unavailable [phone] Janis Stoll MD Unavailable Ida Campa MD Primary Care Provider [phone] Encounter Details Date Type Department Care Team (Late st Contact Info) Description 02/28/2023 Procedure Pass [facility] [address] [place] [address] Social History Tobacco Use Types Packs/Day Years [...] on filedocumented in this encounter Care Teams Cdl Driver Relationship Specialty Start Date End Date Ida Campa MD [address] [place] [address] [place] [address] PCP - General 09/13/17 Ida Campa MD [address] [place] [address] [place] [address] Historical LMR Provider 06/28/17 Janis Stoll MD [address] [place] [address], [address] [place] [address] [email or web address] Historical LMR Provider 06/28/17 documented as of this encounter Additional Source Comments The information contained in this document represents components of the legal health record. It is not the complete legal health record.[facility]
--- OUTSIDE RECORDS SUMMARY | 2025-06-15 17:09 | XMS_ITS | Encounter Summary ---
Author Organization [facility] Address [address] [facility] [address] [place] [address] Phone Care Team Providers Care Physics And Astronomy Professor Name Role Phone Roberth Smith Unavailable [phone] Ida Campa MD Unavailable [phone] Janis Stoll MD Unavailable Zainab Wakefield RD Unavailable [email or web address] Ida Campa MD Primary Care Provider [phone] Encounter Details Date Type Department Care Team (Late st Contact Info) Description 03/03/2021 Ancillary Orders Virtual Department 30 [place] [address] Ida Campa MD [address] [place] [address] Breast screening Social History Tobacco Use [...] unspecified documented in this encounter Care Teams Physics And Astronomy Professor Relationship Specialty Start Date End Date Ida Campa MD [address] [place] [address] [place] [address] PCP - General 09/13/17 Roberth Smith PA 4 [place] [address] Historical LMR Provider 06/28/17 2 Ida Campa MD [address] [place] [address] [address] [place] [address] Historical LMR Provider 06/28/17 Janis Stoll MD [address] [facility], [address] [place] [address] Historical LMR Provider 06/28/17 Zainab Wakefield RDCS Historical LMR Provider 06/28/17 09/17/21 documented as of this encounter Additional Source Comments The information contained in this document represents components of the legal health record. It is not the complete legal health record.[facility]
--- OUTSIDE RECORDS SUMMARY | 2025-06-15 17:09 | XMS_ITS | Encounter Summary ---
Author Organization [facility] Address [address] [place] [address] Phone Care Team Providers Care Lube Worker Name Role Phone Roberth Smith Unavailable [phone] Ida Campa MD Unavailable [phone] Janis Stoll MD Unavailable Zainab Wakefield RD Unavailable [email or web address] Ida Campa MD Primary Care Provider [phone] Encounter Details Date Type Department Care Team (Late st Contact Info) Description 05/11/2020 Procedure Pass [address] [id number] Social History Tobacco Use Types Packs/Day Years [...] on filedocumented in this encounter Care Teams Lube Worker Relationship Specialty Start Date End Date Ida Campa MD [address] [place] [address] PCP - General 09/13/17 Roberth Smith PA [address] [place] [phone] Historical LMR Provider 06/28/17 2 Ida Campa MD [address] [place] [address] [place] [phone] Historical LMR Provider 06/28/17 Janis Stoll MD [address] [facility] [address] [facility], [address] [place] [address] Historical LMR Provider 06/28/17 Zainab Wakefield, EBONI Historical LMR Provider 06/28/17 09/17/21 documented as of this encounter Additional Source Comments The information contained in this document represents components of the legal health record. It is not the complete legal health record.[facility]
--- OUTSIDE RECORDS SUMMARY | 2025-06-15 17:09 | XMS_ITS | Encounter Summary ---
Author Organization [facility] Address [address] [place] [address] Phone Care Team Providers Care Book Packer Name Role Phone Roberth Smith Unavailable [phone] Ida Campa MD Unavailable [phone] Janis Stlol MD Unavailable Zainab Wakefield RD Unavailable [email or web address] Ida Campa MD Primary Care Provider [phone] Encounter Details Date Type Department Care Team (Late st Contact Info) Description 04/16/2020 Ancillary Orders Virtual Department 30 [place] [address] Ida Campa MD [address] [place] [phone] Breast screening Social History Tobacco Use [...] unspecified documented in this encounter Care Teams Book Packer Relationship Specialty Start Date End Date Ida Campa MD [address] [place] [phone] PCP - General 09/13/17 Roberth Smith PA 4 [place] [address] Historical LMR Provider 06/28/17 2 Ida Campa MD [address] [place] [phone] Historical LMR Provider 06/28/17 Janis Stoll MD [address] [place] [address], [address] [place] [address] Historical LMR Provider 06/28/17 Zainab Wakefield RDCS [email or web address] Historical LMR Provider 06/28/17 09/17/21 documented as of this encounter Additional Source Comments The information contained in this document represents components of the legal health record. It is not the complete legal health record.[facility]
--- OUTSIDE RECORDS SUMMARY | 2025-06-15 17:09 | XMS_ITS | Encounter Summary ---
Author Organization [facility] Address [address] [place] [address] Phone Care Team Providers Care Sewer Pipe Layer Name Role Phone Roberth Smith Unavailable Ida Campa MD Unavailable Janis Stoll MD Unavailable Zainab Wakefield RD Unavailable [email or web address] Ida Campa MD Primary Care Provider [phone] Encounter Details Date Type Department Care Team (Late st Contact Info) Description 03/03/2021 Procedure Pass [address] [address] Social History Tobacco Use Types Packs/Day Years [...] on filedocumented in this encounter Care Teams Sewer Pipe Layer Relationship Specialty Start Date End Date Ida Campa MD [address] [place] [address] PCP - General 09/13/17 Roberth Smith PA [address] [place] [phone] Historical LMR Provider 06/28/17 2 Ida Campa MD [address] [place] [address] [place] [phone] Historical LMR Provider 06/28/17 Janis Stoll MD [address] [place] [address], [address] [place] [address] Historical LMR Provider 06/28/17 Zainab Wakefield, EBONI Historical LMR Provider 06/28/17 09/17/21 documented as of this encounter Additional Source Comments The information contained in this document represents components of the legal health record. It is not the complete legal health record.[facility]
--- OUTSIDE RECORDS SUMMARY | 2025-06-15 17:09 | XMS_ITS | Encounter Summary ---
Author Organization [facility] Address [address] [place] [address] Phone Care Team Providers Care Coo Name Role Phone Ida Campa MD Unavailable [phone] Janis Stoll MD Unavailable Ida Campa MD Primary Care Provider [phone] Encounter Details Date Type Department Care Team (Late st Contact Info) Description 04/15/2025 Transcribe Orders Virtual Department 30 [place] [address] Ida Campa MD [address] [place] [address] Breast screening (Primary Dx) Social [...] unspecified documented in this encounter Care Teams Coo Relationship Specialty Start Date End Date Ida Campa MD [address] [place] [phone] PCP - General 09/13/17 Ida Campa MD [address] [place] [address] [address] [place] [phone] Historical LMR Provider 06/28/17 Janis Stoll MD [address] [facility], [address] [place] [address] [email or web address] Historical LMR Provider 06/28/17 documented as of this encounter Additional Source Comments The information contained in this document represents components of the legal health record. It is not the complete legal health record.[facility]
--- OUTSIDE RECORDS SUMMARY | 2025-06-15 17:09 | XMS_ITS | Encounter Summary ---
Author Organization [facility] Address [address] [place] [address] Phone Care Team Providers Care Marketing Analyst Name Role Phone Ida Campa MD Unavailable [phone] Janis Stoll MD Unavailable Ida Campa MD Primary Care Provider [phone] Encounter Details Date Type Department Care Team (Late st Contact Info) Description 03/06/2024 Procedure Pass [facility] [address] [place] [address] Social History Tobacco Use Types Packs/Day Years [...] on filedocumented in this encounter Care Teams Marketing Analyst Relationship Specialty Start Date End Date Ida Campa MD [address] [place] [address] [place] [phone] PCP - General 09/13/17 Ida Campa MD [address] [place] [address] [place] [phone] Historical LMR Provider 06/28/17 Janis Stoll MD [address] [place] [address], [address] [place] [address] [email or web address] Historical LMR Provider 06/28/17 documented as of this encounter Additional Source Comments The information contained in this document represents components of the legal health record. It is not the complete legal health record.[facility]
== END 2025-06-15 14:43 | disposition home or self-care (01) ==
LOC: HO.MAMMO 14:42
PROVIDERS: PCP Internal Medicine; Visit Provider Internal Medicine
DX: Z12.31 Encounter for screening mammogram for malignant neoplasm of breast (principal)
CPT/HCPCS: 77063; 77067

== ENCOUNTER → 2025-06-15 15:00 | Outpatient (BNV) | payer MEDICARE, BC, SELFPAY | PROVIDERS: PCP Internal Medicine; Visit Provider Internal Medicine | DX: Z12.31 Encounter for screening mammogram for malignant neoplasm of breast (principal) | CPT/HCPCS: 77063; 77067 ==

== ENCOUNTER 2025-06-18 07:31 | Outpatient (REF) | payer MEDICARE, BC, SELFPAY ==
[2025-06-18 11:36] LABS: MANUAL DIFF FLAG NO
[2025-06-18 11:43] LABS: Hematocrit 40.1 % (37.0-47.0); Hemoglobin 13.3 g/dl (12.0-16.0); Imm Gran Abs Auto 0.01 X10*3/uL (0.00-0.03); Imm Gran Pct Auto 0.3 % (0.0-0.4); Lymphocytes Absolute Auto 1.4 X10*3/uL (1.2-4.9); Mean Corpuscular HGB Conc 33.2 g/dl (31.0-35.0); Mean Corpuscular Hemoglobin 30.0 pg (27.0-33.0); Mean Corpuscular Volume 90.5 fL (80.0-98.0); NRBC Abs Auto 0.000 X10*3/uL (0.0-0.012); NRBC Pct Auto 0.0 /100WBC (0.0-0.2); Platelet Count 242 X10*3/uL (160-400); Red Blood Count 4.43 X10*6/uL (4.20-5.50); White Blood Count 4.0 X10*3/uL (4.8-10.8)
[2025-06-18 12:14] LABS: Alanine Aminotransferase 46 U/L (0-31); Albumin Level 4.3 g/dL (3.5-5.0); Alkaline Phosphatase 83 U/L (39-117); Anion Gap 11 (12-20); Aspartate Amino Transferase 45 U/L (5-31); Blood Urea Nitrogen 21 mg/dL (9-16); Calcium 9.9 mg/dL (8.4-10.2); Carbon Dioxide 29 mmol/L (22-29); Chloride 108 mmol/L (96-108); Cholesterol 198 mg/dL (<200); Estimated Glomerular Filt Rate > 60; Free T4 (Free Thyroxine) 0.86 ng/dL (0.71-1.85); HDL Cholesterol 48 mg/dL (>40); Magnesium 2.1 mg/dL (1.6-2.6); Potassium 4.5 mmol/L (3.3-5.1); Sodium 143 mmol/L (135-145); Thyroid Stimulating Hormone 3.27 uIU/mL (0.32-4.0); Total Protein 6.8 g/dL (6.5-8.0); Triglycerides 91 mg/dL (<150)
[2025-06-18 12:32] LABS: Folate 14.2 ng/mL (> or = 4.0); Vitamin B12 632 pg/mL (200-900)
== END 2025-06-18 07:32 | disposition home or self-care (01) ==
LOC: HO.WFDLDS 07:31
PROVIDERS: Visit Provider Internal Medicine
DX: K21.9 Gastro-esophageal reflux disease without esophagitis (principal); E78.00 Pure hypercholesterolemia, unspecified
CPT/HCPCS: 36415; 80053; 80061; 82306; 82607; 82746; 83735; 84439; 84443; 85025

== ENCOUNTER 2025-06-29 14:51 | Outpatient (AMB) | payer MEDICARE, BC, SELFPAY ==
--- OUTSIDE RECORDS SUMMARY | 2024-10-30 10:35 | XMS_ITS ---
Author Organization [facility] Address [address] [facility] [address] [place] [phone] Care Team Providers Care Process Supervisor Name Role Phone Ida Campa MD Primary Care Provider Fabricio Sutherland Jr [phone] REASON FOR VISIT food not going down Encounters Encounter Location Date Provider Diagnosis [facility] [address] [place] [address] 10/30/2024 Fabricio Sandoval Jr Plan Of Treatment Next Appt Details Provider Name:Fabricio jackson Jr, 03/01/2026 11:10:00 AM, [address] [place] [address], [address], [place], [phone], Progress Notes * GUSTABO EUGENE EDOB:[birth year] (69 yo F)Acc No.[id number]:10/30/2024 Progress Notes Patient: NOEMY TONGAN Brook Provider: Leo Sandoval MD :1955 A ge:69 Y S ex:Female Date:10/30/2024 [facility] Pcp:Ida Campa MD Subjective: * Chief Complaints: [...] 10/30/2024 Generated for Trena carpio/Genet/Thaddeus on: 1 07:03 PM EDT
--- OUTSIDE RECORDS SUMMARY | 2024-10-31 05:00 | XMS_ITS ---
Author Organization [facility] Address [address] [place] [phone] Care Team Providers Care Paper Conservator Name Role Phone Ida Campa MD Primary Care Provider Fabricio Sutherland Jr Unavailable [phone] REASON FOR VISIT dysphagia Medications Medication SIG (Take, Route, Frequency, Duration) Notes Start Date End Date Status Flonase 50 MCG/ACT 1 spray in each nost ril Nasally Once or twice a day Active Triamcinolone Acet-Pentoxifyll 0.1-0.5 % as directed Externally Active Tacrolimus 0.1 % 1 application Chromosomal Disorders Counselor ally Once a day Active Clobetasol Prop Emollient Base 0.05 % 1 application Externally Twice a day; Duration: 10 day(s) Active MiraLax (colon prep) 8.3 ounce ((238) grams mixed with Gatorade or Crystal Light orally begin at 5:00 p.m. the day before the procedure; Duration: 1 day 01/27/2021 Active Mometasone Furoate 0.1 % Externally as needed Active Mupirocin 2 % 1 application Chromosomal Disorders Counselor ally as needed Active Fiber Orally once a day Ac tive Vitamin C 1000 MG 1 tablet Orally Once a day Active ZyrTEC 10 MG 1 tablet Orally Once a day; Duration: 30 day(s) Active Simvastatin 5 MG TAKE 1 TABLET BY MARCOS TH EVERY DAY IN THE EVENING Oral; Duration: 90 Active Flax Seed Oil 1000 MG [...] Status W/U Status Risk Notes Problem Dysphagia (80695731) Dysphagia (R13.10) Active confirmed Problem Schatzki's ring (62964115) Schatzki's ring (K22.2) Active confirmed Encounters Encounter Location Date Provider Diagnosis [facility] [place] [address] [place] [phone] 10/31/2024 Fabricio Sandoval Jr Dysphagia R13.10 and Schatzki's ring K22.2 Assessments Encounter Date Diagnosis (ICD Code) Assessment Notes Treatment Notes Treatment Clinical Notes Section Notes 10/31/2024 Dysphagia (ICD-10 - R13.10) 10/31/2024 Schatzki's ring (ICD-10 - K22.2) Plan Of Treatment Next Appt Details Provider Name:Fabricio jackson Jr, 03/01/2026 11:10:00 AM, [address] [place] [address], [address], [place], [address], Progress Notes * GUSTABO EUGENE EDOB:[birth year] (69 yo F)Acc No.[id number]:10/31/2024 EGD/MAC Patient: GUSTABO TONG Provider: Leo Sandoval MD :1955 A ge:69 Y S ex:Female Date:10/31/2024 Address:[address] [place], [place] [id number] Pcp:Ida Campa MD Subjective: * Chief Complaints: [...] Codes: 4 3239 UPPER GI ENDOSCOPY, BIOPSY, [address] ESOPH ENDOSCOPY, DILATION, Modifiers: 59 * * The named appointment provid er may or may not be the originator of this progress note, and it is not deemed complete until electronically signed by the appointment provider. Sign off status: Pending * Provider: Leo Sandoval MD Date: 0 10/31/2024 Generated for Trena carpio/Genet/Thaddeus on: 07:03 PM EDT
[2025-06-29 15:20] VITALS: BP 114/74; PULSE 59; TEMP 36.2; O2SAT 96
--- NOTE | 2025-06-29 15:20 | A.OFFPC_ITS ---
Vital Signs 06/29/25 15:20 Height 5 ft 4.5 in Weight 118 lb 6 oz BMI 20.0 BP 114/74 Blood Pressure Location Lt brachial Position Sitting Pulse 59 Pulse Source Pulse Oximeter Temp 97.1 F Temp Source Temporal Artery Scan Pulse Oximetry (%) 96 Oxygen Delivery Method Room Air Intake Visit Reasons: PE Allergies Seasonal Allergies Allergy (Intermediate, Verified 06/29/25 15:23) Itchy Eyes Medication List - Last Reconciled 06/29/25 by Ida Campa MD ascorbate calcium (vitamin C) 500 mg PO DAILY C,E,copper,zinc 35-beqrc8o-mxd 250-5-1 mg (Ocuvite Adult 50 Plus) 1 cap PO DAILY calcium carb,lactat-vitamin D3 200 mg-6.25 mcg (250 unit) 2 tabs PO DAILY cetirizine 10 mg PO DAILY PRN clobetasol 0.05% 1 appl topical BEDTIME flaxseed oil 1,000 mg PO BID fluticasone propionate 50 mcg/actuation 2 sprays intranasal DAILY xurjbgbx-vkb-ypzus-qul559-tyvn 500-500-66.7 mg (Aykggetnwaz-Qwjivfwavwc-XKY (with antiox)) 2 tabs PO DAILY omeprazole 20 mg PO BID oxybutynin chloride ER 10 mg PO DAILY psyllium husk (Fiber (psyllium husk)) 0.4 grams PO BEDTIME simvastatin 5 mg PO BEDTIME 90 days Tobacco use date assessed: 06/29/25 Fall risk assessment: No Falls in past year Last assessed Fall Risk: 06/29/25 Dental Screening Dental Screen Date: 06/29/25 Did you have a dental visit in the last 12 months?: Yes Did you have a dental problem in the last 6 months where you did not have access to dental care?: No Was dental information given to patient?: Patient has dentist HPI PE HPI Details nausea PFSH Medical History Pulmonary nodule Osteopenia GERD (gastroesophageal reflux disease) Urinary incontinence, mixed History of COVID-19 Vitamin D deficiency Otosclerosis Peptic ulcer disease Allergic rhinitis Cholelithiasis Thyroid nodule Tubular adenoma of colon (~2006) Hypercholesterolemia Surgical History History of eye surgery History of colonoscopy Family History Father Colorectal cancer Mother Colorectal cancer Social History Housing: House Alcohol intake: never Patient Tobacco Use Status: Former Tobacco user Tobacco use type: Cigarette Years Smoked: stopped 12/1986 e-Cigarette/Vaping Use: Never Used Second Hand Smoke Exposure: No Advance Directives Date on File: 06/16/20 service: No Current occupational status: employed Cognitive needs: No Hearing needs: No Vision needs: Yes Questionnaire PHQ-9 Over the last 2 weeks, how often have you been bothered by any of the following problems? 1. Little interest or pleasure in doing things: not at all 2. Feeling down, depressed, or hopeless: not at all 3. Trouble falling or staying asleep, or sleeping too much: not at all 4. Feeling tired or having little energy: not at all 5. Poor appetite or overeating: not at all 6. Feeling bad about yourself - or that you are a failure or have let yourself or your family down: not at all 7. Trouble concentrating on things, such as reading the newspaper or watching television: not at all 8. Moving or speaking so slowly that other people could have noticed. Or the opposite - being so fidgety or restless that you have been moving around a lot more than usual: not at all 9. Thoughts that you would be better off or of hurting yourself in some way: not at all Total score: 0 Depression Screening Interpretation: Negative Depression Screening Done: Yes 33370 - PHQ-9 Billing: Yes Source: Developed by Drs. Wally Agustin, Lenore Garrison, Lee Limon and colleagues, with an educational jose carlos from [email or web address]. Thrive Questionnaire Date Thrive assessed: 06/23/25 I am a: Patient What is your living situation today?: I have a steady place to live Within the past 12 months, did the food you bought not last and you didn't have the money to get more?: Never true Within the past 12 months, did you worry whether your food would run out before you got money to buy more?: Never true Do you have trouble paying for medicines?: No Do you have trouble getting transportation to medical appointments?: No Do you have trouble paying your heating and electricity bill?: No Do you have trouble taking care of your child, family member or friend?: No Do you have trouble with day-to-day activities such as bathing, preparing meals, shopping, managing finances, etc.?: No Are you currently unemployed and looking for a job?: No Are you interested in more education?: No Please select the resources that you would like help with: None Currently or been in a relationship where the following occur: No concerns reported THRIVE Score: 0 AUDIT C Alcohol Use Questionnaire (AUDIT-C) 1. How often do you have a drink containing alcohol?: Never 3. How often do you have six or more drinks on one occasion?: Never Total Score: 0 LANA-7 AMB Questionnaire LANA-7 Date LANA - 7 assessed: 11/27/24 Feeling nervous, anxious, or on edge: 0 = Not at all Not being able to stop or control worryin = Not at all Worrying too much about different things: 0 = Not at all Trouble relaxin = Not at all Being so restless that it is hard to sit still: 0 = Not at all Becoming easily annoyed or irritable: 0 = Not at all Feeling afraid as if something awful might happen: 0 = Not at all Total LANA-7 score (0-4 normal; 5-9 mild; 10-14 moderate; 15-21 severe): 0 Source: Developed by Drs. Wally Agustin, Lenore Garrison, Lee Limon and colleagues, with an educational jose carlos from [employer]. Review of Systems Const Denies poor appetite and Denies weakness Eyes Denies no additional complaints ENT Reports Normal hearing present, Denies dizziness, Denies nasal congestion, Denies tinnitus and Denies sore throat Card Denies chest pain, Denies syncope, Denies rapid heart rate and Denies dyspnea Resp Denies cough and Denies dyspnea GI Denies change in stool character, Reports constipation, Denies diarrhea, Denies nausea and Denies vomiting Denies urinary frequency, Denies difficulty voiding and Denies dysuria Neuro Reports Normal hearing present, Denies confusion, Denies dizziness, Denies syncope and Denies weakness Psych Denies confusion Physical exam (Primary Care) Vital Signs: Last Vital Signs Temp 97.1 F 06/29/25 15:20 Pulse 59 06/29/25 15:20 BP 114/74 06/29/25 15:20 Pulse Ox 96 06/29/25 15:20 Oxygen Delivery Method Room Air 06/29/25 15:20 BMI result Body Mass Index 20.0 Tobacco/Smoking Status: Tobacco use Status Tobacco use date assessed 06/29/25 06/29/25 15:25 Patient Tobacco Use Status Former Tobacco user 06/29/25 15:25 Tobacco use type Cigarette 06/29/25 15:25 e-Cigarette/Vaping Use Never Used 06/29/25 15:25 PHQ-9: PHQ-9 Score PHQ-9: Total score 0 06/29/25 15:56 Depression Screening Interpretation: Negative Thrive Assessment: Date of Thrive Assessment Date Thrive assessed 06/23/25 06/29/25 15:25 Currently or been in a relationship where the following occur: No concerns reported Const General: alert and awake; No confusion Orientation/consciousness: No confusion HENMT Head: Yes normocephalic Ears: external ears normal and TM's normal bilaterally Face and sinus: Yes normal facial exam Mouth: moist mucous membranes Throat: Yes tonsils normal Eyes Conjunctivae: conjunctivae normal Pupils: Equal, round and reactive pupils present and Pupil accommodation reflex normal Direct Ophthalmoscopy: normal light reflex Neck Neck: No lymphadenopathy Thyroid: Thyroid normal Chest Chest palpation & inspection: normal inspection of the chest Resp Effort & Inspection: normal respiratory effort and no audible wheezes Auscultation: clear to auscultation bilaterally, no crackles, no wheezes and lung sounds not diminished Cardio Rate: regular rate Rhythm: regular rhythm Peripheral pulses: radial pulses present and dorsalis pedis present GI Palpation (GI): no masses Auscultation: normal bowel sounds and normoactive bowel sounds Rectal Exam - Female: deferred Skin General skin exam: no rashes or lesions noted Rashes: no rashes Neuro General: deep tendon reflexes 2+ bilaterally and No confusion Cranial nerves: Yes Equal, round and reactive pupils present, Yes Midline tongue present, Yes Normal hearing present and Yes Ability to bilaterally elevate shoulders present Cognition (Neuro): normal cognition Gait exam (Neuro): Normal gait present Motor exam (neuro): 5/5 motor strength present throughout Deep tendon reflexes (DTR's): Right brachioradialis reflex intensity grade: 2+, Left brachioradialis reflex intensity grade: 2+, Right patellar reflex intensity grade: 2+ and Left patellar reflex intensity grade: 2+ Extrem General: No edema Office Procedures Flu Questionnaire Does the patient have a severe egg allergy?: No Does the patient have severe life threatening allergies?: No Does the patient have a fever or illness today?: No Has the patient ever had Guillain-Leb[place] Syndrome?: No Has the patient ever had any past reaction to a flu shot?: No Immunizations Fluarix [id number] (PF) 45 mcg (15 mcg x 3)/0.5 mL IM syringe Performing Provider: Ida Campa MD [facility] Administered by: Abigail Barnes CMA on 06/29/25 15:56 Dose Route Admin Location Dispensed Lot Number Expiration Date NDC Jig Boring Machine Set Up Operator 0.5 mL IM Left Deltoid 0.5 mL [id number] 03/09/26 [id number] [employer] VIS Given Date VIS Provided VIS Publication Date 06/29/25 Single Vaccine 24 Eligibility Eligibility Date Funding Source Not [facility] Eligible 06/29/25 Private Coding Level of Care Code Est Pt Prev Care >65y(52169) Diagnoses Annual physical exam Z00.00 Gastroesophageal reflux disease without esophagitis K21.9 Esophagitis presence: without esophagitis Osteopenia M85.80 Hypercholesterolemia E78.00 Additional Codes PHQ-9 - 39305 - PHQ-9 Billing: Yes ([id number]) Assessment & Plan Assessment & Plan (1) Annual physical exam: Code(s): Z00.00 - Encounter for general adult medical examination without abnormal findings Category: Medical Plan: Patient is advised to eat healthy, keep well hydrated, keep active and have adequate sleep. (2) GERD (gastroesophageal reflux disease): Code(s): K21.9 - Gastro-esophageal reflux disease without esophagitis Category: Medical Qualifiers: Esophagitis presence: without esophagitis Qualified Code(s): K21.9 - Gastro-esophageal reflux disease without esophagitis Plan: Avoid the foods that causes that usually spicy foods, tomato products, juices, coffee, soda and foods that your sensitive to. After eating do not lie down, allow 3-4 hours before in lie down. And keep the head of bed above 30 degrees to avoid the acid from going up. (3) Osteopenia: Onset Date: ~2014 Comment: (Bone Dexa T-score: -2.0 on 05/07/15; -2.1 on 06/23/21) Code(s): M85.80 - Other specified disorders of bone density and structure, unspecified site Category: Medical Plan: Discussed about repeating the bone density for comparison (4) Hypercholesterolemia: Code(s): E78.00 - Pure hypercholesterolemia, unspecified Category: Medical Plan: Avoid fried foods, chicken skin, eggs, butter margarine, pastries and meat. Be it pork or beef they have a lot of cholesterol LDL goal of less than 130 and triglyceride of less than 150 on simvastatin Plan History of Present Illness The patient is a 69-year-old female presenting with a wellness check and management of chronic conditions. She has a history of hypercholesterolemia, which is currently being managed with simvastatin, and the goal is to maintain LDL cholesterol below 130 mg/dL and triglycerides below 150 mg/dL. Her LDL cholesterol has been noted to be elevated in the past. The patient also has osteopenia, with the last bone density scan conducted in July 2023. A repeat bone density scan has been discussed for comparison purposes. She was seen by a physician virtual assistant for advertisers in November 2024 for rhinosinusitis. The patient has Garvey's Esophagus and is currently on omeprazole 20 mg twice a day, with a follow-up planned in 12 months. Recent blood work in June showed mild leukopenia and elevated liver enzymes, while electrolytes and renal function were normal. Health Maintenance - Colonoscopy last performed in February 2021 - Mammogram last performed in June 2025 - Bone density scan last performed in July 2023, repeat discussed Social History Review of Systems Physical Exam General: Cooperative, healthy appearing, comfortable, no acute distress and well developed Orientation: Patient oriented x3 Limitations: No limitations Head: Normal to inspection Ears: Hearing grossly normal bilaterally Nose: Normal external nose present Face and sinus: Normal facial exam Eyes: Appearance normal, both eyes and all related structures Neck: Normal visual inspection and Yes full ROM Respiratory: Normal respiratory effort and able to speak in complete sentences. Clear to auscultation bilaterally Cardiovascular: Regular rate and rhythm. Normal S1 and S2 GI: Normal to inspection. Soft to palpation and nontender Skin: No rashes or lesions noted Neuro: Patient oriented x3 Extremities: Normal to inspection Results - Labs: Mild leukopenia, elevated liver enzymes, normal electrolytes, normal renal function Plan Patient was informed and verbally consented to the use of an ambient scribe for clinic note documentation during this visit. 1. Hypercholesterolemia The patient is managing hypercholesterolemia with simvastatin, aiming for an LDL cholesterol goal of less than 130 mg/dL and triglycerides less than 150 mg/dL. 2. Osteopenia The patient has osteopenia, with a bone density scan last conducted in July 2023, and a repeat scan has been discussed for comparison. 3. Garvey's Esophagus The patient is on omeprazole 20 mg twice daily for Garvey's Esophagus, with a follow-up planned in 12 months. 4. Mild Leukopenia Recent blood work showed mild leukopenia, which will be monitored. 5. Elevated Liver Enzymes The patient has elevated liver enzymes noted in recent blood work, which will be monitored. Discussion Notes Patient Instructions Orders: Orders Influenza [id number] Immunization Today Z23 - Encounter for immunization Medications: Refilled simvastatin 5 mg PO BEDTIME 90 tabs 3RF 90 days E78.00 - Pure hyperch olesterolemia, unspecified
--- OUTSIDE RECORDS SUMMARY | 2025-06-29 19:03 | XMS_ITS | Encounter Summary ---
Author Organization [facility] Address [address] [place] [address] Phone Care Team Providers Care Insurance Consultant Name Role Phone Roberth Smith Unavailable [phone] Ida Campa MD Unavailable [phone] Janis Stoll MD Unavailable Zainab Wakefield RD Unavailable [email or web address] Ida Campa MD Primary Care Provider [phone] Encounter Details Date Type Department Care Team (Late st Contact Info) Description 03/15/2018 Ancillary Orders Virtual Department [address] [place] [address] Ida Campa MD [address] [place] [phone] Breast screening Social History Tobacco Use [...] unspecified documented in this encounter Care Teams Insurance Consultant Relationship Specialty Start Date End Date Ida Campa MD [address] [place] [address] [place] [phone] PCP - General 09/13/17 Roberth Smith PA [address] [place] [address] Historical LMR Provider 06/28/17 2 Ida Campa MD [address] [place] [address] [address] [place] [phone] Historical LMR Provider 06/28/17 Janis Stoll MD [address] [facility], [address] [place] [address] Historical LMR Provider 06/28/17 Zainab Wakefield RDCS Historical LMR Provider 06/28/17 09/17/21 documented as of this encounter Additional Source Comments The information contained in this document represents components of the legal health record. It is not the complete legal health record.[facility]
--- OUTSIDE RECORDS SUMMARY | 2025-06-29 19:03 | XMS_ITS | Clinical Summary ---
Author Organization [facility] Address [address] [place] [address] Phone Care Team Providers Care Public Relations Account Supervisor Name Role Phone Ida Campa MD Unavailable [phone] Janis Stoll MD Unavailable Ida Campa MD Primary Care Provider [phone] Allergies No known active allergies Medications calcium carbonate-vitam in D3 1,500 mg (600 mg elemental)-200 units Tab 1 tablet with food Active clobetasol (TEMOVATE) 0.05 % cream 1 application to affected area Active polycarbophil (FIBERCON) 625 mg tablet Active Medication-Free Text Flax seed oil Active fluticasone propionate (FLONASE) 50 mcg/actuation nasal spray 1 spray in each nostril Active glucosam storey vgn-phdyjuhee-V -Mn 530-223-68-3 mg Cap Active mometasone (ELOCON) 0.1 % ointment 1 application to affected area Active MULTIVIT WITH MINERALS/LUTEIN (MULTIVITAMIN 50 PLUS ORAL) Active mupirocin (BACTROBAN) 2 % ointment 1 application to affected area Active vitamin A,C & G-pgnifj-ctxpxv ls (OCUVITE) 300 mcg-200 mg-27 mg-2 mg [...] Department Care Team Description 05/20/2025 Orders Only [facility] [address] [facility] [address] [place] [address] Abigail Persaud MD 04/15/2025 Transcribe Orders Virtual Department 30 [place] [address] Po, Ida Power MD Breast screening (Primary Dx) from Last 3 Months Immunizations Immunization Administration Dates Next Due COVID-19 (Pre-07/02) Moderna Vaccine, mRNA, PF 11/08/2020,10/08/2020 [id number] FORMULATION 07/30/2009 INFLUENZA, SPLIT VIRUS, TRIVALENT PF [...] Date Last Done Comments DEPRESSION SCREENING 1967 SMOKING Hx and SMOKELESS TOBACCO SCREENING 1968 HEPATITIS C SCREENING 1973 COLOGUARD 2000 COLONOSCOPY [...] Completed 06/09/2022, 05/11/2021 RSV VACCINE Completed 08/20/2023 HEPATITIS A VACCINES Aged Out No long [...] * Pap Test (10/11/2023 12:00 AM EST) Report [address] [address] Director Stars: Nela Csatro MD MANUFACTURING AUTOMATION ENGINEER Cytology Report FINAL DIAGNOSIS A. PAP SMEAR [...] 59, 66, 68) Note: Testing performed by DNS:[email or web address] HR-HPV analysis. Clinical correlation is advised. This HPV test was performed at [address] This test has been FDA approved for SurePath cervical cytology specimens. The accuracy and precision of this test for all other specimen sources has been verified in the Cytopathology Laboratory of the [facility] and has not been cleared or approved by the U.S. Food and Drug Administration. Clinical correlation is advised. CLINICAL HISTORY Date of Last Menstrual Period: Not Provided Menstrual History: Post Menopausal Infection History: HPV: OTHER HIGH RISK, 2020 Other Clinical Conditions: Diagnostic Pap SPECIMEN SOURCE A: PAP SMEAR (SUREPATH) CE Patient Name: CARI EUGENE : 1955 (Age: 68) Sex: F Institution: [facility] Location: [facility] Date of Collection: 10/11/2023 Date of Reported: 10/17/2023 13:16 Results to: Mikaela Morgan MD [facility] Final Diagnosis A. PAP SMEAR (SUREPATH) CE: SPECIMEN ADEQUACY: Satisfactory for evaluation; transformation zone present. Evaluation limited by scant cellularity. INTERPRETATION: NEGATIVE FOR INTRAEPITHELIAL LESION OR MALIGNANCY. Atrophy. [facility] Results\Inter pretation A. PAP SMEAR (SUREPATH) CE: Human Papilloma Virus TestNEGATIVE for high-risk Human Papilloma Virus types 16, 18, 45 and the Other high risk probe set (Includes 31, 33, 35, 39, 51, 52, 56, 58, 59, 66, 68)Note: Testing performed by [employer] HR-HPV analysis. Clinical correlation is advised. This HPV test was performed at [address] This test has been FDA approved for SurePath cervical cytology specimens. The accuracy and precision of this test for all other specimen sources has been verified in the Cytopathology Laboratory of the [facility] and has not been cleared or approved by the U.S. Food and Drug Administration. Clinical correlation is advised. [facility] Conversion Type (Conversion Source) 10/11/2023 10/12/2023 9:30 AM EST Mikaela Morgan MD CYTOLOGY ORDERABLES Edited Result - Final [address] [address] * (ABNORMAL) Lipid panel (04/19/2020 7:36 AM EDT) HDL 66 mg/dL [facility] Comment: Interpretation <40 mg/dL: Low HDL cholesterol (major risk factor for CHD) Greater than or equal to 60 mg/dL: High HDL cholesterol ( negative risk factor for CHD) HDL - cholesterol is affected by a number of factors, e.g. smoking, excerise, hormones, sex and age. CHOLESTEROL 214 0 - 240 mg/dL [facility] TRIGLYCERIDES 89 30 - 160 mg/dL [facility] LDL 130(H) 50 - 129 mg/dL [facility] Comment: LDL levels in terms of risk for coronary heart disease: <100 mg/dL: Optimal 100-129 mg/dL: Near or above optimal 130-159 mg/dL: Borderline high 160-189 mg/dL: High >190 mg/dL: Very High CARDIAC RISK RATIO 3.2(L) 3.3 - 4.4 [facility] Blood 04/19/2020 7:36 AM EDT 04/19/2020 7:42 AM EDT Ida Campa MD LAB BLOOD ORDERABLES Final Re sult [address] [address] from Last 3 Months or Most Recently Relevant to Health Maintenance Insurance [facility] MEDIC[facility] PART A & B [facility] MEDICARE PART A & B MEDICARE PART A & [place] [address] [place] [address] MEDICARE PART A & B [facility] MEDICARE PART A & B [facility] MEDICARE PART A & B MEDICARE PART A & B MEDICARE PART A & B MEDICARE PART A & B Care Teams Public Relations Account Supervisor Relationship Specialty Start Date End Date Ida Campa MD [address] [place] [address] [place] [phone] PCP - General 09/13/17 Ida Campa MD [address] [place] [address] [address] [place] [address] Historical LMR Provider 06/28/17 Janis Stoll MD [address] [place] [address], [address] [place] [address] [email or web address] Historical LMR Provider 06/28/17 Additional Source Comments The information contained in this document represents components of the legal health record. It is not the complete legal health record.[facility]
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
--- OUTSIDE RECORDS SUMMARY | 2025-06-29 19:03 | XMS_ITS | Encounter Summary ---
Author Organization [facility] Address [address] [place] [address] Phone Care Team Providers Care Pairer Inspector Name Role Phone Roberth Smith Unavailable Ida Campa MD Unavailable [phone] Janis Stoll MD Unavailable Zainab Wakefield RD Unavailable [email or web address] Ida Campa MD Primary Care Provider [phone] Encounter Details Date Type Department Care Team (Late st Contact Info) Description 02/04/2019 Ancillary Orders Virtual Department [address] [place] [address] Ida Campa MD [address] [place] [phone] Breast screening Social History Tobacco Use [...] lowers the sensitivity of mammography. POS - [id number] Narrative 04/28/2019 1:10 PM EDT 63-year-old female [...] whichlowers the sensitivity of mammography. POS - [id number] Ida RONG MG EXAMS Final Result documented in this encounter Visit Diagnoses Diagnosis Breast screening Breast screening, unspecified Breast screening Breast screening, unspecified documented in this encounter Care Teams Pairer Inspector Relationship Specialty Start Date End Date Ida Campa MD [address] [facility] [address] [place] [phone] PCP - General 09/13/17 Roberth Smith PA [address] [place] [address] Historical LMR Provider 06/28/17 2 Ida Campa MD [address] [place] [address] [place] [phone] Historical LMR Provider 06/28/17 Janis Stoll MD [address] [place] [address], [address] [address] Historical LMR Provider 06/28/17 Zainab Wakefield, EBONI Historical LMR Provider 06/28/17 09/17/21 documented as of this encounter Additional Source Comments The information contained in this document represents components of the legal health record. It is not the complete legal health record.[facility]
--- OUTSIDE RECORDS SUMMARY | 2025-06-29 19:04 | XMS_ITS | Encounter Summary ---
Author Organization [facility] Address [address] [facility] [address] [place] [address] Phone Care Team Providers Care Media Specialist Name Role Phone Ida Campa MD Unavailable [phone] Janis Stoll MD Unavailable Ida Campa MD Primary Care Provider [phone] Encounter Details Date Type Department Care Team (Late st Contact Info) Description 04/15/2025 Transcribe Orders Virtual Department [address] [place] [address] Ida Campa MD [address] [place] [address] Breast screening (Primary Dx) Social [...] unspecified documented in this encounter Care Teams Media Specialist Relationship Specialty Start Date End Date Ida Campa MD [address] [facility] [place] [phone] PCP - General 09/13/17 Ida Campa MD [address] [place] [address] Drive [address] [place] [phone] Historical LMR Provider 06/28/17 Janis Stoll MD [address] [facility], [address] [place] [address] [email or web address] Historical LMR Provider 06/28/17 documented as of this encounter Additional Source Comments The information contained in this document represents components of the legal health record. It is not the complete legal health record.[facility]
--- OUTSIDE RECORDS SUMMARY | 2025-06-29 19:04 | XMS_ITS | Encounter Summary ---
Author Organization [facility] Address [address] [facility] [address] [place] [address] Phone Care Team Providers Care Bottle Caser Name Role Phone Roberth Smith Unavailable [phone] Ida Campa MD Unavailable [phone] Janis Stoll MD Unavailable Zainab Wakefield RD Unavailable [email or web address] Ida Campa MD Primary Care Provider [phone] Encounter Details Date Type Department Care Team (Late st Contact Info) Description 05/11/2020 Procedure Pass [address] [phone] Social History Tobacco Use Types Packs/Day Years [...] on filedocumented in this encounter Care Teams Bottle Caser Relationship Specialty Start Date End Date Ida Campa MD [address] [place] [address] PCP - General 09/13/17 Roberth Smith PA [address] [place] [address] Historical LMR Provider 06/28/17 2 Ida Campa MD [address] [place] [address] [place] [phone] Historical LMR Provider 06/28/17 Janis Stoll MD [address] [facility], [address] [place] [address] Historical LMR Provider 06/28/17 Zainab Wakefield, EBONI Historical LMR Provider 06/28/17 09/17/21 documented as of this encounter Additional Source Comments The information contained in this document represents components of the legal health record. It is not the complete legal health record.[facility]
--- OUTSIDE RECORDS SUMMARY | 2025-06-29 19:04 | XMS_ITS | Encounter Summary ---
Author Organization [facility] Address [address] [facility] [address] [place] [address] Phone Care Team Providers Care Wellness Trainer Name Role Phone Ida Campa MD Unavailable [phone] Janis Stoll MD Unavailable Ida Campa MD Primary Care Provider [phone] Encounter Details Date Type Department Care Team (Late st Contact Info) Description 03/10/2022 Transcribe Orders Virtual Department 30 [place] [address] Ida Campa MD [address] [place] [address] Encounter for screening mammogram for [...] breast documented in this encounter Care Teams Wellness Trainer Relationship Specialty Start Date End Date Ida Campa MD [address] [place] [address] [place] [phone] PCP - General 09/13/17 Ida Campa MD [address] [place] [address] [place] [phone] Historical LMR Provider 06/28/17 Janis Stoll MD [address] [facility], [address] [place] [address] [email or web address] Historical LMR Provider 06/28/17 documented as of this encounter Additional Source Comments The information contained in this document represents components of the legal health record. It is not the complete legal health record.[facility]
--- OUTSIDE RECORDS SUMMARY | 2025-06-29 19:04 | XMS_ITS | Encounter Summary ---
Author Organization [facility] Address [address] [facility] [facility] [address] [place] [address] Phone Care Team Providers Care Hammer Repairer Name Role Phone Roberth Smith Unavailable [phone] Ida Campa MD Unavailable [phone] Janis Stoll MD Unavailable Zainab Wakefield RD Unavailable [email or web address] Ida Campa MD Primary Care Provider [phone] Encounter Details Date Type Department Care Team (Late st Contact Info) Description 03/03/2021 Procedure Pass [address] [address] Social History Tobacco Use Types Packs/Day Years [...] on filedocumented in this encounter Care Teams Hammer Repairer Relationship Specialty Start Date End Date Ida Campa MD [address] [place] [address] PCP - General 09/13/17 Roberth Smith PA [address] [place] [address] Historical LMR Provider 06/28/17 2 Ida Campa MD [address] [place] [address] [place] [phone] Historical LMR Provider 06/28/17 Janis Stoll MD [address] [place] [address], [address] [place] [address] Historical LMR Provider 06/28/17 Zainab Wakefield, EBONI Historical LMR Provider 06/28/17 09/17/21 documented as of this encounter Additional Source Comments The information contained in this document represents components of the legal health record. It is not the complete legal health record.[facility]
--- OUTSIDE RECORDS SUMMARY | 2025-06-29 19:04 | XMS_ITS | Encounter Summary ---
Author Organization [facility] Address [address] [facility] [facility] [address] [place] [address] Phone Care Team Providers Care Opticianry Teacher Name Role Phone Roberth Smith Unavailable [phone] Ida Campa MD Unavailable [phone] Janis Stoll MD Unavailable Zainab Wakefield RD Unavailable [email or web address] Ida Campa MD Primary Care Provider [phone] Encounter Details Date Type Department Care Team (Late st Contact Info) Description 03/03/2021 Ancillary Orders Virtual Department [address] [place] [address] Ida Campa MD [address] [place] [address] Breast screening Social History Tobacco Use [...] unspecified documented in this encounter Care Teams Opticianry Teacher Relationship Specialty Start Date End Date Ida Campa MD [address] [place] [address] [place] [phone] PCP - General 09/13/17 Roberth Smith PA [address] [place] [address] Historical LMR Provider 06/28/17 2 Ida Campa MD [address] [place] [address] [address] [place] [address] Historical LMR Provider 06/28/17 Janis Stoll MD [address] [facility], [address] [place] [address] Historical LMR Provider 06/28/[address]CS Historical LMR Provider 06/28/17 09/17/21 documented as of this encounter Additional Source Comments The information contained in this document represents components of the legal health record. It is not the complete legal health record.[facility]
--- OUTSIDE RECORDS SUMMARY | 2025-06-29 19:04 | XMS_ITS | Encounter Summary ---
Author Organization [facility] Address [address] [facility] [address] [place] [address] Phone Care Team Providers Care Junior Accountant Name Role Phone Ida Campa MD Unavailable [phone] Janis Stoll MD Unavailable Ida Campa MD Primary Care Provider Encounter Details Date Type Department Care Team (Late st Contact Info) Description 03/06/2024 Procedure Pass [facility] [address] [place] [address] Social History Tobacco Use Types Packs/Day Years [...] on filedocumented in this encounter Care Teams Junior Accountant Relationship Specialty Start Date End Date Ida Campa MD [address] [place] [address] [place] [phone] PCP - General 09/13/17 Ida Campa MD [address] [place] [address] [place] [phone] Historical LMR Provider 06/28/17 Janis Stoll MD [address] [place] [address], [address] [place] [address] [email or web address] Historical LMR Provider 06/28/17 documented as of this encounter Additional Source Comments The information contained in this document represents components of the legal health record. It is not the complete legal health record.[facility]
--- OUTSIDE RECORDS SUMMARY | 2025-06-29 19:04 | XMS_ITS | Encounter Summary ---
Author Organization [facility] Address [address] [facility] [address] [place] [address] Phone Care Team Providers Care Real Estate Services Administrator Name Role Phone Ida Campa MD Unavailable [phone] Janis Stoll MD Unavailable Ida Campa MD Primary Care Provider [phone] Encounter Details Date Type Department Care Team (Late st Contact Info) Description 03/10/2022 Procedure Pass [facility], [address] [address] Social History Tobacco Use Types Packs/Day Years [...] on filedocumented in this encounter Care Teams Real Estate Services Administrator Relationship Specialty Start Date End Date Ida Campa MD [address] [place] [address] PCP - General 09/13/17 Ida Campa MD [address] [place] [address] Drive [address] [place] [address] Historical LMR Provider 06/28/17 Janis Stoll MD [address] [facility], [address] [place] [address] [email or web address] Historical LMR Provider 06/28/17 documented as of this encounter Additional Source Comments The information contained in this document represents components of the legal health record. It is not the complete legal health record.[facility]
--- OUTSIDE RECORDS SUMMARY | 2025-06-29 19:04 | XMS_ITS | Encounter Summary ---
Author Organization [facility] Address [address] [place] [address] Phone Care Team Providers Care Cd Mixer Helper Name Role Phone Roberth Smith Unavailable [phone] Ida Campa MD Unavailable [phone] Janis Stoll MD Unavailable Zainab Wakefield RD Unavailable [email or web address] Ida Campa MD Primary Care Provider [phone] Encounter Details Date Type Department Care Team (Late st Contact Info) Description 04/16/2020 Ancillary Orders Virtual Department [address] [place] [address] Ida Campa MD [address] [place] [phone] Breast screening Social History Tobacco Use [...] unspecified documented in this encounter Care Teams Cd Mixer Helper Relationship Specialty Start Date End Date Ida Campa MD [address] [place] [phone] PCP - General 09/13/17 Roberth Smith PA [address] [place] [address] Historical LMR Provider 06/28/17 2 Ida Campa MD [address] [place] [phone] Historical LMR Provider 06/28/17 Janis Stoll MD [address] [place] [address], [address] [place] [address] Historical LMR Provider 06/28/17 Zainab Wake[address] RDCS Historical LMR Provider 06/28/17 09/17/21 documented as of this encounter Additional Source Comments The information contained in this document represents components of the legal health record. It is not the complete legal health record.[facility]
--- OUTSIDE RECORDS SUMMARY | 2025-06-29 19:04 | XMS_ITS | Encounter Summary ---
Author Organization [facility] Address [address] [place] [phone] Phone Care Team Providers Care Lab Manager Name Role Phone Ida Campa MD Unavailable [phone] Janis Stoll MD Unavailable Ida Campa MD Primary Care Provider [phone] Encounter Details Date Type Department Care Team (Late st Contact Info) Description 02/28/2023 Procedure [facility] [address] [place] [address] Social History Tobacco Use Types Packs/Day Years [...] on filedocumented in this encounter Care Teams Lab Manager Relationship Specialty Start Date End Date Ida Campa MD [address] [place] [address] [place] [phone] PCP - General 09/13/17 Ida Campa MD [address] [place] [address] [place] [phone] Historical LMR Provider 06/28/17 Janis Stoll MD [address] [place] [address], [address] [place] [address] [email or web address] Historical LMR Provider 06/28/17 documented as of this encounter Additional Source Comments The information contained in this document represents components of the legal health record. It is not the complete legal health record.[facility]
== END 2025-06-29 15:58 | disposition home or self-care (01) ==
LOC: HO.HMCH 14:51
PROVIDERS: PCP Internal Medicine; Visit Provider Internal Medicine
DX: Z00.00 Encounter for general adult medical examination without abnormal findings (principal); K21.9 Gastro-esophageal reflux disease without esophagitis; M85.80 Other specified disorders of bone density and structure, unspecified site; E78.00 Pure hypercholesterolemia, unspecified; Z23 Encounter for immunization

== ENCOUNTER → 2025-06-29 14:51 | Outpatient (BNVA) | payer MEDICARE, BC, SELFPAY | PROVIDERS: PCP Internal Medicine; Visit Provider Internal Medicine | DX: Z00.00 Encounter for general adult medical examination without abnormal findings (principal); K21.9 Gastro-esophageal reflux disease without esophagitis; M85.80 Other specified disorders of bone density and structure, unspecified site; E78.00 Pure hypercholesterolemia, unspecified; K22.70 Barrett's esophagus without dysplasia; D72.819 Decreased white blood cell count, unspecified; R79.89 Other specified abnormal findings of blood chemistry; Z23 Encounter for immunization | CPT/HCPCS: 90471; 90656; 96127; 99397 ==